=== PATIENT | female | born 2005 | race Two or more races ===

== ENCOUNTER 2023-11-05 13:56 | Outpatient (OUT) | payer OTHER, SELFPAY ==
--- NOTE | 2023-11-05 14:00 | US_ITS ---
[address] [address] Patient Name: ISIAH MARIE MRN: [id number] date: 2005 Sex: F Assigned Patient Location: [facility] Current Patient Location: [facility] Accession/Order Number: [id number] Exam Date: 11/05/2023 14:00 Report Date: 11/05/2023 15:42 At the request of: BRAYDON GOODEN Procedure: US OB transvaginal EXAMINATION: US OB transvaginal HISTORY: MISSED MENSES COMPARISON: No relevant comparison available. FINDINGS: GESTATIONAL SAC: Present and normal appearing. YOLK SAC: Present and normal appearing. POLE: Present and normal appearing. CARDIAC: Present. UTERUS: Normal size and appearance. OVARIES: Right: Normal. Left: Normal. CERVIX: 3.9 cm in length and closed. CUL-DE-SAC: Normal. OTHER: None. AGE BY LMP: 9 weeks 6 days LOUIE BY LMP: 06/03/2024 AGE BY US CRL: 10 weeks 1 day LOUIE BY US CRL: 06/01/2024 US/US OB transvaginal IMPRESSION: 1. Single live intrauterine . Electronically authenticated by: LUPILLO CARDONA Date: 11/05/2023 15:42
== END 2023-11-05 13:57 | disposition home or self-care (01) ==
LOC: NOMS 13:56
PROVIDERS: Family Provider Family Medicine; PCP Family Medicine; Visit Provider Obstetrics & Gynecology
DX: Z34.91 Encounter for supervision of normal pregnancy, unspecified, first trimester (principal); Z3A.10 10 weeks gestation of pregnancy; N92.6 Irregular menstruation, unspecified
CPT/HCPCS: 76817

== ENCOUNTER 2023-11-30 13:22 | Outpatient (OUT) | payer OTHER, SELFPAY ==
[2023-11-30 14:02] LABS: Basophils Percent Auto 0.3 % (0.2-2.0); Eosinophils Absolute Auto 0.1 10^3/uL (0.0-0.7); Eosinophils Percent Auto 0.7 % (0.9-7.0); Hematocrit 36.4 % (36.0-48.0); Hemoglobin 12.4 g/dL (12.0-16.0); Immature Granulocytes Abs Auto 0.06 10^3/uL (0.00-0.03); Immature Granulocytes Pct Auto 0.5 % (0.0-0.5); Lymphocytes Absolute Auto 1.5 10^3/uL (1.2-3.8); Lymphocytes Percent Auto 13.1 % (20.5-60.0); Mean Corpuscular HGB Conc 34.1 g/dL (29.9-35.2); Mean Corpuscular Hemoglobin 28.1 pg (26.7-34.0); Mean Corpuscular Volume 82.4 fL (81.0-99.0); Mean Platelet Volume 9.7 fL (9.5-13.5); Monocytes Absolute Auto 0.6 10^3/uL (0.3-0.8); Monocytes Percent Auto 4.8 % (1.7-12.0); Neutrophils Absolute Auto 9.3 10^3/uL (1.4-6.5); Neutrophils Percent Auto 80.6 % (43.0-75.0); Platelet Count 244 10^3/uL (150-450); Red Blood Count 4.42 10^6/uL (4.20-5.40); Red Cell Distribution Width 13.1 % (11.0-15.0); White Blood Count 11.6 10^3/uL (4.0-11.0)
[2023-11-30 14:12] LABS: Estimated Average Glucose 82 mg/dL; Glycohemoglobin A1C 4.5 % (4.5-6.2)
[2023-12-01 06:09] LABS: HBsAg Screen Negative (Negative); HCV Ab Non Reactive (Non Reactive); HIV Ab/p24 Ag Screen Non Reactive (Non Reactive)
[2023-12-01 12:09] LABS: Rubella Antibodies, IgG <0.90 index (Immune >0.99)
[2023-12-01 13:09] LABS: Rapid Plasma Reagin, Quant Non Reactive titer (NonRea<1:1)
== END 2023-11-30 13:23 | disposition home or self-care (01) ==
LOC: LAB 13:25
PROVIDERS: Family Provider Family Medicine; PCP Family Medicine; Visit Provider Obstetrics & Gynecology
DX: N92.6 Irregular menstruation, unspecified (principal)
CPT/HCPCS: 36415; 83036; 85025; 86592; 86762; 86803; 86850; 86900; 86901; 87086; 87340; 87389

== ENCOUNTER 2024-01-15 11:00 | Outpatient (OUT) | payer OTHER, SELFPAY ==
[2024-01-17 01:07] LABS: AFP Value 74.7 ng/mL (.); Insulin Dep Diabetes No (.); OSBR Risk 1 IN 3810 (.); Results Report (.)
== END 2024-01-15 11:01 | disposition home or self-care (01) ==
LOC: LAB 11:04
PROVIDERS: Family Provider Family Medicine; PCP Family Medicine; Visit Provider Obstetrics & Gynecology
DX: Z34.92 Encounter for supervision of normal pregnancy, unspecified, second trimester (principal); Z3A.17 17 weeks gestation of pregnancy
CPT/HCPCS: 36415; 82105

== ENCOUNTER 2024-01-18 18:52 | Outpatient (OUT) | payer OTHER, SELFPAY ==
--- NOTE | 2024-01-18 18:55 | US_ITS ---
[address] [address] Patient Name: ISIAH MARIE MRN: [id number] date: 2005 Sex: F Assigned Patient Location: US Current Patient Location: Accession/Order Number: [id number] Exam Date: 01/18/2024 19:06 Report Date: 01/19/2024 06:44 At the request of: BRAYDON GOODEN Procedure: US OB cervical length EXAMINATION: US OB anatomy, US OB cervical length HISTORY: SCREENING, , FOR ANATOMIC SURVEY Z36.89 COMPARISON: No relevant comparison available. TECHNIQUE: Transabdominal sonographic examination was performed for obstetrical and evaluation. FINDINGS: Number: 1 Heart Rate: 145.2 bpm H.B. /min Amniotic Fluid Volume: Subjectively normal Placental Location: Anterior with lower margin 4.8 cm from os. Cervix Length: 5.5 cm, closed. ANATOMY: Normal Structures -cerebellum, choroid plexus, cisterna magna, lateral cerebral ventricles, orbits, midline falx, hard palate, four-chamber heart, stomach, kidneys, bladder, umbilical cord insertion into abdomen, three-vessel cord, right upper extremity, left upper extremity, right lower extremity, left lower extremity. SUBOPTIMALLY SEEN: Cardiac outflow tracts and spine due to position. ABNORMALITIES: None BIOMETRY: BPD: 4.6 cm 20 weeks 0 days HC: 18.1 cm 20 weeks 4 days AC: 16.0 cm 21 weeks 1 days FL: 3.4 cm 20 weeks 4 days EFW:378.3 grams; 67% FL/AC: 21.0 FL/BPD: 72.9 HC/AC: 1.1 GESTATIONAL AGE: Age by EDC: 20 weeks 3 days LOUIE by EDC: 06/03/2023 Age by current US: 20 weeks 4 days LOUIE by current US: 06/02/2024 US/US OB cervical length IMPRESSION: 1. Single live intrauterine with growth detailed above. 2. Suboptimal visualization of the cardiac outflow tracts and the spine due to position. Electronically authenticated by: LUPILLO CARDONA Date: 01/19/2024 06:44
--- NOTE | 2024-01-18 18:55 | US_ITS ---
[address] [address] Patient Name: ISIAH MARIE MRN: [id number] date: 2005 Sex: F Assigned Patient Location: US Current Patient Location: Accession/Order Number: [id number] Exam Date: 01/18/2024 19:06 Report Date: 01/19/2024 06:44 At the request of: BRAYDON GOODEN Procedure: US OB anatomy EXAMINATION: US OB anatomy, US OB cervical length HISTORY: SCREENING, , FOR ANATOMIC SURVEY Z36.89 COMPARISON: No relevant comparison available. TECHNIQUE: Transabdominal sonographic examination was performed for obstetrical and evaluation. FINDINGS: Number: 1 Heart Rate: 145.2 bpm H.B. /min Amniotic Fluid Volume: Subjectively normal Placental Location: Anterior with lower margin 4.8 cm from os. Cervix Length: 5.5 cm, closed. ANATOMY: Normal Structures -cerebellum, choroid plexus, cisterna magna, lateral cerebral ventricles, orbits, midline falx, hard palate, four-chamber heart, stomach, kidneys, bladder, umbilical cord insertion into abdomen, three-vessel cord, right upper extremity, left upper extremity, right lower extremity, left lower extremity. SUBOPTIMALLY SEEN: Cardiac outflow tracts and spine due to position. ABNORMALITIES: None BIOMETRY: BPD: 4.6 cm 20 weeks 0 days HC: 18.1 cm 20 weeks 4 days AC: 16.0 cm 21 weeks 1 days FL: 3.4 cm 20 weeks 4 days EFW:378.3 grams; 67% FL/AC: 21.0 FL/BPD: 72.9 HC/AC: 1.1 GESTATIONAL AGE: Age by EDC: 20 weeks 3 days LOUIE by EDC: 06/03/2023 Age by current US: 20 weeks 4 days LOUIE by current US: 06/02/2024 US/US OB anatomy IMPRESSION: 1. Single live intrauterine with growth detailed above. 2. Suboptimal visualization of the cardiac outflow tracts and the spine due to position. Electronically authenticated by: LUPILLO CARDONA Date: 01/19/2024 06:44
--- OUTSIDE RECORDS SUMMARY | 2024-01-18 19:14 | XMS_ITS | CCD ---
Author Organization [facility] Care Team Providers Care Respiratory Manager Name Role Phone Danitza Cook MD Primary Care Provider 1( [phone] ALEJANDRA LAST Attending Unavailable DANITZA COOK Primary Care Unavailable AUSTIN Enamorado Attending Provider Ella Enamorado Attending Unavailable Ella Enamorado Admitting Unavailable NO FAMILY, PHYSICIAN Primary Care Unavailable Ella Enamorado Unavailable Danitza COOK Primary Care Physician Danitza COOK Attending Unavailable BRAYDON GOODEN Attending Unavailable Medications Current Medications Medication Drug Class(es) Dates Sig (Normalized) Sig (Original) acetaminophen 325 mg oral tablet (1 source) take 2 tablets by mouth every six hours as needed for pain acetaminophen (TYLENOL) 325 MG tablet Take 650 mg by mouth every 6 hours as needed for Pain 0 Active ethinyl estradiol 0.02 mg / ferrous fumarate 75 mg / norethindrone 1 mg oral tablet (1 source) Estrogen Start: 09-03-2023 take 1 tablet by mouth once daily Blisovi 24 FE oral tablet 1 tab(s), Oral, Daily, Refill(s) 0 Start Date: 09/03/23 Status: Ordered ibuprofen 400 mg oral tablet (1 source) Nonsteroidal Anti-inflammatory Drug Start: 03-03-2021 take 1 tablet by mouth every six hours as needed for pain ibuprofen (ADVIL;MOTRIN) 400 MG tablet Take 1 tablet by mouth every 6 hours as needed for Pain or Fever 30 tablet 1 03/03/2021 Active Post-OP Shoe/Soft Top Women - (1 source) Start: 08-01-2023 Post-OP Shoe/Soft Top Women - as directed Jul, Active Problems Problem Classification Problem Date Documented Da te Episodic/Chronic Asthma (1 source) Reactive airway disease 03-04-2021 Chronic Malaise and fatigue (2 sources) Fatigue; Translations: [Other fatigue] Onset: 09-03-2023 Episodic Other injuries and conditions due to external causes (1 source) Unspecified injury of left foot, initial encounter Episodic Other nutritional; endocrine; and metabolic disorders (2 sources) Overweight; Translations: [Overweight] Onset: 09-03-2023 Episodic Other nutritional; endocrine; and metabolic disorders (2 sources) Overweight in adulthood with body mass index of 25 or more but less than 30; Translations: [Body mass index (BMI) 26.0-26.9, adult] Onset: 09-03-2023 Episodic Other upper respiratory infections (1 source) Acute pharyngitis; Translations: [Acute pharyngitis, unspecified] Episodic Spondylosis; intervertebral disc disorders; other back problems (1 source) Acute thoracic back pain 02-22-2020 Episodic Superficial injury; contusion (1 source) Contusion of left foot, initial encounter Episodic Syncope (2 sources) Syncope and collapse; Translations: [Syncope and collapse] Onset: 09-03-2023 Episodic Unclassified (1 source) Unspecified injury of left foot, initial encounter; Translations: [Unspecified injury of left foot, initial encounter] Onset: 08-01-2023 Unclassified (1 source) Patient encounter status 09-02-2023 Viral infection (1 source) Acute viral disease; Translations: [Viral infection, unspecified] Episodic Results Test Name Value Interpretation Reference Range Facil ity Ambulatory Visit Summaryon 0 09-03-2023 Ambulatory Visit Summary MARIECARMEN BHATTI Mendoza :2005 Visit Date:09/03/2023 Ambulatory Visit Instructions Your Diagnosis Encounter for well adult exam with abnormal findings Fatigue Vasovagal episode Overweight BMI 26.0-26.9,adult Your Care Team Attending Physician - Danitza COOK MD Primary Care Physician - Danitza COOK MD This Is Your Medications List Contact prescribing physician if questions or concerns ethinyl estradiol-norethindr one (Blisovi 24 FE oral tablet) Procedures Performed Tonsillectomy and adenoidectomy. Discharge Vitals Heart Rate (Peripheral) 67 Respiratory Rate 16 Blood Pressure 100/70 Height 163.5 cm Height 64 in Weight 71.4 kg Weight 157.08 lb BMI 26.71 What to do next You Need to Schedule the Following Appointments Follow Up with Danitza COOK MD, FAM When: In 1 year Where: Medications What How Much When Instructions Unchanged ethinyl estradiol-norethindr one (Blisovi 24 FE oral tablet) 1 Tablets By Mouth Every day Contact prescribing physician if questions or concerns Medications and Immunizations Administered Not Given influenza virus vaccine, inactivated, Postpone due to refusal Allergies No Known Allergies Problems Ongoing - Any problem that you are currently receiving treatment for. BMI 26.0-26.9,adult Encounter for well adult exam with abnormal findings Fatigue Overweight Reactive airway disease Vasovagal episode Historical - Any problem that you are no longer receiving treatment for. Acute midline thoracic back pain Patient Survey You may receive a survey via text or e-mail asking about your office visit. Please share your experience with us by completing your survey. We appreciate your feedback and thank you for choosing us for your care. Education Materials Health Maintenance, Female Adopting a healthy lifestyle and getting preventive care are important in promoting health and wellness. Ask your health care provider about: ? The right schedule for you to have regular tests and exams. ? Things you can do on your own to prevent diseases and keep yourself healthy. What should I know about diet, weight, and exercise? Eat a healthy diet ? Eat a diet that includes plenty of vegetables, fruits, low-fat dairy products, and lean protein. ? Do not eat a lot of foods that are high in solid fats, added sugars, or sodium. Maintain a healthy weight Body mass index (BMI) is used to identify weight problems. It estimates body fat based on height and weight. Your health care provider can help determine your BMI and help you achieve or maintain a healthy weight. Get regular exercise Get regular exercise. This is one of the most important things you can do for your health. Most adults should: ? Exercise for at least 150 minutes each week. The exercise should increase your heart rate and make you sweat (moderate-intensity exercise). ? Do strengthening exercises at least twice a week. This is in addition to the moderate-intensity exercise. ? Spend less time sitting. Even light physical activity can be beneficial. Watch cholesterol and blood lipids Have your blood tested for lipids and cholesterol at 20 years of age, then have this test every 5 years. Have your cholesterol levels checked more often if: ? Your lipid or cholesterol levels are high. ? You are older than 40 years of age. ? You are at high risk for heart disease. What should I know about cancer screening? Depending on your health history and family history, you may need to have cancer screening at various ages. This may include screening for: ? Breast cancer. ? Cervical cancer. ? Colorectal cancer. ? Skin cancer. ? Lung cancer. What should I know about heart disease, diabetes, and high blood pressure? Blood pressure and heart disease ? High blood pressure causes heart disease and increases the risk of stroke. This is more likely to develop in people who have high blood pressure readings or are overweight. ? Have your blood pressure checked: ? Every 3?5 years if you are 18?39 years of age. ? Every year if you are 40 years old or older. Diabetes Have regular diabetes screenings. This checks your fasting blood sugar level. Have the screening done: ? Once every three years after age 40 if you are at a normal weight and have a low risk for diabetes. ? More often and at a younger age if you are overweight or have a high risk for diabetes. What should I know about preventing infection? Hepatitis B If you have a higher risk for hepatitis B, you should be screened for this virus. Talk with your health care provider to find out if you are at risk for hepatitis B infection. Hepatitis C Testing is recommended for: ? Everyone born from 1945 through 1965. ? Anyone with known risk factors for hepatitis C. Sexually transmitted infections (more content not included)... Normal [facility] Family Medicine Office/Clini c Noteon 09-03-2023 Family Medicine Office/Clinic Note Chief Complaint annual chk up, not fasting, no rfs History of Present Illness This is a 18-year-old female here for annual checkup. She is on oral contraceptive prescribed by Bee Watson [employer] She is up-to-date with her exams. Her menstrual cycles are regular. She denies any breakthrough bleeding or spotting. She does use barrier contraception. She used to bruise easily in high school, which was painful. She still bruises occasionally. Her glasses and dental care are up-to-date. She has been feeling tired, nauseous, and worn out. She can feel herself getting faint. She spoke to her mother about it, who told her that she may have low blood sugar. She goes to class on Thursday, Thursday, and Thursday. She wakes up at 5:00 a.m. and goes to class at 8:30 a.m. She does not eat breakfast . . She has a late lunch at [employer]. Usually something caffeinated as well as a sweet. She cooks meat, potatoes, for dinner meals. She stays well hydrated reasonably well. She drinks Arnold Kim type combination tea and lemonade. She denies any chest pain. Occasionally she feels shaky and jittery when she is anxious. Supplemental Information She has a contusion on her foot. She was trying to lift up one of the TVs over the holidays and dropped it on . She had x-rays, which showed no fracture. She denies any problems with bowel or bladder. She denies any rashes, lumps, bumps, or spots. She denies any joint pains. Review of Systems PHQ Score Initial Depression Screen Score: 0 SCORE See HPI otherwise negative Physical Exam Vitals & Measurements HR: 67(Peripheral) RR: 16 BP: 100/70 SpO2: 100% HT: 64 in HT: 163.5 cm WT: 71.4 kg WT: 157.08 lb BMI: 26.71 The patient is adequately groomed, reasonably hydrated. Normocephalic, atraumatic. Conjunctiva clear, wearing lenses. No scleral icterus. TMs are clear. Oropharynx pink and moist. Excellent havasupai dentition. Without thyromegaly. Clear bilaterally. Regular rate and rhythm. No murmur, gallop, or rub. There is a mild sinus arrhythmia with inspiration. Abdomen: Overweight, nontender, hyperactive bowel sounds. No organomegaly. Well-developed. Dark skin tones. No rash, no bruising. Cooperative, insight full, talkative. Assessment/Plan 1. Encounter for well adult exam with abnormal findings (Z00.01: Encounter for general adult medical examination with abnormal findings) Discussed with patient recommendation to continue with optometry and dental care. Vaccines appear to be relatively up to date. Continue with gynecologic follow-up. 2. Fatigue (R53.83: Other fatigue) Multifactorial. Strongly suggestive of vasovagal type episodes probably related to poor hydration and poor calorie intake. She is going without calories 16 to 18 hours/day and then uses something caffeinated and sweet. We did discuss at length more propria at food choices with protein and complex carbohydrates. She is agreeable to checking laboratories to rule out thyroid disorder, anemia renal dysfunction. After these are back we will contact and determine if any further management needs to be assessed. Ordered: Basic Metabolic Panel CBC w/ Auto Diff TSH With T4fr Reflex 3. Vasovagal episode (R55: Syncope and collapse) We did discuss maintaining better fluid hydration caution with changing positions, maintaining some level of cardiovascular exercise and notify me if this becomes more persistent and would need to give consideration to Holter monitor EKG. Ordered: Basic Metabolic Panel CBC w/ Auto Diff TSH With T4fr Reflex 4. Overweight (E66.3: Overweight) The standard range for ages 18 and older is >=18.5 and < 25 kg/m2. Your BMI today was above this range, this falls in the overweight to obese category and there are medical benefits to weight loss. We can offer counselling, referral, and/or medical support in addressing this problem. Your BMI and weight management will be followed at subsequent visits. 5. BMI 26.0-26.9,adult (Z68.26: Body mass index [BMI] 26.0-26.9, adult) See #4 Orders: albuterol, 2 puff(s), Inhalation, q6hr for wheezing, 1 EA, Refill(s) 0, [facility]/pharmacy #[id number], 163, cm, 10/18/21 8:35:00 EDT, Height/Length Dosing, 73, kg, 10/18/21 8:35:00 EDT, Weight Dosing fluconazole, 150 mg = 1 tab(s), Oral, Once, # 1 tab(s), Refills(s) 0, Pharmacy: [facility], 163, cm, 10/18/21 8:35:00 EDT, Height/Length Dosing, 73, kg, 10/18/21 8:35:00 EDT, Weight Dosing Portions of this record may have been created with voice recognition artificial intelligence software, specifically [employer], [employer] and or [employer]. Substitutions may have occurred due to the inherent limitations of voice recognition and artificial intelligence software. Follow-up With When Contact Information CHRISTIAN LAGUNA, SHWETHA Mabry In 1 year Additional Instructions: Patient Education Health Maintenance, Female Problem List/Past Medical History Ongoing BMI 26.0-26.9,adult Encounter for well (more content not included)... Normal [facility] Comment on above: Result Comment: Meeta ariana Signed By: Danitza COOK MD\.thuy\Date and Time Signed: 09/03/23 19:27 EST Patient Educationon 09-02-19 24 Patient Education Obstetrics and Gynecology Health Maintenance, Female Adopting a healthy lifestyle and getting preventive care are important in promoting health and wellness. Ask your health care provider about: ? The right schedule for you to have regular tests and exams. ? Things you can do on your own to prevent diseases and keep yourself healthy. What should I know about diet, weight, and exercise? Eat a healthy diet ? Eat a diet that includes plenty of vegetables, fruits, low-fat dairy products, and lean protein. ? Do not eat a lot of foods that are high in solid fats, added sugars, or sodium. Maintain a healthy weight Body mass index (BMI) is used to identify weight problems. It estimates body fat based on height and weight. Your health care provider can help determine your BMI and help you achieve or maintain a healthy weight. Get regular exercise Get regular exercise. This is one of the most important things you can do for your health. Most adults should: ? Exercise for at least 150 minutes each week. The exercise should increase your heart rate and make you sweat (moderate-intensity exercise). ? Do strengthening exercises at least twice a week. This is in addition to the moderate-intensity exercise. ? Spend less time sitting. Even light physical activity can be beneficial. Watch cholesterol and blood lipids Have your blood tested for lipids and cholesterol at 20 years of age, then have this test every 5 years. Have your cholesterol levels checked more often if: ? Your lipid or cholesterol levels are high. ? You are older than 40 years of age. ? You are at high risk for heart disease. What should I know about cancer screening? Depending on your health history and family history, you may need to have cancer screening at various ages. This may include screening for: ? Breast cancer. ? Cervical cancer. ? Colorectal cancer. ? Skin cancer. ? Lung cancer. What should I know about heart disease, diabetes, and high blood pressure? Blood pressure and heart disease ? High blood pressure causes heart disease and increases the risk of stroke. This is more likely to develop in people who have high blood pressure readings or are overweight. ? Have your blood pressure checked: ? Every 3?5 years if you are 18?39 years of age. ? Every year if you are 40 years old or older. Diabetes Have regular diabetes screenings. This checks your fasting blood sugar level. Have the screening done: ? Once every three years after age 40 if you are at a normal weight and have a low risk for diabetes. ? More often and at a younger age if you are overweight or have a high risk for diabetes. What should I know about preventing infection? Hepatitis B If you have a higher risk for hepatitis B, you should be screened for this virus. Talk with your health care provider to find out if you are at risk for hepatitis B infection. Hepatitis C Testing is recommended for: ? Everyone born from 1945 through 1965. ? Anyone with known risk factors for hepatitis C. Sexually transmitted infections (STIs) ? Get screened for STIs, including gonorrhea and chlamydia, if: ? You are sexually active and are younger than 24 years of age. ? You are older than 24 years of age and your health care provider tells you that you are at risk for this type of infection. ? Your sexual activity has changed since you were last screened, and you are at increased risk for chlamydia or gonorrhea. Ask your health care provider if you are at risk. ? Ask your health care provider about whether you are at high risk for HIV. Your health care provider may recommend a prescription medicine to help prevent HIV infection. If you choose to take medicine to prevent HIV, you should first get tested for HIV. You should then be tested every 3 months for as long as you are taking the medicine. ? If you are about to stop having your period (premenopausal) and you may become , seek counseling before you get . ? Take 400 to 800 micrograms (mcg) of folic acid every day if you become . ? Ask for control (contraception) if you want to prevent . Osteoporosis and menopause Osteoporosis is a disease in which the bones lose minerals and strength with aging. This can result in bone fractures. If you are 65 years old or older, or if you are at risk for osteoporosis and fractures, ask your health care provider if you should: ? Be screened for bone loss. ? Take a calcium or vitamin D supplement to lower your risk of fractures. ? Be given hormone replacement therapy (HRT) to treat symptoms of menopause. Follow these instructions at home: Alcohol use ? Do not drink alcohol if: ? Your health care provider tells you not to drink. ? You are , may be , or are planning to become . ? If you drink alcohol: ? Limit how much you have to: ? 0?1 drink a day. ? Know how much alcohol is in y (more content not included)... Normal [facility] XR foot LT min 3V*on 023 XR foot LT min 3V* [facility] Main [place] [address] [place] [id number] XRay Report Signed Patient: Carmen Marie MR#: [id number] 2 : 2005 Acct:[id number] Age/Sex: 18 / F ADM Date: 08/01/23 Loc: [facility] Room: Type: [facility] Attending Dr: Ella Enamorado DIETITIAN Copies to: Ella Enamorado APRN Ordering Provider: Ella Enamorado APRN Date of Service: 08/01/23 XR/XR foot LT min 3V*: Injury of left foot, initial encounter 3 views left foot plain film COMPARISON:None HISTORY: Left foot injury ACUTE FINDINGS: None DEGENERATIVE CHANGE: Unremarkable SOFT TISSUE FINDINGS: Unremarkable JOINT EFFUSION: None POSTOP CHANGES: None BONE MINERALIZATION: Adequate XR/XR foot LT min 3V* IMPRESSION: No acute findings. Impression dictated by: Marek Plascencia M.D.08/01/2023 1:00 PM Dictation Location: [place] [address] Transcribed By: [facility] 08/01/23 1300 Dictated By: Marek Plascencia DO 08/01/23 1259 Signed By: 08/01/23 1300 [facility] Group A Strep DNAon 03-05-20 21 Group A Strep DNA Specimen Description .THROAT SWAB Special Requests NOT REPORTED Direct Exam Negative: Specimen negative for Streptococcus pyogenes by DNA amplification. Report Status FINAL 03/05/2021 [facility] Comment on above: Performed By: #### G ASDNA #### [place] [id number] Roller Coaster Designer: Lonny Aquino MD [facility] [address] [place] [address] Roller Coaster Designer: Can Lala MD [id number] 03-04-2021 SARS-CoV-2 (COVID-19) RNA SKINNY+probe Ql (Unsp spec) Not detected Normal NOTDET [facility] Comment on above: Result Comment: Rapid NAAT: The specimen is NEGATIVE for SARS-CoV-2, the novel coronavirus associated with COVID-19. The ID NOW COVID-19 assay is designed to detect the virus that causes COVID-19 in patients with signs and symptoms of infection who are suspected of COVID-19. An individual without symptoms of COVID-19 and who is not shedding SARS-CoV-2 virus would expect to have a negative (not detected) result in this assay. Negative results should be treated as presumptive and, if inconsistent with clinical signs and symptoms or necessary for patient management, should be tested with an alternative molecular assay. Negative results do not preclude SARS-CoV-2 infection and should not be used as the sole basis for patient management decisions. Fact sheet for Healthcare Providers: https://www.fda.gov/media/210947/download Fact sheet for Patients: https://www.fda.gov/media/195065/download Methodology: Isothermal Nucleic Acid Amplification Performed By: #### C OVRB #### [facility] [address] [place] [address] Roller Coaster Designer: Can Lala MD COVID-19, RapidOrdered By: Georges Last on 03-03-2021 SARS-CoV-2 (COVID-19) RNA SKINNY+probe Ql (Unsp spec) Not detected Not Detected [facility] Confer Phone: Comment on above: Rapid NAAT: The specimen is NEGATIVE for SARS-CoV-2, the novel coronavirus associated with COVID-19. The ID NOW COVID-19 assay is designed to detect the virus that causes COVID-19 in patients with signs and symptoms of infection who are suspected of COVID-19. An individual without symptoms of COVID-19 and who is not shedding SARS-CoV-2 virus would expect to have a negative (not detected) result in this assay. Negative results should be treated as presumptive and, if inconsistent with clinical signs and symptoms or necessary for patient management, should be tested with an alternative molecular assay. Negative results do not preclude SARS-CoV-2 infection and should not be used as the sole basis for patient management decisions. Fact sheet for Healthcare Providers: https://www.fda.gov/media/480802/download Fact sheet for Patients: https://www.fda.gov/media/679287/download Methodology: Isothermal Nucleic Acid Amplification Specimen Description .NASOPHARYNGEAL SWAB [facility]: [facility] Phone: Strep Gr A Direct Agon 03-03 Strep Gr A Direct Ag Specimen Descriptio n .THROAT Special Requests NOT REPORTED Direct Exam Rapid Strep A negative. A negative Rapid Group A Strep Screen result does not rule out the possibility of Group A Streptococci in the specimen. The [employer] recommends confirmation testing. Therefore, a Group A Strep DNA test will be performed. Report Status FINAL 03/03/2021 Normal [facility] Comment on above: Performed By: #### S GPA #### [facility] [address] [place], [place] [id number] Roller Coaster Designer: Can Lala MD Strep Screen Group A ThroatO rdered By: Alejandra Last on 03-03-2021 S. pyogenes Ag IA Ql (Unsp spec) Rapid Strep A negative. A negative Rapid Group A Strep Screen result does not rule out the possibility of Group A Streptococci in the specimen. The [employer] recommends confirmation testing. Therefore, a Group A Strep DNA test will be performed. Meet You Phone: Special Requests NOT REPORTED [facility]: Specimen Description .THROAT [facility] Ahaali Phone: [facility] [employer] Phone: Vital Signs Date Time Vital Sign Value Performing Clinician Facility 09-03-2023 13:19-0500 [facility] 13:19-0500 Diastolic blood pressure 70 mm[Hg] Danitza COOK [facility] 09-03-2023 13:19-0500 Heart rate 67 /min Danitza COOK [facility] 09-03-2023 13:19-0500 Respiratory rate 16 /min Danitza COOK [facility] 09-03-2023 13:19-0500 SaO2% (BldA) [Mass fraction] 100 % Danitza COOK [facility] 09-03-2023 13:19-0500 Systolic blood pressure 100 mm[Hg] Danitza COOK [facility] 08-01-2023 14:00-0500 Body height 165.1 cm Ella Enamorado Other [employer] [employer] Other 08-01-2023 14:00-0500 Body mass index (BMI) [Ratio] 25.79 kg/m2 Ella Enamorado Other [employer] Other 08-01-2023 14:00-0500 Body temperature 99.5 [degF] Ella Enamorado Other [employer] Other 08-01-2023 14:00-0500 Body weight 70.31 kg Ella Enamorado Other [facility] Other 08-01-2023 14:00-0500 Respiratory rate 18 /min Ella Enamorado Other [employer] Other 08-01-2023 14:00-0500 SaO2% (BldA) [Mass fraction] 98 % Ella Fei Other [employer] Other 03-03-2021 21:26-0400 Body height 165.1 cm Alejandra Last MD Work Phone: [employer] Work Phone: 03-03-2021 21:26-0400 Body mass index (BMI) [Ratio] 27.12 kg/m2 Alejandra Last MD Work Phone: [employer] Work Phone: 03-03-2021 21:26-0400 Body temperature 100.71 [degF] Alejandra Last MD Work Phone: [employer] Work Phone: 03-03-2021 21:26-0400 Body weight 73.94 kg Alejandra Last MD Work Phone: [employer] Work Phone: 03-03-2021 21:26-0400 Diastolic blood pressure 62 mm[Hg] Alejandra Last MD Work Phone: [employer] Work Phone: 03-03-2021 21:26-0400 Heart rate 96 /min Alejandra Last MD Work Phone: [employer] Work Phone: 03-03-2021 21:26-0400 Respiratory rate 16 /min Alejandra Last MD Work Phone: [employer] Work Phone: 03-03-2021 21:26-0400 SaO2% (BldA) [Mass fraction] 98 % Alejandra Last MD Work Phone: [employer] Work Phone: 03-03-2021 21:26-0400 Systolic blood pressure 128 mm[Hg] Alejandra Last MD Work Phone: [employer] Work Phone: Encounters Encounter Date Encounter Type Care Provider Facility Start: 12-03-2023 End: 12-03-2023 ambulatory BRAYDON GIACOMO Not Available Start: 11-05-2023 End: 11-05-2023 ambulatory BRAYDON GIACOMO Not Available Start: 09-03-2023 End: 09-04-2023 ambulatory Kennike COOK Facility:[facility] Start: 09-03-2023 End: 09-03-2023 Encounter for general adult medical examination with abnormal findings Kennike COOK [facility] Start: 09-03-2023 End: 09-03-2023 Patient encounter procedure Kennike COOK [facility] Start: 08-01-2023 End: 08-01-2023 ambulatory Ella Enamorado Facility:[facility] Start: 08-01-2023 Office outpatient ne w 20 minutes Ella Enamorado [facility] Start: 08-01-2023 End: 08-01-2023 ambulatory AUSTIN Enamorado Work Phone: [facility] Work Phone: Start: 08-01-2023 End: 08-01-2023 Patient encounter procedure AUSTIN Enamorado Work Phone: [facility] Work Phone: Start: 03-03-2021 End: 03-04-2021 Emergency department patient visit ALEJANDRA LAST [facility] Start: 03-03-2021 End: 03-03-2021 Emergency department patient visit Alejandra Last MD Work Phone: [facility] ED Comment on above: Acute pharyngitis, u nspecified etiology (Primary Dx); Acute viral syndrome Procedures Date Procedure Procedure Detail Performing Clinician Start: 08-01-2023 X-ray of left foot AUSTIN Enamorado Work Phone: Start: 03-03-2021 COVID-19, RAPID Alejandra Last MD Work Phone: Start: 03-03-2021 Iaadiadoo streptococ cus group a Alejandra Last MD Work Phone: Tonsillectomy and adenoidectomy Danitza COOK Plan of Treatment Date Care Activity Detail Author Start: 04-03-2021 Influenza vaccination Flu vaccine (# 1) [facility] Phone: Start: 2019 Meningococcal (ACWY) vaccine (1 - 2-dose series) Meningococcal (ACWY) vaccine (1 - 2-dose series) [facility] Phone: Start: 2019 Screening for Chlamy rika trachomatis Chlamydia screen [facility] Phone: Start: 2018 HIV screening HIV screen [facility] Work Phone: Start: 2015 COVID-19 Vaccine (1) COVID-19 Vaccin e (1) [facility] Phone: Start: 2014 HPV vaccine (1 - 2-d ose series) HPV vaccine (1 - 2-dose series) [facility] Phone: Start: 2010 DTaP/Tdap/Td vaccine (1 - Tdap) DTaP/Tdap/Td vaccine (1 - Tdap) [facility] Phone: Start: 2004 Hepatitis A vaccine (1 of 2 - 2-dose series) Hepatitis A vaccine (1 of 2 - 2-dose series) [facility] Phone: Start: 2004 Measles,Mumps,Rubell a (MMR) vaccine (1 of 2 - Standard series) Measles,Mumps,Rubella (MMR) vaccine (1 of 2 - Standard series) [facility]: 2004 Varicella vaccine (1 of 2 - 2-dose childhood series) Varicella vaccine (1 of 2 - 2-dose childhood series) [employer] Phone: Start: 2003 Polio vaccine (1 of 3 - 4-dose series) Polio vaccine (1 of 3 - 4-dose series) [employer] Phone: Start: 2003 Hepatitis B vaccine (1 of 3 - 3-dose primary series) Hepatitis B vaccine (1 of 3 - 3-dose primary series) [employer] Phone: End: 03-03-2021 Strep A DNA probe, amplification Strep A DNA probe, amplification Lab Routine Once for 1 Occurrences starting 03/03/2021 until 03/03/2021 [employer] Phone: Comment on above: Once for 1 Occurrenc es starting 03/03/2021 until 03/03/2021 Strep A DNA probe, amplification Strep A DNA probe, amplification Lab Routine 03/03/2021 9:46 PM EDT [employer] [facility] Phone: Immunizations Immunization Date Immunization Notes Care Provider Fa cility 08-07-2021 SARS-CoV-2 (COVID-19 ) Ad26 vaccine, recombinant Danitza COOK [facility] 01-08-2021 SARS-CoV-2 (COVID-19 ) mRNA BNT-162b2 [facility] Comment on above: Result Comment: alysa @ ra/w 12-18-2020 SARS-CoV-2 (COVID-19 ) mRNA BNT-162b2 [facility] Comment on above: Result Comment: alysa @ ra/w 02-24-2020 meningococcal polysaccharide (groups A, C, Y and W-135) diphtheria toxoid conjugate vaccine (MCV4P) Danitza COOK [facility] 09-11-2016 HPV, unspecified formulation Danitza [email or web address] [facility] 05-12-2016 HPV, unspecified formulation Danitza [email or web address] [facility] 03-11-2016 diphtheria, tetanus toxoids and acellular pertussis vaccine Danitza [email or web address] [facility] 03-11-2016 HPV, unspecified formulation Danitza [email or web address] [facility] 03-11-2016 meningococcal ACWY vaccine, unspecified formulation Danitza [email or web address] [facility] 01-02-2009 Diphtheria, tetanus toxoids and acellular pertussis vaccine, and poliovirus vaccine, inactivated [facility] [email or web address] [facility] 01-02-2009 varicella virus vaccine [email or web address] [email or web address] [facility] 10-31-2005 measles, mumps and rubella virus vaccine Danitza [email or web address] [facility] 08-12-2004 diphtheria, tetanus toxoids and acellular pertussis vaccine [facility] [email or web address] [facility] 08-12-2004 varicella virus vaccine [email or web address] [facility] 05-14-2004 haemophilus influenz ae type b vaccine, PRP-T conjugate Christike [email or web address] [facility] 05-10-2004 measles, mumps and rubella virus vaccine Star [email or web address] [facility] 2003 DTaP-hepatitis B and poliovirus vaccine [facility] 2003 haemophilus influenz ae type b vaccine, PRP-T conjugate [employer] [facility] 2003 diphtheria, tetanus toxoids and acellular pertussis vaccine Danitza [email or web address] [facility] 2003 haemophilus influenz ae type b vaccine, PRP-T conjugate [employer] [facility] 2003 poliovirus vaccine, unspecified formulation [facility] 2003 DTaP-hepatitis B and poliovirus vaccine [facility] [email or web address] [facility] 2003 haemophilus influenz ae type b vaccine, PRP-T conjugate [employer] [facility] 2003 hepatitis B vaccine, pediatric or pediatric/adolescent dosage [email or web address] [facility] [place] NEGATED: Highlighted row has not occurred!09-03-2023 influenza virus vaccine, unspecified formulation [employer]ellitixjason [email or web address] [facility] NEGATED: Highlighted row has not occurred!10-18-2021 influenza virus vaccine, unspecified formulation [email or web address] [facility] NEGATED: Highlighted row has not occurred!02-24-2020 influenza virus vaccine, unspecified formulation [employer] [facility] Payers Date Payer Category Payer Self-pay 2023 Unknown [id number] 2019 Unknown [id number] 2018 Unknown [id number] 2003 Unknown [id number] 2003 Unknown [id number] 2003 Unknown [id number] 1982 Unknown [id number] Unknown [id number] [id number] Social History Date Type Detail Facility Start: 03-03-2021 End: 09-03-2023 Tobacco smoking status NHIS Never smoker [facility] Start: 03-03-2021 Tobacco use and exposure Never used [employer] Start: 03-03-2021 Alcohol intake Lifetime non-d matti (finding) [employer] Work Phone: Start: 03-03-2021 History SDOH Alcohol Frequency 1 [employer] Work Phone: Start: 2005 Sex Assigned At Not on file M [facility]ada Work Phone: Exposure to SARS-CoV -2 (event) Not sure [employer] Start: 2005 Sex Assigned At Female F [facility] Sex Assigned At [facility] Tobacco smoking status Never [facility] Functional Status Date Assessment Result Facility 09-03-2023 Functional Status N/A [facility] Evaluation + Plan note 09-03-2023 Note Date & Type Note Facility 09-03-2023 Evaluation + Plan note Diagnostic Tests PendingCBC w/ Auto Diff 09/03/23Basic Metabolic Panel 09/03/23TSH With T4fr Reflex 09/03/23 [facility] Hospital Discharge instructions 09-02-2023 Note Date & Type Note Facility 09-02-2023 Hospital Discharg e instructions Patient Education 09/02/2023 11:41:06 Health Maintenance, Female Health Maintenance, Female Adopting a healthy lifestyle and getting preventive care are important in promoting health and wellness. Ask your health care provider about: The right schedule for you to have regular tests and exams. Things you can do on your own to prevent diseases and keep yourself healthy. What should I know about diet, weight, and exercise? Eat a healthy diet Eat a diet that includes plenty of vegetables, fruits, low-fat dairy products, and lean protein. Do not eat a lot of foods that are high in solid fats, added sugars, or sodium. Maintain a healthy weight Body mass index (BMI) is used to identify weight problems. It estimates body fat based on height and weight. Your health care provider can help determine your BMI and help you achieve or maintain a healthy weight. Get regular exercise Get regular exercise. This is one of the most important things you can do for your health. Most adults should: Exercise for at least 150 minutes each week. The exercise should increase your heart rate and make you sweat (moderate-intensity exercise). Do strengthening exercises at least twice a week. This is in addition to the moderate-intensity exercise. Spend less time sitting. Even light physical activity can be beneficial. Watch cholesterol and blood lipids Have your blood tested for lipids and cholesterol at 20 years of age, then have this test every 5 years. Have your cholesterol levels checked more often if: Your lipid or cholesterol levels are high. You are older than 40 years of age. You are at high risk for heart disease. What should I know about cancer screening? Depending on your health history and family history, you may need to have cancer screening at various ages. This may include screening for: Breast cancer. Cervical cancer. Colorectal cancer. Skin cancer. Lung cancer. What should I know about heart disease, diabetes, and high blood pressure? Blood pressure and heart disease High blood pressure causes heart disease and increases the risk of stroke. This is more likely to develop in people who have high blood pressure readings or are overweight. Have your blood pressure checked: ?Every 3 5 years if you are 18 39 years of age. ?Every year if you are 40 years old or older. Diabetes Have regular diabetes screenings. This checks your fasting blood sugar level. Have the screening done: Once every three years after age 40 if you are at a normal weight and have a low risk for diabetes. More often and at a younger age if you are overweight or have a high risk for diabetes. What should I know about preventing infection? Hepatitis B If you have a higher risk for hepatitis B, you should be screened for this virus. Talk with your health care provider to find out if you are at risk for hepatitis B infection. Hepatitis C Testing is recommended for: Everyone born from 1945 through 1965. Anyone with known risk factors for hepatitis C. Sexually transmitted infections (STIs) Get screened for STIs, including gonorrhea and chlamydia, if: ?You are sexually active and are younger than 24 years of age. ?You are older than 24 years of age and your health care provider tells you that you are at risk for this type of infection. ?Your sexual activity has changed since you were last screened, and you are at increased risk for chlamydia or gonorrhea. Ask your health care provider if you are at risk. Ask your health care provider about whether you are at high risk for HIV. Your health care provider may recommend a prescription medicine to help prevent HIV infection. If you choose to take medicine to prevent HIV, you should first get tested for HIV. You should then be tested every 3 months for as long as you are taking the medicine. If you are about to stop having your period (premenopausal) and you may become , seek counseling before you get . Take 400 to 800 micrograms (mcg) of folic acid every day if you become . Ask for control (contraception) if you want to prevent . Osteoporosis and menopause Osteoporosis is a disease in which the bones lose minerals and strength with aging. This can result in bone fractures. If you are 65 years old or older, or if you are at risk for osteoporosis and fractures, ask your health care provider if you should: Be screened for bone loss. Take a calcium or vitamin D supplement to lower your risk of fractures. Be given hormone replacement therapy (HRT) to treat symptoms of menopause. Follow these instructions at home: Alcohol use Do not drink alcohol if: ?Your health care provider tells you not to drink. ?You are , may be , or are planning to become . If you drink alcohol: ?Limit how much you have to: ?0 1 drink a day. ?Know how much alcohol is in your drink. In the .[place] one drink equals one 12 oz bottle of beer (355 mL), one 5 oz glass of wine (148 mL), or one 1 oz glass of hard liquor (44 mL). Lifestyle Do not use any products that contain nicotine or tobacco. These products include cigarettes, chewing tobacco, and vaping devices, such as e-cigarettes. If you need help quitting, ask your health care provider. Do not use street drugs. Do not share needles. Ask your health care provider for help if you need support or information about quitting drugs. General instructions Schedule regular health, dental, and eye exams. Stay current with your vaccines. Tell your health care provider if: ?You often feel depressed. ?You have ever been abused or do not feel safe at home. Summary Adopting a healthy lifestyle and getting preventive care are important in promoting health and wellness. Follow your health care provider's instructions about healthy diet, exercising, and getting tested or screened for diseases. Follow your health care provider's instructions on monitoring your cholesterol and blood pressure. This information is not intended to replace advice given to you by your health care provider. Make sure you discuss any questions you have with your health care provider. Document Revised: 12/09/2021 Document Reviewed: 12/09/2021 [employer] Patient Education 2022 [employer]. Follow Up Care 07/23/2023 13:12:42 With:Danitza COOK MD, FAM Address: When:Within 1 Year(s) [facility] [place] Evaluation note 08-01-2023 Note Date & Type Note Facility 08-01-2023 Evaluation note Encounter Date Diagnosis Assessment Notes Jul, Injury of left foot, initial encounter (ICD-10 - S99.922A) Jul, Contusion of left foot, initial encounter (ICD-10 - S90.32XA) RICE (rest, ice, compress, elevate) material was printed Images and report reviewed. No acute bony injury. Discussed findings with melanie. Soft top shoe provided to patient to wear for comfort while healing. RICE. Tylenol/Motrin. Follow up with PCP or podiatry in 1 week if no improvement, sooner if sx change or worsen. Patient verbalizes understanding and is agreeable to treatment plan. [facility] Other Evaluation note Note Date & Type Note Facility Evaluation note Diagnosis Acute pharyngitis, unspecified etiology- Primary Acute viral syndrome documented in this encounter [employer] Work Phone: Evaluation note Note Date & Type Note Facility Evaluation note No assessment information availa [facility] Work Phone: Hospital course Narrative Note Date & Type Note Facility Hospital course Narrative No data available for this section [facility] [place] [facility] Discharge instructions Attachments Note Date & Type Note Facility Hospital Discharge instructions The following attachments cannot be sent through Care Everywhere.Viral Infections: Teen (Danish)Sore Throat: Teen (Danish)documented in this encounter [employer] Work Phone: Progress note Note Date & Type Note Facility Progress note No data available for this section [facility] [employer] Advance Directives No Advanced Directives Records FoundDocuments on File Type Date Recorded Patient Edi Coordinator Expl anation ACP-Advance Directive 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 Patients mother also reports fevers at home of 101.3. Ordered Prescriptions (unrec ognized section and content) Prescription Sig Dispensed Refills Start Date End Da te ibuprofen (ADVIL;MOTRIN) 400 MG tablet Take 1 tablet by mouth every 6 hours as needed for Pain or Fever 30 tablet 1 03/03/2021 INFORMATION SOURCE (unrecogn ized section and content) DATE CREATED AUTHOR 03/06/2021 [employer] [employer] DATE CREATED AUTHOR AUTHOR'S ORGANIZ ATION 08/06/2023 [facility] DATE CREATED AUTHOR AUTHOR'S ORGANIZ ATION 10/09/2023 [facility] DATE CREATED AUTHOR AUTHOR'S ORGANIZ ATION 12/04/2023 [facility] [employer] Care Teams (unrecognized sec tion and content) Team Status: Inactive Member Role Status Dates Ella Enamorado APRN Attending Provider Active Goals (unrecognized section and content) Goals may be documented in a n alternate sectionNo Information No data available for this section FOR RECORDS PERTAINING TO PATIENTS WHO ARE OR HAVE BEEN ENROLLED IN A CHEMICAL DEPENDENCY/SUBSTANCEABUSE PROGRAM, SOME INFORMATION MAY BE OMITTED. This clinical summary was aggregated from multiple sources. Caution should be exercised in using it in the provision of clinical care. This summary normalizes information from multiple sources, and as a consequence, information in this document may materially change the coding, format and clinical context of patient data. In addition, data may be omitted in some cases. CLINICAL DECISIONS SHOULD BE BASED ON THE PRIMARY CLINICAL RECORDS. [employer] provides no warranty or guarantee of the accuracy or completeness of information in this document.
== END 2024-01-18 18:53 | disposition home or self-care (01) ==
LOC: US 18:52
PROVIDERS: Family Provider Family Medicine; PCP Family Medicine; Visit Provider Obstetrics & Gynecology
DX: Z36.89 Encounter for other specified antenatal screening (principal); O09.213 Supervision of pregnancy with history of pre-term labor, third trimester; Z3A.20 20 weeks gestation of pregnancy
CPT/HCPCS: 76805; 76817

== ENCOUNTER 2024-02-18 09:11 | Outpatient (OUT) | payer OTHER, SELFPAY ==
--- NOTE | 2024-02-18 09:14 | US_ITS ---
[address] [address] Patient Name: ISIAH MARIE MRN: [facility]:[id number] date: 2005 Sex: F Assigned Patient Location: [facility] Current Patient Location: [facility] Accession/Order Number: [id number] Exam Date: 02/18/2024 09:14 Report Date: 02/18/2024 10:15 At the request of: BRAYDON GOODEN Procedure: US OB incomplete anatomy EXAM: US OB incomplete anatomy HISTORY: INCOMPLETE ANATOMY COMPARISON: Ultrasound OB anatomy 01/18/2024 TECHNIQUE: Transabdominal ultrasound. FINDINGS: Heart rate: 1 41 bpm Presentation: Cephalic Anatomy: Spine and cardiac outflow tracts. GA: 24 weeks 6 days LOUIE: 06/03/2024 US/US OB incomplete anatomy IMPRESSION: 1. Single live intrauterine . 2. Adequate visualization of the spine and cardiac outflow tracts; no appreciable abnormality. Electronically authenticated by: LUPILLO CARDONA Date: 02/18/2024 10:15
--- OUTSIDE RECORDS SUMMARY | 2024-02-18 09:31 | XMS_ITS | CCD ---
Author Organization [facility] Care Team Providers Care Home Care Attendant Name Role Phone Danitza Cook MD Primary Care Provider ALEJANDRA LAST Attending Unavailable DANITZA COOK Primary Care Unavailable AUSTIN Enamorado Attending Provider Ella Enamorado Attending Unavailable Ella Enamorado Admitting Unavailable NO FAMILY, PHYSICIAN Primary Care Unavailable Ella Enamorado Unavailable Danitza COOK Primary Care Physician Danitza COOK Attending Unavailable BRAYDON GOODEN Attending Unavailable BRAYDON GOODEN Attending Unavailable BRAYDON GOODEN Attending Unavailable Medications [...] Visit Summaryon 0 09-03-2023 Ambulatory Visit Summary CARMEN MARIE :2005 Visit Date:09/03/2023 Ambulatory Visit Instructions Your [...] Schedule the Following Appointments Follow Up with CHRISTIAN LAGUNA, SHWETHA Mabry When: In 1 year Where: Medications What [...] transmitted infections (more content not included)... Normal [facility] Family Medicine Office/Clini c Noteon 09-03-2023 Family Medicine Office/Clinic Note Chief Complaint annual chk up, not fasting, no rfs History of Present Illness This is a 18-year-old female here for annual checkup. 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 Her [...] . She has a late lunch at [employer]. Usually something caffeinated as well as a sweet. She cooks meat, potatoes, for dinner meals. She stays well hydrated reasonably well. She drinks ArnOutbox type combination tea and lemonade. She denies [...] are clear. Oropharynx pink and moist. Excellent tatitlek dentition. Without thyromegaly. Clear bilaterally. Regular rate [...] q6hr for wheezing, 1 EA, Refill(s) 0, [id number], 163, cm, 10/18/21 8:35:00 EDT, Height/Length Dosing, 73, kg, 10/18/21 8:35:00 EDT, Weight Dosing fluconazole, 150 mg = 1 tab(s), Oral, Once, # 1 tab(s), Refills(s) 0, Pharmacy: [facility], 163, cm, 10/18/21 8:35:00 EDT, Height/Length Dosing, 73, kg, 10/18/21 8:35:00 EDT, Weight Dosing Portions of this record may have been created with voice recognition artificial intelligence software, specifically [employer], [employer] and or [employer]. Substitutions may have occurred due to the inherent limitations of voice recognition and artificial intelligence software. Follow-up With When Contact Information Danitza COOK MD, FAM In 1 year Additional Instructions: Patient Education Health Maintenance, Female Problem List/Past Medical History Ongoing BMI 26.0-26.9,adult Encounter for well (more content not included)... Normal [facility] Comment on above: Result Comment: Meeta dayally Signed By: Danitza COOK MD\.br\Date and Time Signed: 09/03/23 19:27 EST Patient [...] in y (more content not included)... Normal [facility] XR foot LT min 3V*on 023 XR foot LT min 3V* [facility] [place] [address] [place] [address] XRay Report Signed Patient: Carmen Marie MR#: [id number] 2 : 2005 Acct:[id number] Age/Sex: 18 / F ADM Date: 08/01/23 Loc: XDUC Room: Type: [facility] Attending Dr: Ella Enamorado FACULTY DEAN Copies to: Ella Enamorado APRN Ordering Provider: [...] Marek Plascencia M.D.08/01/2023 1:00 PM Dictation Location: [place] [address] Transcribed By: [facility] 08/01/23 1300 Dictated By: Marek Plascencia DO 08/01/23 1259 Signed By: 08/01/23 1300 [facility] Group A Strep DNAon 03-05-20 21 Group A Strep DNA Specimen Description .THROAT SWAB Special Requests NOT REPORTED Direct Exam Negative: Specimen negative for Streptococcus pyogenes by DNA amplification. Report Status FINAL 03/05/2021 [facility] Comment on above: Performed By: #### G ASDNA #### [facility] [address] [place] [address] Head Refrigerating Engineer: Lonny Aquino MD [facility] [address] [place] [address] Head Refrigerating Engineer: Can Lala MD [id number] 03-04-2021 SARS-CoV-2 (COVID-19) RNA SKINNY+probe Ql (Unsp spec) Not detected Normal NOTDET [facility] Comment on above: Result Comment: Rapid [...] management decisions. Fact sheet for Healthcare Providers: https://www.fda.gov/media/145792/download Fact sheet for Patients: https://www.fda.gov/media/499880/download Methodology: Isothermal Nucleic Acid Amplification Performed By: #### C OVRB #### [facility] [address] [place] [address] Head Refrigerating Engineer: Can Lala MD COVID-19, RapidOrdered By: Georges Last on 03-03-2021 SARS-CoV-2 (COVID-19) RNA SKINNY+probe Ql (Unsp spec) Not detected Not Detected [employer] [facility] [employer] Phone: Comment on above: Rapid NAAT: The [...] management decisions. Fact sheet for Healthcare Providers: https://www.fda.gov/media/285052/download Fact sheet for Patients: https://www.fda.gov/media/050665/download Methodology: Isothermal Nucleic Acid Amplification Specimen Description .NASOPHARYNGEAL SWAB [facility] Phone: [employer] Phone: Strep Gr A Direct Agon 03-03 Strep Gr A Direct Ag Specimen Descriptio n .THROAT Special Requests NOT REPORTED Direct Exam Rapid Strep A negative. A negative Rapid Group A Strep Screen result does not rule out the possibility of Group A Streptococci in the specimen. The [employer] recommends confirmation testing. Therefore, a Group A Strep DNA test will be performed. Report Status FINAL 03/03/2021 Normal [facility] Comment on above: Performed By: #### S GPA #### [facility] [address] [place] [address] Head Refrigerating Engineer: Can Lala MD Strep Screen Group A ThroatO rdered By: Alejandra Last on 03-03-2021 S. pyogenes Ag IA Ql (Unsp spec) Rapid Strep A negative. A negative Rapid Group A Strep Screen result does not rule out the possibility of Group A Streptococci in the specimen. The [employer] recommends confirmation testing. Therefore, a Group A Strep DNA test will be performed. [employer] Phone: Special Requests NOT REPORTED [employer] Phone: Specimen Description .THROAT [employer] Phone: [facility] Phone: Vital Signs Date Time Vital Sign Value Performing Clinician Facility 09-03-2023 13:19-0500 Blood Pressure Location Danitza COOK [facility] 09-03-2023 13:19-0500 Diastolic blood pressure 70 mm[Hg] Danitza COOK [facility] 09-03-2023 13:19-0500 Heart rate 67 /min Danitza COOK [facility] 09-03-2023 13:19-0500 Respiratory rate 16 /min Danitza COOK [facility] 09-03-2023 13:19-0500 SaO2% (BldA) [Mass fraction] 100 % Danitza COOK [facility] 09-03-2023 13:19-0500 Systolic blood pressure 100 mm[Hg] Danitza COOK [facility] 08-01-2023 14:00-0500 Body height 165.1 cm Ella Enamorado Other [employer] [facility] [employer] Other 08-01-2023 14:00-0500 Body mass index (BMI) [Ratio] 25.79 kg/m2 Ella Enamorado Other [employer] Other 08-01-2023 14:00-0500 Body temperature 99.5 [degF] Ella Enamorado Other [employer] [facility] [employer] Other 08-01-2023 14:00-0500 Body weight 70.31 kg Ella Enamorado Other [employer] Other 08-01-2023 14:00-0500 Respiratory rate 18 /min Ella Enamorado Other [employer] Other 08-01-2023 14:00-0500 SaO2% (BldA) [Mass fraction] 98 % Ella Enamorado Other [employer] Other 03-03-2021 21:26-0400 Body height 165.1 cm Alejandra Last MD Work Phone: [employer] Work Phone: 03-03-2021 21:26-0400 Body mass index (BMI) [Ratio] 27.12 kg/m2 Alejandra Last MD Work Phone: [employer] Work Phone: 03-03-2021 21:26-0400 Body temperature 100.71 [degF] Alejandra Last MD Work Phone: [employer] Work Phone: 03-03-2021 21:26-0400 Body weight 73.94 kg Alejandra Last MD Work Phone: [employer] Work Phone: 03-03-2021 21:26-0400 Diastolic blood pressure 62 mm[Hg] Alejandra Last MD Work Phone: [employer] Work Phone: 03-03-2021 21:26-0400 Heart rate 96 /min Alejandra Last MD Work Phone: [employer] Work Phone: 03-03-2021 21:26-0400 Respiratory rate 16 /min Alejandra Last MD Work Phone: [employer] Work Phone: 03-03-2021 21:26-0400 SaO2% (BldA) [Mass fraction] 98 % Alejandra Last MD Work Phone: [employer] Work Phone: 03-03-2021 21:26-0400 Systolic blood pressure 128 mm[Hg] Alejandra Last MD Work Phone: [facility] Work Phone: Encounters Encounter Date Encounter Type Care Provider Facility Start: 02-01-2024 End: 02-01-2024 ambulatory BRAYDON GIACOMO Not Available Start: 12-31-2023 End: 12-31-2023 ambulatory BRAYDON GIACOMO Not Available Start: 12-03-2023 End: 12-03-2023 ambulatory BRAYDON GIACOMO Not Available Start: 11-05-2023 End: 11-05-2023 ambulatory BRAYDON GIACOMO Not Available Start: 09-03-2023 End: 09-04-2023 ambulatory Danitza COOK Facility:[facility] Start: 09-03-2023 End: 09-03-2023 Encounter for general adult medical examination with abnormal findings [facility] Start: 09-03-2023 End: 09-03-2023 Patient encounter [facility] Start: 08-01-2023 End: 08-01-2023 ambulatory Ella Enamorado Facility:[facility] Start: 08-01-2023 Office outpatient ne w 20 minutes Ella Enamorado [facility] Start: 08-01-2023 End: 08-01-2023 ambulatory FACULTY DEANAngel Enamorado Work Phone: [facility] Work Phone: Start: 08-01-2023 End: 08-01-2023 Patient encounter procedure AUSTIN Enamorado Work Phone: [facility] Work Phone: Start: 03-03-2021 End: 03-04-2021 Emergency department patient visit ALEJANDRA LAST [facility] Start: 03-03-2021 End: 03-03-2021 Emergency department patient visit Alejandra Last MD Work Phone: [facility] Comment on above: Acute pharyngitis, u nspecified etiology (Primary Dx); Acute viral syndrome Procedures Date Procedure Procedure Detail Performing Clinician Start: 08-01-2023 X-ray of left foot FACULTY DEAN Ella Enamorado Work Phone: Start: 03-03-2021 COVID-19, RAPID Alejandra Last MD Work Phone: Start: 03-03-2021 Iaadiadoo streptococ cus group a Alejandra Last MD Work Phone: Tonsillectomy and adenoidectomy Danitza COOK Plan of Treatment Date Care Activity Detail Author Start: 04-03-2021 Influenza vaccination Flu vaccine (# 1) [facility] Phone: Start: 2019 Meningococcal (ACWY) vaccine (1 - 2-dose series) Meningococcal (ACWY) vaccine (1 - 2-dose series) [facility] Phone: Start: 2019 Screening for Chlamy rika trachomatis Chlamydia screen [facility] Phone: Start: 2018 HIV screening HIV screen [facility] Work Phone: Start: 2015 COVID-19 Vaccine (1) COVID-19 Vaccin e (1) [facility] [employer] Phone: Start: 2014 HPV vaccine (1 - 2-d ose series) HPV vaccine (1 - 2-dose series) [facility] Phone: Start: 2010 DTaP/Tdap/Td vaccine (1 - Tdap) DTaP/Tdap/Td vaccine (1 - Tdap) [employer] Phone: Start: 2004 Hepatitis A vaccine (1 of 2 - 2-dose series) Hepatitis A vaccine (1 of 2 - 2-dose series) [employer] Phone: Start: 2004 Measles,Mumps,Rubell a (MMR) vaccine (1 of 2 - Standard series) Measles,Mumps,Rubella (MMR) vaccine (1 of 2 - Standard series) [employer] Phone: Start: 2004 Varicella vaccine (1 of 2 - 2-dose childhood series) Varicella vaccine (1 of 2 - 2-dose childhood series) [employer] Phone: Start: 2003 Polio vaccine (1 of 3 - 4-dose series) Polio vaccine (1 of 3 - 4-dose series) [employer] Phone: Start: 2003 Hepatitis B vaccine (1 of 3 - 3-dose primary series) Hepatitis B vaccine (1 of 3 - 3-dose primary series) [employer] Phone: End: 03-03-2021 Strep A DNA probe, amplification Strep A DNA probe, amplification Lab Routine Once for 1 Occurrences starting 03/03/2021 until 03/03/2021 [employer] Phone: Comment on above: Once for 1 Occurrenc es starting 03/03/2021 until 03/03/2021 Strep A DNA probe, amplification Strep A DNA probe, amplification Lab Routine 03/03/2021 9:46 PM EDT [employer] Phone: Immunizations Immunization Date Immunization Notes Care Provider Pierre tsang 08-07-2021 SARS-CoV-2 (COVID-19 ) Ad26 vaccine, recombinant Danitza COOK [facility] 01-08-2021 SARS-CoV-2 (COVID-19 ) mRNA BNT-162b2 [employer] [facility] Comment on above: Result Comment: alysa @ /w 12-18-2020 SARS-CoV-2 (COVID-19 ) mRNA BNT-162b2 vax [employer] [facility] Comment on above: Result Comment: alysa @ ra/w 02-24-2020 meningococcal polysaccharide (groups A, C, Y and W-135) diphtheria toxoid conjugate vaccine (MCV4P) [employer] [facility] 09-11-2016 HPV, unspecified formulation [employer] [facility] 05-12-2016 HPV, unspecified formulation [employer] [facility] 03-11-2016 diphtheria, tetanus toxoids and acellular pertussis vaccine [employer] [facility] 03-11-2016 HPV, unspecified formulation [employer] [facility] 03-11-2016 meningococcal ACWY vaccine, unspecified formulation [employer] [facility] 01-02-2009 Diphtheria, tetanus toxoids and acellular pertussis vaccine, and poliovirus vaccine, inactivated [employer] [facility] 01-02-2009 varicella virus vaccine [employer] [facility] 10-31-2005 measles, mumps and rubella virus vaccine [employer] [facility] 08-12-2004 diphtheria, tetanus toxoids and acellular pertussis vaccine [facility] [facility]-12[facility]2004 varicella virus vaccine Y[employer]i [employer] [facility]-14-2004 haemophilus influenz ae type b vaccine, PRP-T conjugate [employer] [facility]-10-2004 measles, mumps and rubella virus vaccine Danitza COOK [facility] 2003 DTaP-hepatitis B and poliovirus vaccine Danitza COOK [facility] 2003 haemophilus influenz ae type b vaccine, PRP-T conjugate Danitza [employer] [facility] 2003 diphtheria, tetanus toxoids and acellular pertussis vaccine Danitza COOK [facility] 2003 haemophilus influenz ae type b vaccine, PRP-T conjugate Danitza [employer] [facility] 2003 poliovirus vaccine, unspecified formulation Danitza [employer] [facility] 2003 DTaP-hepatitis B and poliovirus vaccine Danitza COOK [facility] 2003 haemophilus influenz ae type b vaccine, PRP-T conjugate [employer] [facility] 2003 hepatitis B vaccine, pediatric or pediatric/adolescent dosage [facility]za [facility]OOK [facility] NEGATED: Highlighted row has not occurred!09-03-2023 influenza virus vaccine, unspecified formulation Danitza COOK [facility] NEGATED: Highlighted row has not occurred!10-18-2021 influenza virus vaccine, unspecified formulation [employer] [facility] NEGATED: Highlighted row has not occurred!02-24-2020 influenza virus vaccine, unspecified formulation Danitza [employer] [facility] Payers Date Payer Category Payer Self-pay 2023 Unknown [id number] 2019 Unknown [id number] 2018 Unknown [id number] 2003 Unknown [id number] [id number] 2003 Unknown [id number] 2.16.84 [id number] 2003 Unknown [id number] 2.16.84 [id number] 2003 Unknown [id number] 2.16.84 [id number] 2003 Unknown [id number] 2.16.84 [id number] 1982 Unknown [id number] 2.16.84 [id number] Unknown [id number] 2.16.8 [id number] Social History Date Type Detail Facility Start: 03-03-2021 End: 09-03-2023 Tobacco smoking status [facility] Never smoker [facility] Start: 03-03-2021 Tobacco use and exposure Never used [employer] Start: 03-03-2021 Alcohol intake Lifetime non-d matti (finding) [employer] Work Phone: Start: 03-03-2021 History SDOH Alcohol Frequency 1 [employer] Work Phone: Start: 2005 Sex Assigned At Not on file M [employer] Work Phone: Exposure to SARS-CoV -2 (event) Not sure [employer] Start: 2005 Sex Assigned At Female F [facility] Sex Assigned At [facility] Tobacco smoking status Never [facility] [place] Functional Status Date Assessment Result Facility 09-03-2023 Functional Status N/A [facility] Evaluation + Plan note 09-03-2023 Note Date & Type Note Facility 09-03-2023 Evaluation + Plan note Diagnostic Tests PendingCBC w/ Auto Diff 09/03/23Basic Metabolic Panel 09/03/23TSH With T4fr Reflex 09/03/23 [facility] Hospital Discharge instructions 09-02-2023 Note [...] alcohol is in your drink. In the [place] one drink equals one 12 oz bottle [...] provider. Document Revised: 12/09/2021 Document Reviewed: 12/09/2021 [employer] Patient Education 2022 [employer]. Follow Up Care 07/23/2023 13:12:42 With:Danitza COOK MD, FAM Address: When:Within 1 Year(s) [facility] [place] Evaluation note 08-01-2023 Note Date & Type [...] understanding and is agreeable to treatment plan. [employer] Other Evaluation note Note Date & Type Note Facility Evaluation note Diagnosis Acute pharyngitis, unspecified etiology- Primary Acute viral syndrome documented in this encounter [employer] Phone: Evaluation note Note Date & Type Note Facility Evaluation note No assessment information availa [facility] Work Phone: Hospital course Narrative Note Date & Type Note Facility Hospital course Narrative No data available for this section [facility] [employer] Hospital Discharge instructions Attachments Note Date & Type Note Facility Hospital Discharge instructions The following attachments cannot be sent through Care Everywhere.Viral Infections: Teen (Chadian)Sore Throat: Teen ([place])documented in this encounter [employer] Phone: Progress note Note Date & Type Note Facility Progress note No data available for this section [facility] [employer] Advance Directives No Advanced Directives Records FoundDocuments on File Type Date Recorded 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 Summary Purpose Family History No Family History Records FoundNo Family History Records Found No data available for this section No Family History Records FoundNo Family History Records Found Additional Source Comments Reason for Visit (unrecogniz ed section and content) Reason Comments URI Patient arrives to E [facility] today with complaints of headaches, sore throat, [...] DATE CREATED AUTHOR AUTHOR'S ORGANIZ ATION 08/06/2023 [facility] DATE CREATED AUTHOR AUTHOR'S ORGANIZ ATION 10/09/2023 [facility] DATE CREATED AUTHOR AUTHOR'S ORGANIZ ATION 02/02/2024 [facility] EPIC Care Teams (unrecognized [...] BE BASED ON THE PRIMARY CLINICAL RECORDS. [employer] provides no warranty or guarantee of the accuracy or completeness of information in this document.
== END 2024-02-18 09:12 | disposition home or self-care (01) ==
LOC: NOMS 09:11
PROVIDERS: Family Provider Family Medicine; PCP Family Medicine; Visit Provider Obstetrics & Gynecology
DX: Z36.2 Encounter for other antenatal screening follow-up (principal); Z3A.24 24 weeks gestation of pregnancy
CPT/HCPCS: 76815

== ENCOUNTER 2024-02-19 13:39 | Outpatient (OUT) | payer BC, OTHER, SELFPAY ==
[2024-02-19 15:15] LABS: Basophils Percent Auto 0.4 % (0.2-2.0); Eosinophils Absolute Auto 0.1 10^3/uL (0.0-0.7); Eosinophils Percent Auto 1.4 % (0.9-7.0); Hematocrit 32.6 % (36.0-48.0); Hemoglobin 10.1 g/dL (12.0-16.0); Immature Granulocytes Abs Auto 0.24 10^3/uL (0.00-0.03); Immature Granulocytes Pct Auto 2.6 % (0.0-0.5); Lymphocytes Absolute Auto 1.9 10^3/uL (1.2-3.8); Mean Corpuscular Hemoglobin 25.9 pg (26.7-34.0); Mean Corpuscular Volume 83.6 fL (81.0-99.0); Mean Platelet Volume 9.9 fL (9.5-13.5); Neutrophils Absolute Auto 6.1 10^3/uL (1.4-6.5); Neutrophils Percent Auto 64.6 % (43.0-75.0); Platelet Count 282 10^3/uL (150-450); Red Cell Distribution Width 12.6 % (11.0-15.0); White Blood Count 9.4 10^3/uL (4.0-11.0)
[2024-02-19 15:25] LABS: Glucose 1 Hour 76 mg/dL (<130)
== END 2024-02-19 13:40 | disposition home or self-care (01) ==
LOC: LAB 13:46
PROVIDERS: Family Provider Family Medicine; PCP Family Medicine; Visit Provider Obstetrics & Gynecology
DX: Z13.1 Encounter for screening for diabetes mellitus (principal)
CPT/HCPCS: 36415; 82950; 85025

== ENCOUNTER 2024-04-07 14:36 | Outpatient (OUT) | payer OTHER, MEDICAID, SELFPAY ==
--- NOTE | 2024-04-07 | US_ITS ---
[address] [address] Patient Name: ISIAH MARIE MRN: [id number] date: 2005 Sex: F Assigned Patient Location: [facility] Current Patient Location: Accession/Order Number: [id number] Exam Date: 04/07/2024 14:38 Report Date: 04/08/2024 04:19 At the request of: BRAYDON GOODEN Procedure: US OB growth EXAMINATION: US OB growth HISTORY: ANEMIA IN COMPARISON: Ultrasound OB anatomy 01/18/2024 FINDINGS: Heart Rate: 141 bpm Amniotic Fluid Volume: 16.8 cm; normal range Number: 1 Position: CEPHALIC BIOMETRY: BPD: 8.05 cm; 32 weeks 2 days; 55.40 % HC: 31.64 cm; 35 weeks 4 days; 95.20 % AC: 28.57 cm; 32 weeks 4 days; 70.20 % FL: 6.17 cm; 32 weeks 0 days; 40.50 % EFW: 1962.32 g; 66.50 % FL/AC: 21.60 FL/BPD: 76.65 HC/AC: 1.11 GESTATIONAL AGE: Age by EDC: 31 weeks 6 days LOUIE by EDC: 2024-06-03 Age by US: 33 weeks 1 day LOUIE by US: 2024-05-25 US/US OB growth IMPRESSION: 1. Single live intrauterine with growth detailed above. Electronically authenticated by: LUPILLO CARDONA Date: 04/08/2024 04:19
--- OUTSIDE RECORDS SUMMARY | 2024-04-07 14:47 | XMS_ITS | CCD ---
Author Organization [facility] Care Team Providers Care Newborn Photographer Name Role Phone Danitza Cook MD Primary Care Provider ALEJANDRA CONTRERAS Attending Unavailable DANITZA COOK Primary Care Unavailable AUSTIN Enamorado Attending Provider [phone] Ella Enamorado Attending Unavailable Ella Enamorado Admitting Unavailable NO FAMILY, PHYSICIAN Primary Care Unavailable Ella Enamorado Unavailable Danitza COOK Primary Care Physician Danitza COOK Attending Unavailable BRAYDON GOODEN Attending Unavailable BRAYDON GOODEN Attending Unavailable BRAYDON GOODEN Attending Unavailable GENEVIEVE AWAN Attending Unavailable BRAYDON GOODEN Attending Unavailable Medications [...] Summaryon 0 09-03-2023 Ambulatory Visit Summary CARMEN PRICE Mendoza :2005 Visit Date:09/03/2023 Ambulatory Visit Instructions [...] transmitted infections (more content not included)... Normal [facility] Medicine Office/Clini c Noteon 09-03-2023 Family Medicine Office/Clinic Note Chief Complaint annual chk up, not fasting, no rfs History of Present Illness This is a 18-year-old female here for annual checkup. She is on oral contraceptive prescribed by Bee Watson BEHAVIORAL HEALTH ASSISTANT She is up-to-date with her exams. Her [...] . She has a late lunch at [employer]. Usually something caffeinated as well as a [...] are clear. Oropharynx pink and moist. Excellent quinault dentition. Without thyromegaly. Clear bilaterally. Regular rate [...] Once, # 1 tab(s), Refills(s) 0, Pharmacy: [facility]4 [facility], 163, cm, 10/18/21 8:35:00 EDT, Height/Length Dosing, 73, kg, 10/18/21 8:35:00 EDT, Weight Dosing Portions of this record may have been created with voice recognition artificial intelligence software, specifically [employer], [employer] and or [employer]. Substitutions may have occurred due to the inherent limitations of voice recognition and artificial intelligence software. Follow-up With When Contact Information Danitza COOK MD, FAM In 1 year Additional Instructions: Patient Education Health Maintenance, Female Problem List/Past Medical History Ongoing BMI 26.0-26.9,adult Encounter for well (more content not included)... Normal [facility] Comment on above: Result Comment: Elec tronically Signed By: Danitza COOK MD\.br\Date and Time Signed: 09/03/23 19:27 EST Patient Educationon 09-02-19 Patient Education Obstetrics and Gynecology Health Maintenance, [...] in y (more content not included)... Normal [facility] XR foot LT min 3V*on 023 XR foot LT min 3V* [facility] [place] [address] [place] [address] XRay Report Signed Patient: Carmen Price MR#: [id number] 2 : 2005 Acct:[id number] Age/Sex: 18 / F ADM Date: 08/01/23 Loc: [facility] Room: Type: [facility] Attending Dr: Ella Enamorado BRIDGE MAINTAINER Copies to: Ella Enamorado APRN Ordering Provider: [...] Marek Plascencia M.D.08/01/2023 1:00 PM Dictation Location: [place] [address] Transcribed By: [facility] 08/01/23 1300 Dictated By: Marek Plascencia DO 08/01/23 1259 Signed By: 08/01/[address] [facility] Group A Strep DNAon 03-05-20 21 Group A Strep DNA Specimen Description .THROAT SWAB Special Requests NOT REPORTED Direct Exam Negative: Specimen negative for Streptococcus pyogenes by DNA amplification. Report Status FINAL 03/05/2021 [facility] Comment on above: Performed By: #### G ASDNA #### [facility] [address] [place] [address] Manager Acute: Lonny Aquino MD [facility] [address] [place] [address] Manager Acute: Can Lala MD [id number] 03-04-2021 SARS-CoV-2 (COVID-19) RNA SKINNY+probe Ql (Unsp spec) Not detected Normal NOTDET [facility] Comment on above: Result Comment: Rapid NAAT: [...] management decisions. Fact sheet for Healthcare Providers: https://www.fda.gov/media/190631/download Fact sheet for Patients: https://www.fda.gov/media/732327/download Methodology: Isothermal Nucleic Acid Amplification Performed By: #### C OVRB #### [facility] [address] [place] [address] Manager Acute: Can Lala MD COVID-19, RapidOrdered By: Georges Contreras on 03-03-2021 SARS-CoV-2 (COVID-19) RNA SKINNY+probe Ql (Unsp spec) Not detected Not Detected [facility] Work Phone: Comment on above: Rapid NAAT: The [...] management decisions. Fact sheet for Healthcare Providers: https://www.fda.gov/media/603538/download Fact sheet for Patients: https://www.fda.gov/media/334118/download Methodology: Isothermal Nucleic Acid Amplification Specimen Description .NASOPHARYNGEAL SWAB [facility] Phone: [facility] Phone: Strep Gr A Direct Agon 03-03 Strep Gr A Direct Ag Specimen Descriptio n .THROAT Special Requests NOT REPORTED Direct Exam Rapid Strep A negative. A negative Rapid Group A Strep Screen result does not rule out the possibility of Group A Streptococci in the specimen. The [place] [employer] recommends confirmation testing. Therefore, a Group A Strep DNA test will be performed. Report Status FINAL 03/03/2021 Normal [facility] Comment on above: Performed By: #### S GPA #### [facility] [address] [place] [address] Manager Acute: Can Lala MD Strep Screen Group A ThroatO rdered By: Alejandra Contreras on 03-03-2021 S. pyogenes Ag IA Ql (Unsp spec) Rapid Strep A negative. A negative Rapid Group A Strep Screen result does not rule out the possibility of Group A Streptococci in the specimen. The [place] [employer] recommends confirmation testing. Therefore, a Group A Strep DNA test will be performed. [facility] Phone: Special Requests NOT REPORTED [facility] Phone: Specimen Description .THROAT [facility] Phone: [facility] Phone: Vital Signs Date Time Vital Sign Value Performing Clinician Facility 09-03-2023 13:19-0500 Blood Pressure Location Danitza COOK [facility] 09-03-2023 13:19-0500 Diastolic blood pressure 70 mm[Hg] Danitza COOK [facility] 09-03-2023 13:19-0500 Heart rate 67 /min Danitza COOK [facility] 09-03-2023 13:19-0500 Respiratory rate 16 /min Danitza COOK [facility] 09-03-2023 13:19-0500 SaO2% (BldA) [Mass fraction] 100 % Danitza COOK [facility] 09-03-2023 13:19-0500 Systolic blood pressure 100 mm[Hg] Danitza COOK [facility] 08-01-2023 14:00-0500 Body height 165.1 cm Ella Enamorado Other [facility] Other 08-01-2023 14:00-0500 Body mass index (BMI) [Ratio] 25.79 kg/m2 Ella Enamorado Other [facility] Other 08-01-2023 14:00-0500 Body temperature 99.5 [degF] Ella Enamorado Other [facility] Other 08-01-2023 14:00-0500 Body weight 70.31 kg Ella Enamorado Other [facility] Other 08-01-2023 14:00-0500 Respiratory rate 18 /min Ella Enamorado Other [facility] Other 08-01-2023 14:00-0500 SaO2% (BldA) [Mass fraction] 98 % Ella Enamorado Other [facility] [employer] Other 03-03-2021 21:26-0400 Body height 165.1 cm Alejandra Contreras MD Work Phone: [facility] Work Phone: 03-03-2021 21:26-0400 Body mass index (BMI) [Ratio] 27.12 kg/m2 Alejandra Contreras MD Work Phone: [facility] Work Phone: 03-03-2021 21:26-0400 Body temperature 100.71 [degF] Alejandra Contreras MD Work Phone: [facility] Work Phone: 03-03-2021 21:26-0400 Body weight 73.94 kg Alejandra Contreras MD Work Phone: [facility] Work Phone: 03-03-2021 21:26-0400 Diastolic blood pressure 62 mm[Hg] Alejandra Contreras MD Work Phone: [facility] Work Phone: 03-03-2021 21:26-0400 Heart rate 96 /min Alejandra Contreras MD Work Phone: [facility] Work Phone: 03-03-2021 21:26-0400 Respiratory rate 16 /min Alejandra Contreras MD Work Phone: [facility] Work Phone: 03-03-2021 21:26-0400 SaO2% (BldA) [Mass fraction] 98 % Alejandra Contreras MD Work Phone: [facility] Work Phone: 03-03-2021 21:26-0400 Systolic blood pressure 128 mm[Hg] Alejandra Contreras MD Work Phone: [facility] Work Phone: Encounters Encounter Date Encounter Type Care Provider Facility Start: 03-21-2024 End: 03-21-2024 ambulatory BRAYDON GIACOMO Not Available Start: 03-03-2024 End: 03-03-2024 ambulatory GENEVIEVE AWAN Not Available Start: 02-01-2024 End: 02-01-2024 ambulatory BRAYDON GIACOMO Not Available Start: 12-31-2023 End: 12-31-2023 ambulatory BRAYDON GIACOMO Not Available Start: 12-03-2023 End: 12-03-2023 ambulatory BRAYDON GIACOMO Not Available Start: 11-05-2023 End: 11-05-2023 ambulatory BRAYDON GIACOMO Not Available Start: 09-03-2023 End: 09-04-2023 ambulatory Danitza COOK Facility:[facility] Start: 09-03-2023 End: 09-03-2023 Encounter for general adult medical examination with [facility] Start: 09-03-2023 End: 09-03-2023 [facility] Start: 08-01-2023 End: 08-01-2023 ambulatory Ella Enamorado Facility:[facility] Start: 08-01-2023 Office outpatient ne w 20 minutes Ella Enamorado [facility] Start: 08-01-2023 End: 08-01-2023 ambulatory BRIDGE MAINTAINER Ella Enamorado Work Phone: [facility] Work Phone: Start: 08-01-2023 End: 08-01-2023 Patient encounter procedure AUSTIN Enamorado Work Phone: [facility] Work Phone: Start: 03-03-2021 End: 03-04-2021 Emergency department patient visit ALEJANDRA CONTRERAS [facility] Start: 03-03-2021 End: 03-03-2021 Emergency department patient visit Alejandra Contreras MD Work Phone: [facility] ED Comment on above: Acute pharyngitis, u nspecified etiology (Primary Dx); Acute viral syndrome Procedures Date Procedure Procedure Detail Performing Clinician Start: 08-01-2023 X-ray of left foot BRIDGE MAINTAINER Ella Munozhn Work Phone: Start: 03-03-2021 COVID-19, RAPID Alejandra Contreras MD Work Phone: Start: 03-03-2021 Iaadiadoo streptococ cus group a Alejandra Contreras MD Work Phone: Tonsillectomy and adenoidectomy Danitza COOK Plan of Treatment Date Care Activity Detail Author Start: 04-03-2021 Influenza vaccination Flu vaccine (# 1) [facility] Phone: Start: 2019 Meningococcal (ACWY) vaccine (1 - 2-dose series) Meningococcal (ACWY) vaccine (1 - 2-dose series) [facility] Phone: Start: 2019 Screening for Chlamy rika trachomatis Chlamydia screen [facility] Phone: Start: 2018 HIV screening HIV screen [facility] Work Phone: Start: 2015 COVID-19 Vaccine (1) COVID-19 Vaccin e (1) [facility] Phone: Start: 2014 HPV vaccine (1 - 2-d ose series) HPV vaccine (1 - 2-dose series) [facility] Phone: Start: 2010 DTaP/Tdap/Td vaccine (1 - Tdap) DTaP/Tdap/Td vaccine (1 - Tdap) [facility] Phone: Start: 2004 Hepatitis A vaccine (1 of 2 - 2-dose series) Hepatitis A vaccine (1 of 2 - 2-dose series) [facility] Phone: Start: 2004 Measles,Mumps,Rubell a (MMR) vaccine (1 of 2 - Standard series) Measles,Mumps,Rubella (MMR) vaccine (1 of 2 - Standard series) [facility] Phone: Start: 2004 Varicella vaccine (1 of 2 - 2-dose childhood series) Varicella vaccine (1 of 2 - 2-dose childhood series) [facility] Phone: Start: 2003 Polio vaccine (1 of 3 - 4-dose series) Polio vaccine (1 of 3 - 4-dose series) [facility] Phone: Start: 2003 Hepatitis B vaccine (1 of 3 - 3-dose primary series) Hepatitis B vaccine (1 of 3 - 3-dose primary series) [facility] Phone: End: 03-03-2021 Strep A DNA probe, amplification Strep A DNA probe, amplification Lab Routine Once for 1 Occurrences starting 03/03/2021 until 03/03/2021 [facility] Phone: Comment on above: Once for 1 Occurrenc es starting 03/03/2021 until 03/03/2021 Strep A DNA probe, amplification Strep A DNA probe, amplification Lab Routine 03/03/2021 9:46 PM EDT [facility] Phone: Immunizations Immunization Date Immunization Notes Care Provider Fa cility 08-07-2021 SARS-CoV-2 (COVID-19 ) Ad26 vaccine, recombinant Danitza COOK [facility] [place] 01-08-2021 SARS-CoV-2 (COVID-19 ) mRNA BNT-162b2 vax Danitza COOK [facility] [place] Comment on above: Result Comment: alysa @ /w 12-18-2020 SARS-CoV-2 (COVID-19 ) mRNA BNT-162b2 vax [employer] [facility] Comment on above: Result Comment: sharidalia @ / 02-24-2020 meningococcal polysaccharide (groups A, C, Y and W-135) diphtheria toxoid conjugate vaccine (MCV4P) [employer] [facility] 09-11-2016 HPV, unspecified formulation [employer] [facility] 05-12-2016 HPV, unspecified formulation [facility] [employer] [facility] 03-11-2016 diphtheria, tetanus toxoids and acellular pertussis vaccine [employer] [facility] 03-11-2016 HPV, unspecified formulation [facility] [employer] [facility] 03-11-2016 meningococcal ACWY vaccine, unspecified formulation [employer] [facility] 01-02-2009 Diphtheria, tetanus toxoids and acellular pertussis vaccine, and poliovirus vaccine, inactivated [employer] [facility] 01-02-2009 varicella virus vaccine [employer] [facility] 10-31-2005 measles, mumps and rubella virus vaccine [employer] [facility] 08-12-2004 diphtheria, tetanus toxoids and acellular pertussis vaccine [employer] [facility] 08-12-2004 varicella virus vaccine [employer] [facility] 05-14-2004 haemophilus influenz ae type b vaccine, PRP-T conjugate [employer] [facility] 05-10-2004 measles, mumps and rubella virus vaccine [employer] [facility] 2003 DTaP-hepatitis B and poliovirus vaccine [employer] [facility] 2003 haemophilus influenz ae type b vaccine, PRP-T conjugate [employer] [facility] 2003 diphtheria, tetanus toxoids and acellular pertussis vaccine [employer] [facility] 2003 haemophilus influenz ae type b vaccine, PRP-T conjugate [employer] [facility] 2003 poliovirus vaccine, unspecified formulation [employer] [facility] 2003 DTaP-hepatitis B and poliovirus vaccine [employer] [facility] 2003 haemophilus influenz ae type b vaccine, PRP-T conjugate [employer] [facility] 2003 hepatitis B vaccine, pediatric or pediatric/adolescent dosage [employer] [facility] NEGATED: Highlighted row has not occurred!09-03-2023 influenza virus vaccine, unspecified formulation [facility] [employer] [facility] NEGATED: Highlighted row has not occurred!10-18-2021 influenza virus vaccine, unspecified formulation [employer] [facility] [place] NEGATED: Highlighted row has not occurred!02-24-2020 influenza virus vaccine, unspecified formulation Danitza COOK [facility] [place] Payers Date Payer Category Payer Medicaid [id number] 2023 Unknown [id number] 2023 Self-pay 2023 Unknown [id number] 2019 Unknown [id number] 2018 Unknown [id number]. [id number] 2003 Unknown [id number] 2.16.8 [id number] 2003 Unknown [id number] 2.16.84 [id number] 2003 Unknown [id number] 2.16.84 [id number] 2003 Unknown [id number] 2.16.84 [id number] 2003 Unknown [id number] 2.16.84 [id number] 2003 Unknown [id number] 2.16.84 [id number] 2003 Unknown [id number] 2.16.84 [id number] 1982 Unknown [id number] 2.16.84 [id number] Unknown [id number] 2.16.8 [id number] Social History Date Type Detail Facility Start: 03-03-2021 End: 09-03-2023 Tobacco smoking status NHIS Never smoker [facility] [place] Start: 03-03-2021 Tobacco use and exposure Never used [employer] Start: 03-03-2021 Alcohol intake Lifetime non-d matti (finding) [facility] Phone: Start: 03-03-2021 History SDOH Alcohol Frequency 1 [facility] Phone: Start: 2005 Sex Assigned At Not on file M Make YES! [employer]en Work Phone: Exposure to SARS-CoV -2 (event) Not sure [facility] Start: 2005 Sex Assigned At Female F [facility] Sex Assigned At [facility] Tobacco smoking status Never [facility] Functional Status Date Assessment Result Facility 09-03-2023 Functional Status N/A [facility] [place] Evaluation + Plan note 09-03-2023 Note Date & Type Note Facility 09-03-2023 Evaluation + Plan note Diagnostic Tests PendingCBC w/ Auto Diff 09/03/23Basic Metabolic Panel 09/03/23TSH With T4fr Reflex 09/03/23 [facility] Hospital Discharge instructions 09-02-2023 Note Date & [...] provider. Document Revised: 12/09/2021 Document Reviewed: 12/09/2021 [employer] Patient Education 2022 [employer]. Follow Up Care 07/23/2023 13:12:42 With:Danitza COOK MD, FAM Address: When:Within 1 Year(s) [facility] Evaluation note 08-01-2023 Note Date & Type [...] understanding and is agreeable to treatment plan. [facility] Other Evaluation note Note Date & Type Note Facility Evaluation note Diagnosis Acute pharyngitis, unspecified etiology- Primary Acute viral syndrome documented in this encounter [facility] Phone: Evaluation note Note Date & Type Note Facility Evaluation note No assessment information [facility] Work Phone: Hospital course Narrative Note Date & Type Note Facility Hospital course Narrative No data available for this section [facility] Hospital Discharge instructions Attachments Note Date & Type Note Facility Hospital Discharge instructions The following attachments cannot be sent through Care Everywhere.Viral Infections: Teen (Kyrgyz)Sore Throat: Teen (Kyrgyz)documented in this encounter [facility] Work Phone: Progress note Note Date & Type Note Facility Progress note No data available for this section [facility] [employer] Advance Directives No Advanced Directives Records FoundDocuments on File Type Date Recorded 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 DATE CREATED AUTHOR AUTHOR'S ORGANIZ ATION 10/09/2023 [facility] DATE CREATED AUTHOR AUTHOR'S ORGANIZ ATION 03/21/2024 [facility] EPIC Care Teams (unrecognized sec [...] BE BASED ON THE PRIMARY CLINICAL RECORDS. [employer] provides no warranty or guarantee of the accuracy or completeness of information in this document.
== END 2024-04-07 14:37 | disposition home or self-care (01) ==
LOC: NOMS 14:36
PROVIDERS: Family Provider Family Medicine; PCP Family Medicine; Visit Provider Obstetrics & Gynecology
DX: O99.012 Anemia complicating pregnancy, second trimester (principal); O26.849 Uterine size-date discrepancy, unspecified trimester; Z3A.33 33 weeks gestation of pregnancy
CPT/HCPCS: 76816

== ENCOUNTER 2024-05-05 07:58 | Outpatient (OUT) | payer OTHER, MEDICAID, SELFPAY ==
--- OUTSIDE RECORDS SUMMARY | 2024-05-05 08:01 | XMS_ITS | CCD ---
Author Organization [facility] Care Team Providers Care Body Straightener Name Role Phone Danitza Cook MD Primary Care Provider ALEJANDRA CONTRERAS Attending Unavailable DANITZA COOK Primary Care Unavailable AUSTIN Enamorado Attending Provider [phone] Ella Enamorado Attending Unavailable Ella Enamorado Admitting Unavailable NO FAMILY, PHYSICIAN Primary Care Unavailable Ella Enamorado Unavailable Danitza COOK Primary Care Physician Danitza COOK Attending Unavailable BRAYDON GOODEN Attending Unavailable BRAYDON GOODEN Attending Unavailable BRAYDON GOODEN Attending Unavailable GENEVIEVE AWAN Attending Unavailable BRAYDON GOODEN Attending Unavailable GENEVIEVE [...] transmitted infections (more content not included)... Normal [facility] Family Medicine Office/Clini c Noteon 09-03-2023 Family Medicine Office/Clinic Note Chief Complaint annual chk up, not fasting, no rfs History of Present Illness This is a 18-year-old female here for annual checkup. She is on oral contraceptive prescribed by Bee Watson ROBOTIC TECHNICIAN She is up-to-date with her exams. Her [...] . She has a late lunch at [facility]. Usually something caffeinated as well as a [...] are clear. Oropharynx pink and moist. Excellent big lagoon dentition. Without thyromegaly. Clear bilaterally. Regular rate [...] 1 tab(s), Refills(s) 0, Pharmacy: [facility], 163, cm, 10/18/21 8:35:00 EDT, Height/Length Dosing, 73, kg, 10/18/21 8:35:00 EDT, Weight Dosing Portions of this record may have been created with voice recognition artificial intelligence software, specifically [employer], [employer] and or [employer]. Substitutions may have occurred due to the inherent limitations of voice recognition and artificial intelligence software. Follow-up With When Contact Information Danitza COOK MD, FAM In 1 year Additional Instructions: Patient Education Health Maintenance, Female Problem List/Past Medical History Ongoing BMI 26.0-26.9,adult Encounter for well (more content not included)... Normal [facility] Comment on above: Result Comment: Elec [...] in y (more content not included)... Normal [facility] XR foot LT min 3V*on 023 XR foot LT min 3V* [facility] Main [place] [address] [place] [address] XRay Report Signed Patient: Carmen Price MR#: [id number] 2 : 2005 Acct:[id number] Age/Sex: 18 / F ADM Date: 08/01/23 Loc: [facility] Room: Type: [facility] Attending Dr: Ella Enamorado [employer] Copies to: Ella Enamorado APRN Ordering Provider: [...] Marek Plascencia M.D.08/01/2023 1:00 PM Dictation Location: [place] [address] Transcribed By: [facility] 08/01/23 1300 Dictated By: Marek Plascencia DO 08/01/23 1259 Signed By: 08/01/23 1300 [facility] Group A Strep DNAon 03-05-20 21 Group A Strep DNA Specimen Description .THROAT SWAB Special Requests NOT REPORTED Direct Exam Negative: Specimen negative for Streptococcus pyogenes by DNA amplification. Report Status FINAL 03/05/2021 [facility] Comment on above: Performed By: #### G ASDNA #### [facility] [address], [place] [id number] Manager Car: Lonny Aquino MD [facility] [address] [place] [address] Manager Car: Can Lala MD [id number] 03-04-2021 SARS-CoV-2 (COVID-19) RNA SKINNY+probe Ql (Unsp spec) Not detected Normal NOTDET [facility] Comment on above: Result Comment: Rapid [...] management decisions. Fact sheet for Healthcare Providers: https://www.fda.gov/media/772366/download Fact sheet for Patients: https://www.fda.gov/media/997378/download Methodology: Isothermal Nucleic Acid Amplification Performed By: #### C OVRB #### [facility] [address] [place] [address] Manager Car: Can Lala MD COVID-19, RapidOrdered By: Georges Contreras on 03-03-2021 SARS-CoV-2 (COVID-19) RNA SKINNY+probe Ql (Unsp spec) Not detected Not Detected [facility] [employer] Phone: Comment on above: Rapid NAAT: The [...] management decisions. Fact sheet for Healthcare Providers: https://www.fda.gov/media/791607/download Fact sheet for Patients: https://www.fda.gov/media/104396/download Methodology: Isothermal Nucleic Acid Amplification Specimen Description .NASOPHARYNGEAL SWAB [employer] Phone: [employer] Phone: Strep Gr A Direct Agon 03-03 Strep Gr A Direct Ag Specimen Descriptio n .THROAT Special Requests NOT REPORTED Direct Exam Rapid Strep A negative. A negative Rapid Group A Strep Screen result does not rule out the possibility of Group A Streptococci in the specimen. The [place] [employer] recommends confirmation testing. Therefore, a Group A Strep DNA test will be performed. Report Status FINAL 03/03/2021 Normal [facility] Comment on above: Performed By: #### S GPA #### [facility] [address] [place] [address] Manager Car: Can Lala MD Strep Screen Group A ThroatO rdered By: Alejandra Contreras on 03-03-2021 S. pyogenes Ag IA Ql (Unsp spec) Rapid Strep A negative. A negative Rapid Group A Strep Screen result does not rule out the possibility of Group A Streptococci in the specimen. The [place] [employer] recommends confirmation testing. Therefore, a Group A Strep DNA test will be performed. [employer] Phone: Special Requests NOT REPORTED [employer] Phone: Specimen Description .THROAT [employer] Phone: [employer] Phone: Vital Signs Date Time Vital Sign Value Performing Clinician Facility 09-03-2023 13:19-0500 Blood Pressure Location Danitza COOK [facility] 09-03-2023 13:19-0500 Diastolic blood pressure 70 mm[Hg] Danitza COOK [facility] 09-03-2023 13:19-0500 Heart rate 67 /min Danitza COOK [facility] 09-03-2023 13:19-0500 Respiratory rate 16 /min Danitza COOK [facility] 09-03-2023 13:19-0500 SaO2% (BldA) [Mass fraction] 100 % Danitza COOK [facility] 09-03-2023 13:19-0500 Systolic blood pressure 100 mm[Hg] Danitza COOK [facility] 08-01-2023 14:00-0500 Body height 165.1 cm Ella Enamorado Other [facility] [employer] Other 08-01-2023 14:00-0500 Body mass index (BMI) [Ratio] 25.79 kg/m2 Ella Enamorado Other [employer] Other 08-01-2023 14:00-0500 Body temperature 99.5 [degF] Ella Enamorado Other [employer] Other 08-01-2023 14:00-0500 Body weight 70.31 kg Ella Enamorado Other [employer] Other 08-01-2023 14:00-0500 Respiratory rate 18 /min Ella Enamorado Other [employer] Other 08-01-2023 14:00-0500 SaO2% (BldA) [Mass fraction] 98 % Ella Fei Other [employer] Other 03-03-2021 21:26-0400 Body height 165.1 cm Alejandra Contreras MD Work Phone: [employer] Work Phone: 03-03-2021 21:26-0400 Body mass index (BMI) [Ratio] 27.12 kg/m2 Alejandra Contreras MD Work Phone: [employer] Work Phone: 03-03-2021 21:26-0400 Body temperature 100.71 [degF] Alejandra Contreras MD Work Phone: [employer] Work Phone: 03-03-2021 21:26-0400 Body weight 73.94 kg Alejandra Contreras MD Work Phone: [employer] Work Phone: 03-03-2021 21:26-0400 Diastolic blood pressure 62 mm[Hg] Alejandra Contreras MD Work Phone: [employer] Work Phone: 03-03-2021 21:26-0400 Heart rate 96 /min Alejandra Contreras MD Work Phone: [employer] Work Phone: 03-03-2021 21:26-0400 Respiratory rate 16 /min Alejandra Contreras MD Work Phone: [employer] Work Phone: 03-03-2021 21:26-0400 SaO2% (BldA) [Mass fraction] 98 % Alejandra Contreras MD Work Phone: [employer] Work Phone: 03-03-2021 21:26-0400 Systolic blood pressure 128 mm[Hg] Alejandra Contreras MD Work Phone: [facility] Work Phone: Encounters Encounter Date Encounter Type Care Provider Facility Start: 04-21-2024 End: 04-21-2024 ambulatory BRAYDON GIACOMO Not Available Start: 04-07-2024 End: 04-07-2024 ambulatory GENEVIEVE EMPERATRIZ Not Available Start: 03-21-2024 End: 03-21-2024 ambulatory BRAYDON GIACOMO Not Available Start: 03-03-2024 End: 03-03-2024 ambulatory GENEVIEVE EMPERATRIZ Not Available Start: 02-01-2024 End: 02-01-2024 ambulatory BRAYDON GIACOMO Not Available Start: 12-31-2023 End: 12-31-2023 ambulatory BRAYDON GIACOMO Not Available Start: 12-03-2023 End: 12-03-2023 ambulatory BRAYDON GIACOMO Not Available Start: 11-05-2023 End: 11-05-2023 ambulatory BRAYDON GIACOMO Not Available Start: 09-03-2023 End: 09-04-2023 ambulatory Danitza COOK Facility: [facility] Start: 09-03-2023 End: 09-03-2023 Encounter for general adult medical examination with abnormal findings [facility] Start: 09-03-2023 End: 09-03-2023 Patient encounter procedure [facility] Start: 08-01-2023 End: 08-01-2023 ambulatory Ella Enamorado Facility:[facility] Start: 08-01-2023 Office outpatient ne w 20 minutes Ella Enamorado [facility] Start: 08-01-2023 End: 08-01-2023 ambulatory AUSTIN Enamorado Work Phone: [facility] Work Phone: Start: 08-01-2023 End: 08-01-2023 Patient encounter procedure [employer] Ella Enamorado Work Phone: [facility] Work Phone: Start: 03-03-2021 End: 03-04-2021 Emergency department patient visit ALEJANDRA CONTRERAS [facility] Start: 03-03-2021 End: 03-03-2021 Emergency department patient visit Alejandra Contreras MD Work Phone: [facility] ED Comment on above: Acute pharyngitis, [...] 04-03-2021 Influenza vaccination Flu vaccine (# 1) [facility] [employer] Phone: Start: 2019 Meningococcal (ACWY) vaccine (1 - 2-dose series) Meningococcal (ACWY) vaccine (1 - 2-dose series) [facility] [employer] Phone: Start: 2019 Screening for Chlamy rika trachomatis Chlamydia screen [facility] [employer] Phone: Start: 2018 HIV screening HIV screen [facility] Work Phone: Start: 2015 COVID-19 Vaccine (1) COVID-19 Vaccin e (1) [facility] [employer] Phone: Start: 2014 HPV vaccine (1 - 2-d ose series) HPV vaccine (1 - 2-dose series) [facility] [employer] Phone: Start: 2010 DTaP/Tdap/Td vaccine (1 - Tdap) DTaP/Tdap/Td vaccine (1 - Tdap) [employer] Phone: Start: 2004 Hepatitis A vaccine (1 of 2 - 2-dose series) Hepatitis A vaccine (1 of 2 - 2-dose series) [employer] Phone: Start: 2004 Measles,Mumps,Rubell a (MMR) vaccine (1 of 2 - Standard series) Measles,Mumps,Rubella (MMR) vaccine (1 of 2 - Standard series) [employer] Phone: Start: 2004 Varicella vaccine (1 of 2 - 2-dose childhood series) Varicella vaccine (1 of 2 - 2-dose childhood series) [employer] Phone: Start: 2003 Polio vaccine (1 of 3 - 4-dose series) Polio vaccine (1 of 3 - 4-dose series) [employer] Phone: Start: 2003 Hepatitis B vaccine (1 of 3 - 3-dose primary series) Hepatitis B vaccine (1 of 3 - 3-dose primary series) [employer] Phone: End: 03-03-2021 Strep A DNA probe, amplification Strep A DNA probe, amplification Lab Routine Once for 1 Occurrences starting 03/03/2021 until 03/03/2021 [employer] Phone: Comment on above: Once for 1 Occurrenc es starting 03/03/2021 until 03/03/2021 Strep A DNA probe, amplification Strep A DNA probe, amplification Lab Routine 03/03/2021 9:46 PM EDT [employer] Phone: Immunizations Immunization Date Immunization Notes Care Provider Pierre tsang 08-07-2021 SARS-CoV-2 (COVID-19 ) Ad26 vaccine, recombinant Danitza [employer] [facility] 01-08-2021 SARS-CoV-2 (COVID-19 ) mRNA BNT-162b2 vax Danitza [employer] [facility] Comment on above: Result Comment: gvn @ /w 12-18-2020 SARS-CoV-2 (COVID-19 ) mRNA BNT-162b2 vax Kennpolojason [employer] [facility] Comment on above: Result Comment: gvn @ /w 02-24-2020 meningococcal polysaccharide (groups A, C, Y and W-135) diphtheria toxoid conjugate vaccine (MCV4P) Danitza COOK [facility] 09-11-2016 HPV, unspecified formulation Danitza COOK [facility] 05-12-2016 HPV, unspecified formulation Danitza COKO [facility] 03-11-2016 diphtheria, tetanus toxoids and acellular pertussis vaccine Danitza COOK [facility] 03-11-2016 HPV, unspecified formulation Danitza COOK [facility] 03-11-2016 meningococcal ACWY vaccine, unspecified formulation Danitza COOK [facility] 01-02-2009 Diphtheria, tetanus toxoids and acellular pertussis vaccine, and poliovirus vaccine, inactivated Danitza COOK [facility] 01-02-2009 varicella virus vaccine Rossana COOK [facility] 10-31-2005 measles, mumps and rubella virus vaccine Danitza COOK [facility] 08-12-2004 diphtheria, tetanus toxoids and acellular pertussis vaccine [facility] 08-12-2004 varicella virus vaccine Rossana COOK [facility] 05-14-2004 haemophilus influenz ae type b vaccine, PRP-T conjugate [facility] 05-10-2004 measles, mumps and rubella virus vaccine [facility] 2003 DTaP-hepatitis B and poliovirus vaccine [facility]RISTIAN [facility] 2003 haemophilus influenz ae type b vaccine, PRP-T conjugate [facility] [employer] [facility] 2003 diphtheria, tetanus toxoids and acellular pertussis vaccine [facility] 2003 haemophilus influenz ae type b vaccine, PRP-T conjugate [facility] [employer] [facility] 2003 poliovirus vaccine, unspecified formulation [facility] [employer] [facility] 2003 DTaP-hepatitis B and poliovirus vaccine Erie [facility] 2003 haemophilus influenz ae type b vaccine, PRP-T conjugate [facility] [employer] [facility] 2003 hepatitis B vaccine, pediatric or pediatric/adolescent dosage [facility] [employer] [facility] NEGATED: Highlighted row has not occurred!09-03-2023 influenza virus vaccine, unspecified formulation Erie [employer] [facility] [place] NEGATED: Highlighted row has not occurred!10-18-2021 influenza virus vaccine, unspecified formulation Danitza COOK [facility] [place] NEGATED: Highlighted row has not occurred!02-24-2020 influenza virus vaccine, unspecified formulation Danitza COOK [facility] [place] Payers Date Payer Category Payer Medicaid [id number] 2023 Unknown [id number] 2023 Self-pay 2023 Unknown [id number] 2019 Unknown [id number] 2018 Unknown [id number] 1. [id number] 2003 Unknown [id number] 2.16.8 [id number] 2003 Unknown [id number] 2.16.84 [id number] 2003 Unknown [id number] 2.16.84 [id number] 2003 Unknown [id number] 2.16.84 [id number] 2003 Unknown [id number] 2.16.84 [id number] 2003 Unknown [id number] 2.16.84 [id number] 2003 Unknown [id number] 2.16.84 [id number] 2003 Unknown [id number] 2.16.84 [id number] 2003 Unknown [id number] 2.16.84 [id number] 1982 Unknown [id number] 2.16.84 [id number] Unknown [id number] 2.16.8 [id number] Social History Date Type Detail Facility Start: 03-03-2021 End: 09-03-2023 Tobacco smoking status NHIS Never smoker [facility] Start: 03-03-2021 Tobacco use and exposure Never used [employer] Start: 03-03-2021 Alcohol intake Lifetime non-d matti (finding) [employer] Work Phone: Start: 03-03-2021 History SDOH Alcohol Frequency 1 [employer] Phone: Start: 2005 Sex Assigned At Not on file [email or web address] Work Phone: Exposure to SARS-CoV -2 (event) Not sure [employer] Start: 2003 Sex Assigned At Female F [facility] Sex Assigned At [facility] Tobacco smoking status Never Fishe [facility] [place] Functional Status Date Assessment Result Facility 09-03-2023 Functional Status N/A [facility] [place] Evaluation + Plan note 09-03-2023 Note Date & Type Note Facility 09-03-2023 Evaluation + Plan note Diagnostic Tests PendingCBC w/ Auto Diff 09/03/23Basic Metabolic Panel 09/03/23TSH With T4fr Reflex 09/03/[address] [facility] Discharge instructions 09-02-2023 Note [...] provider. Document Revised: 12/09/2021 Document Reviewed: 12/09/2021 [employer] Patient Education 2022 [employer] Follow Up Care 07/23/2023 13:12:42 With:Danitza COOK MD, FAM Address: When:Within 1 Year(s) [facility] [place] Evaluation note 08-01-2023 Note Date & Type Note Facility 08-01-2023 Evaluation note Encounter Date Diagnosis Assessment Notes Jul, Injury of left foot, initial encounter (ICD-10 - S99.922A) Jul, Contusion of left foot, initial encounter (ICD-10 - S90.32XA) RICE (rest, ice, compress, elevate) material was printed Images and report reviewed. No acute bony injury. Discussed findings with brandynet. Soft top shoe provided to patient to wear for comfort while healing. RICE. Tylenol/Motrin. Follow up with PCP or podiatry in 1 week if no improvement, sooner if sx change or worsen. Patient verbalizes understanding and is agreeable to treatment plan. [employer] Other Evaluation note Note Date & Type Note Facility Evaluation note Diagnosis Acute pharyngitis, unspecified etiology- Primary Acute viral syndrome [facility] Work Phone: Evaluation note Note Date & Type Note Facility Evaluation note No assessment information [facility] Work Phone: Hospital course Narrative Note Date & Type Note Facility Hospital course Narrative No data available for this section [facility] Discharge instructions Attachments Note Date & Type Note Facility Hospital Discharge instructions The following attachments cannot be sent through Care Everywhere.Viral Infections: Teen (Congolese)Sore Throat: Teen (Congolese)documented in this encounter [facility] [employer] Work Phone: Progress note Note Date & Type Note Facility Progress note No data available for this section [facility] Advance Directives No Advanced Directives Records FoundDocuments on File Type Date Recorded 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 [employer] [facility]. provides no warranty or guarantee of the accuracy or completeness of information in this document.
--- NOTE | 2024-05-05 08:02 | US_ITS ---
[address] [address] Patient Name: ISIAH MARIE MRN: [facility]:[id number] date: 2005 Sex: F Assigned Patient Location: [facility] Current Patient Location: [facility] Accession/Order Number: [id number] Exam Date: 05/05/2024 08:02 Report Date: 05/05/2024 09:22 At the request of: BRAYDON GOODEN Procedure: US OB growth EXAMINATION: US OB growth HISTORY: LARGE FOR GESTATIONAL AGE COMPARISON: No relevant comparison available. FINDINGS: Heart Rate: 130 bpm Amniotic Fluid Volume: 11 cm. Largest fluid pocket 4.3 cm Number: 1 Position: Cephalic presentation, longitudinal lie BIOMETRY: BPD: 8.77 cm; 35 weeks 3 days; 44.80 % HC: 33.04 cm; 37 weeks 4 days; 62.90 % AC: 32.78 cm; 36 weeks 5 days; 81.10 % FL: 7.07 cm; 36 weeks 2 days; 55.30 % EFW: 2843.32 g; 69.70 %, 6 lbs. 9 oz. FL/AC: 21.57 FL/BPD: 80.62 HC/AC: 1.01 GESTATIONAL AGE: Age by EDC: 35 weeks 6 days LOUIE by EDC: 2024-06-03 Age by US: 36 weeks 4 days LOUIE by US: 2024-05-29 US/US OB growth IMPRESSION: Normal interval growth Electronically authenticated by: KEISHA LYONS Date: 05/05/2024 09:22
== END 2024-05-05 07:59 | disposition home or self-care (01) ==
LOC: NOMS 07:59
PROVIDERS: Family Provider Family Medicine; PCP Family Medicine; Visit Provider Obstetrics & Gynecology
DX: O36.63X0 Maternal care for excessive fetal growth, third trimester, not applicable or unspecified (principal); Z3A.35 35 weeks gestation of pregnancy
CPT/HCPCS: 76816; 87081; 87150

== ENCOUNTER 2024-05-05 18:42 | Outpatient (REF) | payer OTHER, MEDICAID, SELFPAY ==
--- OUTSIDE RECORDS SUMMARY | 2024-05-05 18:46 | XMS_ITS | CCD ---
Author Organization [facility] Care Team Providers Care Printing Table Worker Name Role Phone Danitza Cook MD Primary Care Provider [phone]( [phone] ALEJANDRA CONTRERAS Attending Unavailable DANITZA COOK Primary Care Unavailable AUSTIN Enamorado Attending Provider [phone] Ella Enamorado Attending Unavailable Ella Enamorado Admitting [...] transmitted infections (more content not included)... [facility] Family Medicine Office/Clini c Noteon 09-03-2023 Family Medicine Office/Clinic Note Chief Complaint annual chk up, not fasting, no rfs History of Present Illness This is a 18-year-old female here for annual checkup. She is on oral contraceptive prescribed by Bee Watson [employer] She is up-to-date with her exams. Her [...] . She has a late lunch at [facility]. Usually something caffeinated as [...] are clear. Oropharynx pink and moist. Excellent white earth dentition. Without thyromegaly. Clear bilaterally. Regular rate [...] tab(s), Refills(s) 0, Pharmacy: [facility], 163, cm, 10/18/21 8:35:00 EDT, Height/Length Dosing, 73, kg, 10/18/21 8:35:00 EDT, Weight Dosing Portions of this record may have been created with voice recognition artificial intelligence software, specifically Nellix, HipLink and or Bloomz. Substitutions may have occurred due to the inherent limitations of voice recognition and artificial intelligence software. Follow-up With When Contact Information Danitza COOK MD, FAM In 1 year Additional Instructions: Patient Education Health Maintenance, Female Problem List/Past Medical History Ongoing BMI 26.0-26.9,adult Encounter for well (more content not included)... [facility] Comment on above: Result Comment: Elec [...] in y (more content not included)... [facility] XR foot LT min 3V*on 023 XR foot LT min 3V* [facility] [place] [address] [place] [address] XRay Report Signed Patient: Carmen Price MR#: [id number] 2 : 2005 Acct:[id number] Age/Sex: 18 / F ADM Date: 08/01/23 Loc: [facility] Room: Type: [facility] Attending Dr: Ella Enamorado [employer] Copies to: Ella Enamorado APRN Ordering Provider: [...] Marek Plascencia M.D.08/01/2023 1:00 PM Dictation Location: [place] [address] Transcribed By: [facility] 08/01/23 1300 Dictated By: Marek Plascencia DO 08/01/23 1259 Signed By: 08/01/23 1300 [facility] Group A Strep DNAon 03-05-20 21 Group A Strep DNA Specimen Description .THROAT SWAB Special Requests NOT REPORTED Direct Exam Negative: Specimen negative for Streptococcus pyogenes by DNA amplification. Report Status FINAL 03/05/2021 [facility] Comment on above: Performed By: #### G ASDNA #### [facility] [address], [place] [id number] Senior Controls Engineer: Lonny Aquino MD [facility] [address] [place] [address] Senior Controls Engineer: Can Lala MD [id number] 03-04-2021 SARS-CoV-2 (COVID-19) RNA SKINNY+probe Ql (Unsp spec) Not detected Normal NOTDET [facility] Comment on above: Result Comment: Rapid NAAT: [...] management decisions. Fact sheet for Healthcare Providers: https://www.fda.gov/media/795668/download Fact sheet for Patients: https://www.fda.gov/media/849379/download Methodology: Isothermal Nucleic Acid Amplification Performed By: #### C OVRB #### [facility] [address] [place] [address] Senior Controls Engineer: Can Lala MD COVID-19, RapidOrdered By: Georges Contreras on 03-03-2021 SARS-CoV-2 (COVID-19) RNA SKINNY+probe Ql (Unsp spec) Not detected Not Detected [facility] Reclog Phone: Comment on above: Rapid NAAT: The [...] management decisions. Fact sheet for Healthcare Providers: https://www.fda.gov/media/103297/download Fact sheet for Patients: https://www.fda.gov/media/517123/download Methodology: Isothermal Nucleic Acid Amplification Specimen Description .NASOPHARYNGEAL SWAB [facility] Phone: [facility] Phone: Strep Gr A Direct Agon 03-03 Strep Gr A Direct Ag Specimen Descriptio n .THROAT Special Requests NOT REPORTED Direct Exam Rapid Strep A negative. A negative Rapid Group A Strep Screen result does not rule out the possibility of Group A Streptococci in the specimen. The [place] [employer] recommends confirmation testing. Therefore, a Group A Strep DNA test will be performed. Report Status FINAL 03/03/2021 Normal [facility] Comment on above: Performed By: #### S GPA #### [facility] [address] [place] [address] Senior Controls Engineer: Can Lala MD Strep Screen Group A ThroatO rdered By: Alejandra Contreras on 03-03-2021 S. pyogenes Ag IA Ql (Unsp spec) Rapid Strep A negative. A negative Rapid Group A Strep Screen result does not rule out the possibility of Group A Streptococci in the specimen. The [place] [employer] recommends confirmation testing. Therefore, a Group A Strep DNA test will be performed. [facility] Phone: Special Requests NOT REPORTED [facility] Phone: Specimen Description .THROAT KIS Group Phone: [facility] Phone: Vital Signs Date Time Vital Sign Value Performing Clinician Facility 09-03-2023 13:19-0500 Blood Pressure Location Danitza COOK [facility] 09-03-2023 13:19-0500 Diastolic blood pressure 70 mm[Hg] Danitza COOK [facility] 09-03-2023 13:19-0500 Heart rate 67 /min Danitza COOK [facility] 09-03-2023 13:19-0500 Respiratory rate 16 /min Danitza COOK [facility] 09-03-2023 13:19-0500 SaO2% (BldA) [Mass fraction] 100 % Danitza COOK [facility] 09-03-2023 13:19-0500 Systolic blood pressure 100 mm[Hg] Danitza COOK [facility] 08-01-2023 14:00-0500 Body height 165.1 cm Ella Enamorado Other [email or web address] [facility] Other 08-01-2023 14:00-0500 Body mass index (BMI) [Ratio] 25.79 kg/m2 Ella Enamorado Other [employer] Other 08-01-2023 14:00-0500 Body temperature 99.5 [degF] Ella Enamorado Other [employer] Other 08-01-2023 14:00-0500 Body weight 70.31 kg Ella Enamorado Other [employer] Other 08-01-2023 14:00-0500 Respiratory rate 18 /min Ella Enamorado Other [employer] Other 08-01-2023 14:00-0500 SaO2% (BldA) [Mass fraction] 98 % Ella Fei Other [employer] Other 03-03-2021 21:26-0400 Body height 165.1 cm Alejandra Contreras MD Work Phone: [employer] Work Phone: 03-03-2021 21:26-0400 Body mass index (BMI) [Ratio] 27.12 kg/m2 Alejandra Contreras MD Work Phone: [employer] Work Phone: 03-03-2021 21:26-0400 Body temperature 100.71 [degF] Alejandra Contreras MD Work Phone: [employer] Work Phone: 03-03-2021 21:26-0400 Body weight 73.94 kg Alejandra Contreras MD Work Phone: [employer] Work Phone: 03-03-2021 21:26-0400 Diastolic blood pressure 62 mm[Hg] Alejandra Contreras MD Work Phone: [employer] Work Phone: 03-03-2021 21:26-0400 Heart rate 96 /min Alejandra Contreras MD Work Phone: [employer] Work Phone: 03-03-2021 21:26-0400 Respiratory rate 16 /min Alejandra Contreras MD Work Phone: [employer] Work Phone: 03-03-2021 21:26-0400 SaO2% (BldA) [Mass fraction] 98 % Alejandra Contreras MD Work Phone: [employer] Work Phone: 03-03-2021 21:26-0400 Systolic blood pressure 128 mm[Hg] Alejandra Contreras MD Work Phone: [facility] Work Phone: Encounters Encounter Date Encounter [...] medical examination with abnormal findings [facility] Start: 09-03-2023 End: 09-03-2023 Patient encounter procedure [facility] Start: 08-01-2023 End: 08-01-2023 ambulatory Ella Enamorado Facility:[facility] Start: 08-01-2023 Office outpatient ne w 20 minutes Ella Enamorado [facility] Start: 08-01-2023 End: 08-01-2023 ambulatory AUSTIN Enamorado Work Phone: [facility] Work Phone: Start: 08-01-2023 End: 08-01-2023 Patient encounter procedure [employer] Ella Enamorado Work Phone: [facility] Work Phone: Start: 03-03-2021 End: 03-04-2021 Emergency department patient visit ALEJANDRA CONTRERAS [facility] Start: 03-03-2021 End: 03-03-2021 Emergency department patient visit Alejandra Contreras MD Work Phone: [facility] ED Comment on above: Acute pharyngitis, u [...] vaccination Flu vaccine (# 1) [facility] Recl[facility] Phone: Start: 2019 Meningococcal (ACWY) vaccine (1 - 2-dose series) Meningococcal (ACWY) vaccine (1 - 2-dose series) [facility] Re[facility] Phone: Start: 2019 Screening for Chlamy rika trachomatis Chlamydia screen [facility] Re[facility] Phone: Start: 2018 HIV screening HIV screen [facility] Work Phone: Start: 2015 COVID-19 Vaccine (1) COVID-19 Vaccin e (1) [facility]cl[facility] Phone: Start: 2014 HPV vaccine (1 - 2-d ose series) HPV vaccine (1 - 2-dose series) [facility] Phone: Start: 2010 DTaP/Tdap/Td vaccine (1 - Tdap) DTaP/Tdap/Td vaccine (1 - Tdap) [facility] Phone: Start: 2004 Hepatitis A vaccine (1 of 2 - 2-dose series) Hepatitis A vaccine (1 of 2 - 2-dose series) [facility] Phone: Start: 2004 Measles,Mumps,Rubell a (MMR) vaccine (1 of 2 - Standard series) Measles,Mumps,Rubella (MMR) vaccine (1 of 2 - Standard series) [facility] Phone: Start: 2004 Varicella vaccine (1 of 2 - 2-dose childhood series) Varicella vaccine (1 of 2 - 2-dose childhood series) [facility] Phone: Start: 2003 Polio vaccine (1 of 3 - 4-dose series) Polio vaccine (1 of 3 - 4-dose series) [facility] Phone: Start: 2003 Hepatitis B vaccine (1 of 3 - 3-dose primary series) Hepatitis B vaccine (1 of 3 - 3-dose primary series) [facility] Phone: End: 03-03-2021 Strep A DNA probe, amplification Strep A DNA probe, amplification Lab Routine Once for 1 Occurrences starting 03/03/2021 until 03/03/2021 [facility] Phone: Comment on above: Once for 1 Occurrenc es starting 03/03/2021 until 03/03/2021 Strep A DNA probe, amplification Strep A DNA probe, amplification Lab Routine 03/03/2021 9:46 PM EDT [facility] Phone: Immunizations Immunization Date Immunization Notes Care Provider Pierre tsang 08-07-2021 SARS-CoV-2 (COVID-19 ) Ad26 vaccine, recombinant Danitza [facility] [employer] [facility] 01-08-2021 SARS-CoV-2 (COVID-19 ) mRNA BNT-162b2 vax Danitza [facility] [employer] [facility] Comment on above: Result Comment: gvn @ /w 12-18-2020 SARS-CoV-2 (COVID-19 ) mRNA BNT-162b2 vax Kennpolojason [facility] [employer] [facility] Comment on above: Result Comment: gvn @ /w 02-24-2020 meningococcal polysaccharide (groups A, C, Y and W-135) diphtheria toxoid conjugate vaccine (MCV4P) Danitza COOK [facility] 09-11-2016 HPV, unspecified formulation Danitza COOK [facility] 05-12-2016 HPV, unspecified formulation Danitza COOK [facility] 03-11-2016 diphtheria, tetanus toxoids and acellular pertussis vaccine Danitza COOK [facility] 03-11-2016 HPV, unspecified formulation Danitza COOK [facility] 03-11-2016 meningococcal ACWY vaccine, unspecified formulation Danitza COOK [facility] 01-02-2009 Diphtheria, tetanus toxoids and acellular pertussis vaccine, and poliovirus vaccine, inactivated Danitza COOK [facility] 01-02-2009 varicella virus vaccine Rossana COOK [facility] 10-31-2005 measles, mumps and rubella virus vaccine Danitza COOK [facility] 08-12-2004 diphtheria, tetanus toxoids and acellular pertussis vaccine [facility] 08-12-2004 varicella virus vaccine Rossana COOK [facility] 05-14-2004 haemophilus influenz ae type b vaccine, PRP-T conjugate [facility] 05-10-2004 measles, mumps and rubella virus vaccine [facility] 2003 DTaP-hepatitis B and poliovirus vaccine [facility] 2003 haemophilus influenz ae type b vaccine, PRP-T conjugate [facility] 2003 diphtheria, tetanus toxoids and acellular pertussis [facility] 2003 haemophilus influenz ae type b vaccine, PRP-T conjugate [facility] 2003 poliovirus vaccine, unspecified formulation [facility] 2003 DTaP-hepatitis B and poliovirus vaccine [place] [facility] 2003 haemophilus influenz ae type b vaccine, PRP-T conjugate [facility] 2003 hepatitis B vaccine, pediatric or pediatric/adolescent dosage [facility] NEGATED: Highlighted row has not occurred!09-03-2023 influenza virus vaccine, unspecified formulation [place] [facility] [employer] [facility] [place] NEGATED: Highlighted row has not occurred!10-18-2021 influenza virus vaccine, unspecified formulation Danitza COOK [facility] [place] NEGATED: Highlighted row has not occurred!02-24-2020 influenza virus vaccine, unspecified formulation Danitza COOK [facility] [place] Payers Date Payer Category Payer Medicaid [id number] 2023 Unknown [id number] 2023 Self-pay 2023 Unknown [id number] 2019 Unknown [id number] 2018 Unknown [id number] 1. [id number] 2003 Unknown [id number] 2.16.8 [id number] 2003 Unknown [id number] 2.16.84 [id number] 2003 Unknown [id number] 2.16.84 [id number] 2003 Unknown [id number] 2.16.84 [id number] 2003 Unknown [id number] 2.16.84 [id number] 2003 Unknown [id number] 2.16.84 [id number] 2003 Unknown [id number] 2.16.84 [id number] 2003 Unknown [id number] 2.16.84 [id number] 2003 Unknown [id number] 2.16.84 [id number] 1982 Unknown [id number] 2.16.84 [id number] Unknown [id number] 2.16.8 [id number] Social History Date Type Detail Facility Start: 03-03-2021 End: 09-03-2023 Tobacco smoking status NHIS Never smoker [facility] Start: 03-03-2021 Tobacco use and exposure Never used [facility] Start: 03-03-2021 Alcohol intake Lifetime non-d matti (finding) [employer] Work Phone: Start: 03-03-2021 History SDOH Alcohol Frequency 1 [facility] Phone: Start: 2003 Sex Assigned At Not on file M [employer] Work Phone: Exposure to SARS-CoV -2 (event) Not sure [facility] Start: 2003 Sex Assigned At Female F [facility] Sex Assigned At [facility] Tobacco smoking status Never [facility] [place] Functional Status Date Assessment Result Facility 09-03-2023 Functional Status N/A [facility] [place] Evaluation + Plan note 09-03-2023 Note Date & Type Note Facility 09-03-2023 Evaluation + Plan note Diagnostic Tests PendingCBC w/ Auto Diff 09/03/23Basic Metabolic Panel 09/03/23TSH With T4fr Reflex 09/03/23 [facility] Discharge instructions 09-02-2023 Note Date [...] provider. Document Revised: 12/09/2021 Document Reviewed: 12/09/2021 [employer] Patient Education 2022 [employer]. Follow Up Care 07/23/2023 13:12:42 With:Danitza COOK MD, FAM Address: When:Within 1 Year(s) [facility] [place] Evaluation note 08-01-2023 Note [...] understanding and is agreeable to treatment plan. [employer] Other Evaluation note Note Date & Type Note Facility Evaluation note Diagnosis Acute pharyngitis, unspecified etiology- Primary Acute viral syndrome documented in this encounter [facility] Work Phone: Evaluation note Note Date & Type Note Facility Evaluation note No assessment information [facility] Work Phone: Hospital course Narrative Note Date & Type Note Facility Hospital course Narrative No data available for this section [facility] Discharge instructions Attachments Note Date & Type Note Facility Hospital Discharge instructions The following attachments cannot be sent through Care Everywhere.Viral Infections: Teen (Gibraltarian)Sore Throat: Teen (Gibraltarian)documented in this encounter [facility] [employer] Work Phone: Progress note Note Date & Type Note Facility Progress note No data available for this section [facility] Advance Directives No Advanced Directives Records FoundDocuments on File Type Date Recorded Patient Spring Former Expl anation ACP-Advance Directive ACP-Power of Student Specialist Summary Purpose Family History No Family History [...] section and content) DATE CREATED AUTHOR 03/06/2021 [employer] DATE CREATED AUTHOR AUTHOR'S ORGANIZ ATION 08/06/2023 [facility] DATE CREATED AUTHOR AUTHOR'S ORGANIZ ATION 10/09/2023 [facility] DATE CREATED AUTHOR AUTHOR'S ORGANIZ ATION 04/23/2024 [facility] dical Specialists EPIC Care Teams (unrecognized [...] BE BASED ON THE PRIMARY CLINICAL RECORDS. [facility]. provides no warranty or guarantee of the accuracy or completeness of information in this document.
== END 2024-05-05 18:43 | disposition home or self-care (01) ==
LOC: LAB 18:42
PROVIDERS: Family Provider Family Medicine; PCP Family Medicine; Visit Provider Physician Assistant
DX: Z34.93 Encounter for supervision of normal pregnancy, unspecified, third trimester (principal); Z3A.35 35 weeks gestation of pregnancy
CPT/HCPCS: 87081; 87150

== ENCOUNTER 2024-05-24 19:59 | Observation (INO) | payer OTHER, MEDICAID, SELFPAY ==
--- OUTSIDE RECORDS SUMMARY | 2024-05-24 20:06 | XMS_ITS | CCD ---
Author Organization [facility] Care Team Providers Care Rn On Site Name Role Phone Danitza Cook MD Primary Care Provider ALEJANDRA LAST Attending Unavailable DANITZA COOK Primary Care Unavailable AUSTIN Enamorado Attending Provider [phone] Ella Enamorado Attending Unavailable Ella Enamorado Admitting Unavailable NO FAMILY, PHYSICIAN Primary Care Unavailable Ella Enamorado Unavailable Danitza COOK Primary Care Physician [phone] Danitza COOK Attending Unavailable Danitza Cook MD Primary Care Provider BRAYDON LEE Attending Unavailable JESUS, BRAYDON Attending Unavailable JESUS, BRAYDON Attending Unavailable EMPERATRIZ, DENISE Attending Unavailable JESUS, BRAYDON Attending Unavailable EMPERATRIZ, DENISE Attending Unavailable JESUS, BRAYDON Attending Unavailable EMPERATRIZ, DENISE Attending Unavailable EMPERATRIZ, DENISE Attending Unavailable JESUSBRAYDON HAN Attending Unavailable Medications Current Medications Medication Drug [...] or Fever 30 tablet 1 03/03/2021 Active polysaccharide iron complex 391 mg oral capsule (9 sources) Start: 02-22-2024 End: 02-21-2025 take 1 capsule by mouth once daily iron polysaccharides (ProFe) 391.3 (180 Fe) MG capsule Indications: Anemia during in second trimester Take 1 capsule (391.3 mg) by mouth Daily 30 capsule 11 02/22/2024 02/21/2025 Active Post-OP Shoe/Soft Top Women - (1 source) Start: 08-01-2023 Post-OP Shoe/Soft Top Women - as directed Jul, Active Problems Active Problems Problem Classification Problem Date Documented [...] (BMI) 26.0-26.9, adult] Onset: 09-03-2023 Episodic Other and delivery including normal (6 sources) Third trimester ; Translations: [Encounter for supervision of normal , unspecified, third trimester] 05-05-2024 Episodic Other upper respiratory infections (1 source) Acute pharyngitis; Translations: [Acute pharyngitis, unspecified] Episodic Residual codes; unclassified (2 sources) Gestation period, 36 weeks; Translations: [36 weeks gestation of ] 05-12-2024 Episodic Residual codes; unclassified (2 sources) Gestation period, 37 weeks; Translations: [37 weeks gestation of ] 05-19-2024 Episodic Spondylosis; intervertebral disc disorders; other back [...] viral disease; Translations: [Viral infection, unspecified] Episodic Past or Other Problems Problem Classification Problem Date Documented Da te Episodic/Chronic Nausea and vomiting (9 sources) Nausea and vomiting; Translations: [Nausea with vomiting, unspecified] Onset: 12-31-2023 12-31-2023 Episodic Other screening for suspected conditions (not mental disorders or infectious disease) (9 sources) Patient encounter status; Translations: [Encounter for other specified screening] Onset: 12-31-2023 12-31-2023 Episodic Residual codes; unclassified (9 sources) Gestation period, 17 weeks; Translations: [17 weeks gestation of ] Onset: 12-31-2023 12-31-2023 Episodic Results Test Name Value Interpretation Reference Range Facil ity Urinalysis macro (dipstick) panel (U)on 05-19-2024 Bilirubin, UA Negative Negative - 4(70) +++ mg/dL [facility] Blood, UA Negative Negative - 50 Rodolfo/mcL [facility] Clarity, UA Clear [facility] re Color, UA Yellow [facility] Glucose, UA Negative Negative - 1999(110) ++++ mg/dL [facility] Interpretation and review of laboratory results Abnormal [facility] Ketones, UA Negative Negative - 160(16) ++++ mg/dL [facility] Leukocytes, UA Trace Negative - 500+++ Julian/mcL [facility] Nitrite, UA Negative Negative - Positive [facility] pH, UA 6.5 5 - 9 [facility] Protein, UA Negative Negative - 1999(20) ++++ mg/dL [facility] Spec Grav, UA 1.025 1 - 1.03 [facility] Urobilinogen, UA 0.2 0.2 - 12 mg/dL [facility] macro (dipstick) panel (U)on 05-12-2024 Bilirubin, UA Negative Negative - 4(70) +++ mg/dL [facility] Blood, UA Negative Negative - 50 Rodolfo/mcL [facility] Clarity, UA Clear [facility] re Color, UA Yudi [facility] Glucose, UA Negative Negative - 1999(110) ++++ mg/dL [facility] Interpretation and review of laboratory results Normal [facility] Ketones, UA Negative Negative - 160(16) ++++ mg/dL [facility] Leukocytes, UA Negative Negative - 500+++ Julian/mcL [facility] Nitrite, UA Negative Negative - Positive [facility] pH, UA 7.0 5 - 9 [facility] Protein, UA Negative Negative - 1999(20) ++++ mg/dL [facility] Spec Grav, UA 1.030 1 - 1.03 [facility] Urobilinogen, UA 1.0 0.2 - 12 mg/dL [facility] Urinalysis macro (dipstick) panel (U)on 05-05-2024 Bilirubin, UA Negative Negative - 4(70) +++ mg/dL [facility] Blood, UA Negative Negative - 50 Rodolfo/mcL [facility] Clarity, UA Clear [facility] re Color, UA Yellow [facility] Glucose, UA Negative Negative - 1999(110) ++++ mg/dL [facility] Healthcare Interpretation and review of laboratory results Normal [facility] Healthcare Ketones, UA Negative Negative - 160(16) ++++ mg/dL [facility] Healthcare Leukocytes, UA Negative Negative - 500+++ Julian/mcL [facility] Healthcare Nitrite, UA Negative Negative - Positive [facility] Healthcare pH, UA 5.5 5 - 9 [facility] Protein, UA Negative Negative - 1999(20) ++++ mg/dL [facility] Spec Grav, UA 1.020 1 - 1.03 [facility] Urobilinogen, UA 1.0 0.2 - 12 mg/dL [facility] Amb[facility] Visit Summaryon 0 09-03-2023 Ambulatory Visit Summary CARMEN MARIE DOB:2005 Visit Date:09/03/2023 Ambulatory Visit Instructions Your Diagnosis Encounter for well adult exam with abnormal findings Fatigue Vasovagal episode Overweight BMI 26.0-26.9,adult Your Care Team Attending Physician - CHRISTIAN LAGUNADanitza Primary Care Physician - Danitza COOK MD [...] transmitted infections (more content not included)... Normal [facility] Family Medicine Office/Clini c Noteon 09-03-2023 Family Medicine Office/Clinic Note Chief Complaint annual chk up, not fasting, no rfs History of Present Illness This is a 18-year-old female here for annual checkup. She is on oral contraceptive prescribed by Bee Watson CNP She is up-to-date with her exams. Her [...] . She has a late lunch at [employer]. Usually something caffeinated as well as a [...] are clear. Oropharynx pink and moist. Excellent [place] dentition. Without thyromegaly. Clear bilaterally. Regular rate [...] for wheezing, 1 EA, Refill(s) 0, [id number], 163, cm, 10/18/21 8:35:00 EDT, Height/Length Dosing, 73, kg, 10/18/21 8:35:00 EDT, Weight Dosing fluconazole, 150 mg = 1 tab(s), Oral, Once, # 1 tab(s), Refills(s) 0, Pharmacy: [facility], 163, cm, 10/18/21 8:35:00 EDT, Height/Length Dosing, 73, kg, 10/18/21 8:35:00 EDT, Weight Dosing Portions of this record may have been created with voice recognition artificial intelligence software, specifically [employer] and or [employer]. Substitutions may have occurred due to the inherent limitations of voice recognition and artificial intelligence software. Follow-up With When Contact Information Danitza COOK MD, FAM In 1 year Additional Instructions: Patient Education Health Maintenance, Female Problem List/Past Medical History Ongoing BMI 26.0-26.9,adult Encounter for well (more content not included)... Normal [facility] Comment on above: Result Comment: Elec [...] in y (more content not included)... Normal [facility] XR foot LT min 3V*on 023 XR foot LT min 3V* [facility] Main [place] [address] [place] [address] XRay Report Signed Patient: Carmen Marie MR#: [id number] 2 : 2005 Acct:[id number] Age/Sex: 18 / F ADM Date: 08/01/23 Loc: XDUCLY Room: Type: [facility] Attending Dr: Ella Enamorado SWEAT BOX ATTENDANT Copies to: Ella Enamorado APRN Ordering Provider: [...] Marek Plascencia M.D.08/01/2023 1:00 PM Dictation Location: [place] [address] Transcribed By: [facility] 08/01/23 1300 Dictated By: Marek Plascencia DO 08/01/23 1259 Signed By: 08/01/23 1300 [facility] Group A Strep DNAon 08-03-20 21 Group A Strep DNA Specimen Description .THROAT SWAB Special Requests NOT REPORTED Direct Exam Negative: Specimen negative for Streptococcus pyogenes by DNA amplification. Report Status FINAL 03/05/2021 Normal [facility] Comment on above: Performed By: #### G ASDNA #### [facility] [employer] [address] [place] [address] [employer] [place] Department Supervisor: Lonny Aquino MD [facility] [address] [place] [address] [employer] [place] Department Supervisor: Can Lala MD [id number] 03-04-2021 SARS-CoV-2 (COVID-19) RNA SKINNY+probe Ql (Unsp spec) Not detected Normal NOTDET [facility] Comment on above: Result Comment: [...] management decisions. Fact sheet for Healthcare Providers: https://www.fda.gov/media/167205/download Fact sheet for Patients: https://www.fda.gov/media/648932/download Methodology: Isothermal Nucleic Acid Amplification Performed By: #### C OVRB #### [facility] [address] [place] [address] [employer] [place] Department Supervisor: Can Lala MD COVID-19, RapidOrdered By: Georges Last on 03-03-2021 SARS-CoV-2 (COVID-19) RNA SKINNY+probe Ql (Unsp spec) Not detected Not Detected [facility] Phone: Comment on above: Rapid NAAT: The [...] management decisions. Fact sheet for Healthcare Providers: https://www.fda.gov/media/900877/download Fact sheet for Patients: https://www.fda.gov/media/712279/download Methodology: Isothermal Nucleic Acid Amplification Specimen Description .NASOPHARYNGEAL SWAB [employer] Phone: [facility] Phone: Strep Gr A Direct Agon 03-03 Strep Gr A Direct Ag Specimen Descriptio n .THROAT Special Requests NOT REPORTED Direct Exam Rapid Strep A negative. A negative Rapid Group A Strep Screen result does not rule out the possibility of Group A Streptococci in the specimen. The [place] [employer] recommends confirmation testing. Therefore, a Group A Strep DNA test will be performed. Report Status FINAL 03/03/2021 Normal [facility] Comment on above: Performed By: #### S GPA #### [facility] [address] [place] [address] [employer] [place] Department Supervisor: Can Lala MD Strep Screen Group A ThroatO rdered By: Alejandra Last on 03-03-2021 S. pyogenes Ag IA Ql (Unsp spec) Rapid Strep A negative. A negative Rapid Group A Strep Screen result does not rule out the possibility of Group A Streptococci in the specimen. The [place] [employer] recommends confirmation testing. Therefore, a Group A Strep DNA test will be performed. [facility] Phone: Special Requests NOT REPORTED [facility] Phone: Specimen Description .THROAT [facility] Cylande Work Phone: [facility] [employer] Work Phone: Vital Signs Date Time Vital Sign Value Performing Clinician Facility 05-19-2024 10:02-0400 Body weight 90.27 kg Braydon Jesus DO Work Phone: [facility] 05-19-2024 10:02-0400 Diastolic blood pressure 70 mm[Hg] Braydon Jesus DO Work Phone: [facility] 05-19-2024 10:02-0400 Systolic blood pressure 120 mm[Hg] Braydon Jesus DO Work Phone: [facility] 05-12-2024 15:46-0400 Body weight 89.81 kg Denise Frazier PA Work Phone: [facility] 05-12-2024 15:46-0400 Diastolic blood pressure 70 mm[Hg] Denise Frazier PA Work Phone: [facility] 05-12-2024 15:46-0400 Systolic blood pressure 120 mm[Hg] Denise Tridell PA Work Phone: [facility] 05-05-2024 09:11-0400 Body weight 88 kg Denise Emperatriz PA Work Phone: [facility] 05-05-2024 09:11-0400 Diastolic blood pressure 74 mm[Hg] Denise Tridell PA Work Phone: [facility] 05-05-2024 09:11-0400 Systolic blood pressure 114 mm[Hg] Denise Emperatriz PA Work Phone: [facility] 09-03-2023 13:19-0500 Blood Pressure Location Danitza COOK [facility] 09-03-2023 13:19-0500 Diastolic blood pressure 70 mm[Hg] Danitza COOK [facility] 09-03-2023 13:19-0500 Heart rate 67 /min Danitza COOK [facility] 09-03-2023 13:19-0500 Respiratory rate 16 /min Danitza COOK [facility] 09-03-2023 13:19-0500 SaO2% (BldA) [Mass fraction] 100 % Danitza COOK [facility] 09-03-2023 13:19-0500 Systolic blood pressure 100 mm[Hg] Danitza COOK [facility] 08-01-2023 14:00-0500 Body height 165.1 cm Ella Enamorado Other [employer] [facility] [employer] Other 08-01-2023 14:00-0500 Body mass index (BMI) [Ratio] 25.79 kg/m2 Ella Enamorado Other [employer] Other 08-01-2023 14:00-0500 Body temperature 99.5 [degF] Ella Enamorado Other [employer] Other 08-01-2023 14:00-0500 Body weight 70.31 kg Ella Enamorado Other [employer] Other 08-01-2023 14:00-0500 Respiratory rate 18 /min Ella Enamorado Other [employer] Other 08-01-2023 14:00-0500 SaO2% (BldA) [Mass fraction] 98 % Ella Enamorado Other [employer] Other 03-03-2021 21:26-0400 Body height 165.1 cm Alejandra Last MD Work Phone: [employer] [facility] Work Phone: 03-03-2021 21:26-0400 Body mass index (BMI) [Ratio] 27.12 kg/m2 Alejandra Last MD Work Phone: [employer] Work Phone: 03-03-2021 21:26-0400 Body temperature 100.71 [degF] Alejandra Last MD Work Phone: [employer] Work Phone: 03-03-2021 21:26-0400 Body weight 73.94 kg Alejandra Last MD Work Phone: [employer] Work Phone: 03-03-2021 21:26-0400 Diastolic blood pressure 62 mm[Hg] Alejandra Last MD Work Phone: [employer] Work Phone: 03-03-2021 21:26-0400 Heart rate 96 /min Alejandra Last MD Work Phone: [employer] Work Phone: 03-03-2021 21:26-0400 Respiratory rate 16 /min Alejandra Last MD Work Phone: [employer] Work Phone: 03-03-2021 21:26-0400 SaO2% (BldA) [Mass fraction] 98 % Alejandra Last MD Work Phone: [employer] Work Phone: 03-03-2021 21:26-0400 Systolic blood pressure 128 mm[Hg] Alejandra Last MD Work Phone: [employer] Work Phone: Encounters Encounter Date Encounter Type Care Provider Facility Start: 05-19-2024 End: 05-19-2024 [employer] Braydon Jesus [employer] Work Phone: [facility] Start: 05-19-2024 End: 05-19-2024 Bamboo flowsheet Braydon Jesus [employer] Work Phone: [facility] Start: 05-19-2024 End: 05-19-2024 flow sheet Braydon Jesus DO Work Phone: [facility] Comment on above: 37 weeks gestation o f ; Third trimester Start: 05-19-2024 End: 05-19-2024 ambulatory BRAYDON JESUS Not Available Start: 05-12-2024 End: 05-12-2024 ambulatory DENISE EMPERATRIZ Not Available Start: 05-12-2024 End: 05-12-2024 flow sheet Denise Frazier PA Work Phone: [facility] Comment on above: 36 weeks gestation o f ; Third trimester Start: 05-12-2024 End: 05-12-2024 Bamboo flowsheet Denise Frazier PA Work Phone: [facility] Start: 05-12-2024 End: 05-12-2024 Bamboo flowsheet Denise Frazier PA Work Phone: [facility] Start: 05-05-2024 End: 05-05-2024 Bamboo flowsheet Denise Frazier PA Work Phone: [facility] Start: 05-05-2024 End: 05-05-2024 Bamboo flowsheet Denise Frazier PA Work Phone: [facility] Start: 05-05-2024 End: 05-05-2024 ambulatory DENISE EMPERATRIZ Not Available Start: 05-05-2024 End: 05-05-2024 flow sheet Denise Frazier PA Work Phone: [facility] Comment on above: Third trimester preg jessica Start: 04-21-2024 End: 04-21-2024 ambulatory BRAYDON JESUS Not Available Start: 04-07-2024 End: 04-07-2024 ambulatory DENISE EMPERATRIZ Not Available Start: 03-21-2024 End: 03-21-2024 ambulatory BRAYDON JESUS Not Available Start: 03-03-2024 End: 03-03-2024 ambulatory DENISE EMPERATRIZ Not Available Start: 02-01-2024 End: 02-01-2024 ambulatory BRAYDON JESUS Not Available Start: 12-31-2023 End: 12-31-2023 ambulatory BRAYDON JESUS Not Available Start: 12-03-2023 End: 12-03-2023 ambulatory BRAYDON JESUS Not Available Start: 11-05-2023 End: 11-05-2023 ambulatory BRAYDON JESUS Not Available Start: 09-03-2023 End: 09-04-2023 ambulatory Danitza COOK Facility:[facility] Start: 09-03-2023 End: 09-03-2023 Encounter for general adult medical examination with abnormal findings Danitza COOK [facility] Start: 09-03-2023 End: 09-03-2023 Patient encounter procedure Gonzales[facility] Start: 08-01-2023 End: 08-01-2023 ambulatory Ella Enamorado Facility:[facility] Start: 08-01-2023 Office outpatient ne w 20 minutes Ella Enamorado [facility] Start: 08-01-2023 End: 08-01-2023 ambulatory SWEAT BOX ATTENDANTAngel Enamorado Work Phone: [facility] Work Phone: Start: 08-01-2023 End: 08-01-2023 Patient encounter procedure AUSTIN Enamorado Work Phone: [facility] Work Phone: Start: 03-03-2021 End: 03-04-2021 Emergency department patient visit ALEJANDRA LAST [facility] Start: 03-03-2021 End: 03-03-2021 Emergency department patient visit Alejandra Last MD Work Phone: [facility] ED Comment on above: Acute pharyngitis, u nspecified etiology (Primary Dx); Acute viral syndrome Procedures Date Procedure Procedure Detail Performing Clinician Start: 05-19-2024 Urnls dip stick/tabl et rgnt non-auto w/o micrscp Braydon Lee DO Work Phone: Start: 05-12-2024 Urnls dip stick/tabl et rgnt non-auto w/o micrscp Denise BLISS Work Phone: Start: 05-05-2024 Urnls dip stick/tabl et rgnt non-auto w/o micrscp Denise BLISS Work Phone: Start: 08-01-2023 X-ray of left foot SWEAT BOX ATTENDANT Ella Enamorado Work Phone: Start: 03-03-2021 COVID-19, RAPID Alejandra Last MD Work Phone: Start: 03-03-2021 Iaadiadoo streptococ cus group a Alejandra Last MD Work Phone: Tonsillectomy and adenoidectomy Danitza COOK Plan of Treatment Date Care Activity Detail Author Start: 05-26-2024 End: 05-26-2024 Patient encounter procedure 05/26/2024 10:30 AM EDT Routine [facility] [address] [place] [address] Braydon Lee, DO [address] [place] [address] [facility] Start: 05-19-2024 End: 05-19-2024 Patient encounter procedure [facility] Comment on above: Arrived Start: 05-12-2024 End: 05-12-2024 Patient encounter procedure 05/12/2024 3:40 PM EDT Routine [facility] [address] [place] [address] Denise Frazier PA [address] [place] [address] [facility] Start: 05-05-2024 End: 05-05-2025 Strep B DNA probe, amplification Strep B DNA probe, amplification Lab Routine Third trimester Expected: 05/05/2024 (Approximate), Expires: 05/05/2025 [facility] Work Phone: Comment on above: Expected: 05/05/2024 (Approximate), Expires: 05/05/2025 Start: 04-03-2024 Influenza vaccination Influenza Vacc ine (#1) [facility] Start: 04-03-2021 Influenza vaccination Flu vaccine (# 1) [facility] [employer] Phone: Start: 2019 Meningococcal (ACWY) vaccine (1 - 2-dose series) Meningococcal (ACWY) vaccine (1 - 2-dose series) [facility] [employer] Phone: Start: 2019 Screening for Chlamy rika trachomatis Chlamydia screen [facility] [employer] Phone: Start: 2018 HIV screening HIV screen [facility] Work Phone: Start: 2015 COVID-19 Vaccine (1) COVID-19 Vaccin e (1) [facility] [employer] Phone: Start: 2014 HPV vaccine (1 - 2-d ose series) HPV vaccine (1 - 2-dose series) [facility] [employer] Phone: Start: 2010 DTaP/Tdap/Td vaccine (1 - Tdap) DTaP/Tdap/Td vaccine (1 - Tdap) [facility] [employer] Phone: Start: 2004 Hepatitis A vaccine (1 of 2 - 2-dose series) Hepatitis A vaccine (1 of 2 - 2-dose series) [facility] [employer] Phone: Start: 2004 Measles,Mumps,Rubell a (MMR) vaccine (1 of 2 - Standard series) Measles,Mumps,Rubella (MMR) vaccine (1 of 2 - Standard series) [facility] [employer] Phone: Start: 2004 Varicella vaccine (1 of 2 - 2-dose childhood series) Varicella vaccine (1 of 2 - 2-dose childhood series) [employer] Phone: Start: 2003 Polio vaccine (1 of 3 - 4-dose series) Polio vaccine (1 of 3 - 4-dose series) [employer] Phone: Start: 2003 Hepatitis B vaccine (1 of 3 - 3-dose primary series) Hepatitis B vaccine (1 of 3 - 3-dose primary series) [employer] Phone: End: 03-03-2021 Strep A DNA probe, amplification Strep A DNA probe, amplification Lab Routine Once for 1 Occurrences starting 03/03/2021 until 03/03/2021 [employer] Phone: Comment on above: Once for 1 Occurrenc es starting 03/03/2021 until 03/03/2021 Strep A DNA probe, amplification Strep A DNA probe, amplification Lab Routine 03/03/2021 9:46 PM EDT [facility] Phone: Immunizations Immunization Date Immunization Notes Care Provider Pierre tsang 08-07-2021 SARS-CoV-2 (COVID-19 ) Ad26 vaccine, recombinant Danitza COOK [facility] 01-08-2021 SARS-CoV-2 (COVID-19 ) mRNA BNT-162b2 [employer] [facility] Comment on above: Result Comment: alysa @ ra/w 12-18-2020 SARS-CoV-2 (COVID-19 ) mRNA BNT-162b2 [employer] Expert TA [facility] Comment on above: Result Comment: alysa @ ra/w 02-24-2020 meningococcal polysaccharide (groups A, C, Y and W-135) diphtheria toxoid conjugate vaccine (MCV4P) Danitza COOK [facility] 09-11-2016 HPV, unspecified formulation Danitza COOK [facility] 05-12-2016 HPV, unspecified formulation Danitza COOK [facility] 03-11-2016 diphtheria, tetanus toxoids and acellular pertussis vaccine Christ[employer]er Expert TA [facility] 03-11-2016 HPV, unspecified formulation Danitza COOK [facility] 03-11-2016 meningococcal ACWY vaccine, unspecified formulation Danitza Expert TA [facility] 01-02-2009 Diphtheria, tetanus toxoids and acellular pertussis vaccine, and poliovirus vaccine, inactivated Christike COOK [facility] 01-02-2009 varicella virus vaccine Christpoloer Expert TA [facility] 05-29-2006 influenza virus vaccine, unspecified formulation Denise BLISS Work Phone: [facility] 10-31-2005 measles, mumps and rubella virus vaccine [employer]er Expert TA [facility] 08-12-2004 diphtheria, tetanus toxoids and acellular pertussis vaccine Gonzaleser Expert TA [facility] 08-12-2004 varicella virus vaccine Christpoloer Expert TA [facility] 05-14-2004 haemophilus influenz ae type b vaccine, PRP-T conjugate Christpolojason Expert TA [facility] 05-10-2004 measles, mumps and rubella virus vaccine Christpoloer Expert TA [facility] 2003 DTaP-hepatitis B and poliovirus vaccine Danitza COOK [facility] 2003 haemophilus influenz ae type b vaccine, PRP-T conjugate [employer]jason Expert TA [facility] 2003 diphtheria, tetanus toxoids and acellular pertussis vaccine Dantiza COOK [facility] 2003 haemophilus influenz ae type b vaccine, PRP-T conjugate Danitza Expert TA [facility] 2003 poliovirus vaccine, unspecified formulation Danitza Expert TA [facility] 2003 DTaP-hepatitis B and poliovirus vaccine Danitza Expert TA [facility] 2003 haemophilus influenz ae type b vaccine, PRP-T conjugate Danitza Expert TA [facility] 2003 hepatitis B vaccine, pediatric or pediatric/adolescent dosage [facility]za [facility]OOK [facility] NEGATED: Highlighted row has not occurred!09-03-2023 influenza virus vaccine, unspecified formulation [facility]OOK [facility] NEGATED: Highlighted row has not occurred!10-18-2021 influenza virus vaccine, unspecified formulation Danitza Expert TA [facility] NEGATED: Highlighted row has not occurred!02-24-2020 influenza virus vaccine, unspecified formulation Danitza Expert [facility] Payers Date Payer Category Payer Medicaid [id number] 2024 Medicaid [id number] 2023 Private Health Insurance [employer] [id number] 2023 Unknown [employer] [id number] 2023-Present [address] [place] [address] [id number]. [id number] 2023 Unknown [id number] 2023 Self-pay 2023 Unknown [id number] 2019 Unknown [id number] [id number]. [id number] 2018 Unknown [id number] 1.2.840.030618.1.13.239.2. 7.3.801217.315 2003 Unknown [id number] 2.16.840.1.659052.3.579.2. 727 2003 Unknown [id number] 2.16.840.1.116322.3.579.2. 1259 2003 Unknown [id number] 2.16.840.1.643841.3.579.2. 1259 2003 Unknown [id number] 2.16.840.1.008960.3.579.2. 1259 2003 Unknown [id number] 2.16.840.1.249366.3.579.2. 1259 2003 Unknown [id number] 2.16.840.1.797669.3.579.2. 1259 2003 Unknown [id number] 2.16.840.1.356769.3.579.2. 1259 2003 Unknown [id number] 2.16.840.1.525290.3.579.2. 1259 2003 Unknown [id number] 2.16.840.1.377800.3.579.2. 1259 2003 Unknown [id number] 2.16.840.1.474739.3.579.2. 1259 2003 Unknown [id number] 2.16.840.1.095693.3.579.2. 1259 2003 Unknown [id number] 2.16.840.1.163540.3.579.2. 1259 1982 Unknown [id number] 2.16.840.1.055865.3.579.2. 174 Unknown [id number] 2.16.840.1.464197.3.579.2. 531 Social History Date Type Detail Facility Start: 03-03-2021 End: 04-21-2024 Tobacco smoking status [facility] Never smoker [facility] [place] Start: 03-03-2021 End: 04-21-2024 Tobacco use and exposure Never used [employer] Start: 03-03-2021 End: 05-12-2024 Alcohol intake Lifetime non-drinker (finding) [employer] Phone: Start: 03-03-2021 History SDOH Alcohol Frequency 1 [employer] Phone: Start: 2003 Sex Assigned At Not on file M [employer] Phone: Exposure to SARS-CoV -2 (event) Not sure [employer] Start: 2003 Sex Assigned At Female F [facility] Start: 04-21-2024 Sex Assigned At F [facility] Tobacco smoking status Never [facility] [place] Start: 04-21-2024 History of Social function [facility] Start: 09-11-2023 [facility] Functional Status Date Assessment Result Facility 09-03-2023 Functional Status N/A [facility] [place] Clinical Notes 08-01-2023 to 05-19-2024 RUTHY Hernández - 05/19/2024 10:00 AM RUTHY Arellano - 05/12/2024 3:40 PM RUTHY Arellano - 05/05/2024 8:30 AM EDT Note Date & Type Note Facility 05-19-2024 History of Present illness Narrative Reason for Appointment: Patient ID: Carmen Marie is a 19 y.o. female who presents for Routine Visit Patient presents today for Return OB appointment. MEDICATIONS Current Outpatient Medications Medication Instructions iron polysaccharides (PROFE) 391.3 mg, Oral, Daily ALLERGIES No Known Allergies PROBLEMS Active Ambulatory Problems Diagnosis Date Noted 17 weeks gestation of 12/31/2023 Screening, , for anatomic survey 12/31/2023 Nausea and vomiting 12/31/2023 Resolved Ambulatory Problems Diagnosis Date Noted No Resolved Ambulatory Problems Past Medical History: Diagnosis Date Asthma ([facility] 2008 HISTORY PAST MEDICAL HISTORY SOCIAL HISTORY Past Medical History: Diagnosis Date Asthma ([facility]) 2008 Social History Tobacco Use Smoking status: Never Smokeless tobacco: Never Substance Use Topics Alcohol use: Never Drug use: Never FAMILY HISTORY Family History Problem Relation Name Age of Onset No Known Problems Mother Diabetes Father Eric Marie . SURGICAL HISTORY History reviewed. No pertinent surgical history. REVIEW OF SYSTEMS Review of Systems: Review of Systems Constitutional: Negative. HENT: Negative. Eyes: Negative. Respiratory: Negative. Cardiovascular: Negative. Gastrointestinal: Negative. Genitourinary: Negative. Musculoskeletal: Negative. Skin: Negative. Neurological: Negative. All other systems reviewed and are negative. Hematological: Negative. Endocrine: Negative. Allergic/Immunologic: Negative. OBJECTIVE Objective: Physical Exam Constitutional: Appearance: Normal appearance. She is normal weight. HENT: Head: Normocephalic. Cardiovascular: Rate and Rhythm: Normal rate. Pulses: Normal pulses. Pulmonary: Effort: Pulmonary effort is normal. Breath sounds: Normal breath sounds. Abdominal: Palpations: Abdomen is soft. Musculoskeletal: General: Normal range of motion. Neurological: General: No focal deficit present. Mental Status: She is alert and oriented to person, place, and time. Psychiatric: Mood and Affect: Mood normal. Behavior: Behavior normal. Thought Content: Thought content normal. Judgment: Judgment normal. Vitals and nursing note reviewed. Vitals: Estimated body mass index is 27.21 kg/m as calculated from the following: Height as of 12/31/18: 5' 4.5 . Weight as of 12/31/18: 161 lb. BP: 120/70 Patient's last menstrual period was 08/28/2023. ASSESSMENT & PLAN ICD-10-CM 1. 37 weeks gestation of Z3A.37 POCT urinalysis dipstick manually resulted 2. Third trimester Z34.93 POCT urinalysis dipstick manually resulted Return OB: Patient presents today for a routine obstetrics appointment. Patient is currently 37w6d . Patient states she is doing well but has complaints of being tired due to current . Patient has verbalizes frequent movement. labor precautions was discussed/given and patient was instructed to perform kick counts three times a day. Orders Placed This Encounter Procedures POCT urinalysis dipstick manually resulted Follow Up: Patient is to return to office in 1 week for routine OB appointment. Documented by RUTHY eHrnández documented in this encounter [facility] 05-12-2024 History of Present illness Narrative Reason for Appointment: Patient ID: Carmen Marie is a 19 y.o. female who presents for Routine Visit Patient presents today for Return OB appointment. MEDICATIONS Current Outpatient Medications Medication Instructions iron polysaccharides (PROFE) 391.3 mg, Oral, Daily ALLERGIES No Known Allergies PROBLEMS Active Ambulatory Problems Diagnosis Date Noted 17 weeks gestation of 12/31/2023 Screening, , for anatomic survey 12/31/2023 Nausea and vomiting 12/31/2023 Resolved Ambulatory Problems Diagnosis Date Noted No Resolved Ambulatory Problems Past Medical History: Diagnosis Date Asthma ([facility]) 2009 HISTORY PAST MEDICAL HISTORY SOCIAL HISTORY Past Medical History: Diagnosis Date Asthma ([facility]) 2009 Social History Tobacco Use Smoking status: Never Smokeless tobacco: Never Substance Use Topics Alcohol use: Never Drug use: Never FAMILY HISTORY Family History Problem Relation Name Age of Onset No Known Problems Mother Diabetes Father Eric Marie Jr. SURGICAL HISTORY History reviewed. No pertinent surgical history. REVIEW OF SYSTEMS Review of Systems: Review of Systems Constitutional: Negative. HENT: Negative. Eyes: Negative. Respiratory: Negative. Cardiovascular: Negative. Gastrointestinal: Negative. Genitourinary: Negative. Musculoskeletal: Negative. Skin: Negative. Neurological: Negative. All other systems reviewed and are negative. Hematological: Negative. Endocrine: Negative. Allergic/Immunologic: Negative. OBJECTIVE Objective: Physical Exam Constitutional: Appearance: Normal appearance. She is well-developed and normal weight. HENT: Head: Normocephalic. Cardiovascular: Rate and Rhythm: Normal rate and regular rhythm. Pulses: Normal pulses. Pulmonary: Effort: Pulmonary effort is normal. Breath sounds: Normal breath sounds. Abdominal: General: Bowel sounds are normal. There is no distension. Palpations: Abdomen is soft. Tenderness: There is no abdominal tenderness. There is no guarding or rebound. Musculoskeletal: General: No swelling. Normal range of motion. Right lower leg: No edema. Left lower leg: No edema. Neurological: General: No focal deficit present. Mental Status: She is alert and oriented to person, place, and time. Skin: General: Skin is warm and dry. Psychiatric: Mood and Affect: Mood normal. Behavior: Behavior normal. Thought Content: Thought content normal. Judgment: Judgment normal. Vitals and nursing note reviewed. Exam conducted with a natural resources extension educator present. Vitals: Estimated body mass index is 27.21 kg/m as calculated from the following: Height as of 12/31/18: 5' 4.5 . Weight as of 12/31/18: 161 lb. BP: 120/70 Patient's last menstrual period was 08/28/2023. ASSESSMENT & PLAN ICD-10-CM 1. 36 weeks gestation of Z3A.36 POCT urinalysis dipstick manually resulted 2. Third trimester Z34.93 POCT urinalysis dipstick manually resulted Return OB: Patient presents today for a routine obstetrics appointment. Patient is currently 36w6d . Patient states she is doing well but has complaints of being tired due to current . Patient has verbalizes frequent movement. labor precautions was discussed/given and patient was instructed to perform kick counts three times a day. Orders Placed This Encounter Procedures POCT urinalysis dipstick manually resulted Follow Up: Patient is to return to office in 1 week for routine OB appointment. Documented by Deborah Garcia LPN on behalf of: RUTHY Hernández documented in this encounter [facility] 05-05-2024 History of Present illness Narrative Reason for Appointment: Patient ID: Carmen Marie is a 18 y.o. female who presents for Routine Visit Patient presents today for Return OB appointment. MEDICATIONS Current Outpatient Medications Medication Instructions iron polysaccharides (PROFE) 391.3 mg, Oral, Daily ALLERGIES No Known Allergies PROBLEMS Active Ambulatory Problems Diagnosis Date Noted 17 weeks gestation of 12/31/2023 Screening, , for anatomic survey 12/31/2023 Nausea and vomiting 12/31/2023 Resolved Ambulatory Problems Diagnosis Date Noted No Resolved Ambulatory Problems Past Medical History: Diagnosis Date Asthma ([facility]) 2008 HISTORY PAST MEDICAL HISTORY SOCIAL HISTORY Past Medical History: Diagnosis Date Asthma ([facility]) 2008 Social History Tobacco Use Smoking status: Never Smokeless tobacco: Never Substance Use Topics Alcohol use: Never Drug use: Never FAMILY HISTORY Family History Problem Relation Name Age of Onset No Known Problems Mother Diabetes Father Eric Marie Jr. SURGICAL HISTORY History reviewed. No pertinent surgical history. REVIEW OF SYSTEMS Review of Systems: Review of Systems All other systems reviewed and are negative. OBJECTIVE Objective: Physical Exam Constitutional: Appearance: Normal appearance. She is well-developed. Genitourinary: Vulva normal. Cardiovascular: Rate and Rhythm: Normal rate and regular rhythm. Pulmonary: Effort: Pulmonary effort is normal. Breath sounds: Normal breath sounds. Abdominal: General: Bowel sounds are normal. There is no distension. Palpations: Abdomen is soft. Tenderness: There is no abdominal tenderness. There is no guarding or rebound. Musculoskeletal: General: No swelling. Normal range of motion. Right lower leg: No edema. Left lower leg: No edema. Neurological: Mental Status: She is alert and oriented to person, place, and time. Skin: General: Skin is warm and dry. Psychiatric: Mood and Affect: Mood normal. Behavior: Behavior normal. Vitals and nursing note reviewed. Exam conducted with a natural resources extension educator present. Vitals: Estimated body mass index is 27.21 kg/m as calculated from the following: Height as of 12/31/18: 5' 4.5 . Weight as of 12/31/18: 161 lb. BP: 114/74 Patient's last menstrual period was 08/28/2023. ASSESSMENT & PLAN ICD-10-CM 1. Third trimester Z34.93 POCT urinalysis dipstick manually resulted Strep B DNA probe, amplification Patient is doing well but has complaints of being tired and having maternal discomfort due to . Patient verbalized frequent movement and was instructed to perform kick counts three times per day. labor precautions were given, LARC consent was signed/declined, and GBS was obtained. Cervical check was not performed and pt was advised that she would get checked at next appointment. PVU Orders Placed This Encounter Procedures Strep B DNA probe, amplification POCT urinalysis dipstick manually resulted Follow Up: Patient is to return to office in 1 week for routine OB appointment Documented by Cynthia Randolph LPN on behalf of: RUTHY Hernández documented in this encounter [facility] 09-03-2023 Evaluation + Plan note Diagnostic Tests PendingCBC w/ Auto Diff 09/03/23Basic Metabolic Panel 09/03/23TSH With T4fr Reflex 09/03/23 [facility] [place] 09-02-2023 Hospital Discharge instructions Patient Education 09/02/2023 11:41:06 Health Maintenance, [...] provider. Document Revised: 12/09/2021 Document Reviewed: 12/09/2021 [employer] Patient Education 2022 [employer] Follow Up Care 07/23/2023 13:12:42 With:Danitza COOK MD, FAM Address: When:Within 1 Year(s) [facility] [place] 08-01-2023 Evaluation note Encounter Date Diagnosis Assessment [...] understanding and is agreeable to treatment plan. [facility] Other Evaluation note* Diagnosis Acute pharyngitis, unspecified etiology- Primary Acute viral syndrome documented in this encounter [employer] Work Phone: evaluation noteNo assessment information available [facility] Work Phone: Evaluation note* Diagnosis Third trimester state, incidental [facility] Diagnosis 36 weeks gestation of Third trimester state, incidental [facility]* Diagnosis 37 weeks gestation of Third trimester state, incidental [facility] Narrative No data available for this section [facility] [place] [facility] Discharge instructions* Attachments The following attachments cannot be sent through Care Everywhere. 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 Reason Comments Routine Visit Ordered Prescriptions (unrec ognized section and content) Prescription Sig Dispensed Refills Start Date End Da te ibuprofen (ADVIL;MOTRIN) 400 MG tablet Take 1 tablet by mouth every 6 hours as needed for Pain or Fever 30 tablet 1 03/03/2021 INFORMATION SOURCE (unrecogn ized section and content) DATE CREATED AUTHOR 03/06/2021 [employer] DATE CREATED AUTHOR AUTHOR'S ORGANIZ ATION 08/06/[address] [facility] DATE CREATED AUTHOR AUTHOR'S ORGANIZ ATION 10/09/2023 [facility] DATE CREATED AUTHOR AUTHOR'S ORGANIZ ATION 05/21/2024 [facility] [employer] Care Teams (unrecognized sec tion and content) Team Status: Inactive Member Role Status Dates Ella Enamorado APRN Attending Provider Active Rn On Site Relationship Specialty Start Date End Date Danitza Cook MD [address] [place] [id number] PCP - General 10/22/23 Rn On Site Relationship Specialty Start Date End Date Danitza Cook MD [address] [place] [address] PCP - General 10/22/23 Rn On Site Relationship Specialty Start Date End Date Danitza Cook MD [address] [place] [address] PCP - General 10/22/23 Goals (unrecognized section and content) Goals may [...] BE BASED ON THE PRIMARY CLINICAL RECORDS. [facility] [employer] [facility]. provides no warranty or guarantee of the accuracy or completeness of information in this document.
[2024-05-24 20:42] VITALS: BP 109/63; PULSE 96
[2024-05-24 21:04] LABS: Bilirubin Urine NEGATIVE (NEGATIVE); Blood Urine NEGATIVE (NEGATIVE); Clarity Urine CLEAR (CLEAR); Color Urine LT. YELLOW (YELLOW); Glucose Urine UA NEGATIVE (NEGATIVE); Ketones Urine NEGATIVE (NEGATIVE); Leukocyte Esterase Urine TRACE (NEGATIVE); Nitrite Urine NEGATIVE (NEGATIVE); Protein Urine NEGATIVE (NEG/TRACE)
[2024-05-24 21:07] LABS: Urine Microscopic Indicated YES
[2024-05-24 21:10] LABS: Amnisure NEGATIVE (NEGATIVE); Internal Control Within Normal Limits
[2024-05-24 21:43] LABS: Bacteria Urine LARGE #/HPF (NONE SEEN); Mucus Urine NONE SEEN (NONE SEEN); RBC Urine 0-2 #/HPF (0-2); Squamous Epithelial Cell Urine MANY #/LPF (NONE/RARE)
[2024-05-24 21:44] LABS: Cast Seen? NONE SEEN #/LPF (NONE SEEN); Crystals Seen? None Seen #/HPF (None Seen); Urine Culture Indicated YES
== END 2024-05-24 21:30 | disposition home or self-care (01) ==
PROVIDERS: Admitting Provider Obstetrics & Gynecology; Family Provider Family Medicine; PCP Family Medicine; Visit Provider Obstetrics & Gynecology
DX: Z03.71 Encounter for suspected problem with amniotic cavity and membrane ruled out (principal); Z3A.38 38 weeks gestation of pregnancy
CPT/HCPCS: 59025; 81001; 84112; 87086; G0378; G0379

== ENCOUNTER 2024-05-31 18:07 | Observation (INO) | payer OTHER, MEDICAID, SELFPAY ==
--- OUTSIDE RECORDS SUMMARY | 2024-05-31 18:12 | XMS_ITS | CCD ---
Author Organization [facility] Care Team Providers Care Prop And Scenery Maker Name Role Phone Danitza Cook MD Primary Care Provider [phone] ALEJANDRA LAST Attending Unavailable DANITZA COOK Primary Care Unavailable AUSTIN Enamorado Attending Provider [phone] Ella Enamorado Attending Unavailable Ella Enamorado Admitting Unavailable NO FAMILY, PHYSICIAN Primary Care Unavailable Ella Enamorado Unavailable Danitza COOK Primary Care Physician [phone] Danitza COOK Attending Unavailable Danitza Cook MD Primary Care Provider [phone] BRAYDON LEE Attending Unavailable JESUS, BRAYDON Attending Unavailable JESUS, BRAYDON Attending Unavailable EMPERATRIZ, DENISE Attending Unavailable JESUS, BRAYDON Attending Unavailable EMPERATRIZ, DENISE Attending Unavailable JESUS, BRAYDON Attending Unavailable EMPERATRIZ, DENISE Attending Unavailable EMPERATRIZ, DENISE Attending Unavailable JESUS, BRAYDON Attending Unavailable JESUS, BRAYDON Attending Unavailable Medications Current Medications Medication Drug [...] polysaccharide iron complex 391 mg oral capsule (12 sources) Start: 02-22-2024 End: 02-21-2025 take 1 [...] 09-03-2023 Episodic Other and delivery including normal (8 sources) Third trimester ; Translations: [Encounter for supervision of normal , unspecified, third trimester] 05-05-2024 Episodic Other upper respiratory infections (1 source) Acute pharyngitis; Translations: [Acute pharyngitis, unspecified] Episodic Residual codes; unclassified (2 sources) Gestation period, 36 weeks; Translations: [36 weeks gestation of ] 05-12-2024 Episodic Residual codes; unclassified (4 sources) Gestation period, 37 weeks; Translations: [37 [...] Documented Da te Episodic/Chronic Nausea and vomiting (12 sources) Nausea and vomiting; Translations: [Nausea with vomiting, unspecified] Onset: 12-31-2023 12-31-2023 Episodic Other screening for suspected conditions (not mental disorders or infectious disease) (12 sources) Patient encounter status; Translations: [Encounter for other specified screening] Onset: 12-31-2023 12-31-2023 Episodic Residual codes; unclassified (12 sources) Gestation period, 17 weeks; Translations: [17 weeks gestation of ] Onset: 12-31-2023 12-31-2023 Episodic Results Test Name Value Interpretation Reference Range Facil ity Urinalysis macro (dipstick) panel (U)on 05-26-2024 Bilirubin, UA Negative Negative - 4(70) +++ mg/dL [facility] Blood, UA Negative Negative - 50 Rodolfo/mcL [facility] Clarity, UA Clear [facility] re Color, UA Yellow [facility] Glucose, UA Negative Negative - 1999(110) ++++ mg/dL [facility] Interpretation and review of laboratory results Abnormal [facility] Ketones, UA Negative Negative - 160(16) ++++ mg/dL [facility] Leukocytes, UA Trace Negative - 500+++ Julian/mcL [facility] Nitrite, UA Negative Negative - Positive [facility] pH, UA 7.5 5 - 9 [facility] Protein, UA Negative Negative - 1999(20) ++++ mg/dL [facility] Spec Grav, UA 1.02 1 - 1.03 [facility] Urobilinogen, UA 1.0 0.2 - 12 mg/dL [facility] UA (CLEAN/CATCH) 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 YELLOW YELLOW [facility] GLUCOSE URINE UA Negative NEGATIVE mg/dL [facility] Interpretation and review of laboratory results Abnormal [facility] Ketones Ql (U) Negative NEGATIVE mg/dL [facility] Leukocyte esterase Test strip Ql (U) TRACE Abnormal NEGATIVE [facility] NITRITE URINE Negative NEGATIVE [facility] pH (U) 6.0 [pH] 5.0 - 9.0 [facility] PROTEIN URINE Negative NEG/TRACE mg/dL [facility] SPECIFIC GRAVITY URINE 1.020 1.005 - 1.025 [facility] URINE MICROSCOPIC INDICATED YES [facility] UROBILINOGEN URINE 1.0 EU/dL 0.2 - 1.0 EU/dL N [facility] Urinalysis macro (dipstick) panel (U)on 05-19-2024 Bilirubin, UA Negative Negative - 4(70) +++ mg/dL [facility] Blood, UA Negative Negative - 50 Rodolfo/mcL [facility] Clarity, UA Clear [facility] Color, UA Yellow [facility] Glucose, UA Negative Negative - 1999(110) ++++ mg/dL [facility] Interpretation and review of laboratory results Abnormal [facility] Ketones, UA Negative Negative - 160(16) ++++ mg/dL [facility] Leukocytes, UA Trace Negative - 500+++ Julian/mcL [facility] Nitrite, UA Negative Negative - Positive [facility] pH, UA 6.5 5 - 9 [facility] Protein, UA Negative Negative - 1999(20) ++++ mg/dL [facility] Spec Grav, UA 1.025 1 - 1.03 [facility] Urobilinogen, UA 0.2 0.2 - 12 mg/dL [facility] Urinalysis macro (dipstick) panel (U)on 05-12-2024 Bilirubin, UA Negative Negative - 4(70) +++ mg/dL [facility] Blood, UA Negative Negative - 50 Rodolfo/mcL [facility] Clarity, UA Clear [facility] Color, UA Yudi [facility] Glucose, UA Negative Negative - 1999(110) ++++ mg/dL [facility] Interpretation and review of laboratory results Normal [facility] Ketones, UA Negative Negative - 160(16) ++++ mg/dL [facility] Leukocytes, UA Negative Negative - 500+++ Julian/mcL [facility] Nitrite, UA Negative Negative - Positive [facility] pH, UA 7.0 5 - 9 [facility] Protein, UA Negative Negative - 1999(20) ++++ mg/dL [facility] Spec Grav, UA 1.030 1 - 1.03 [facility] Urobilinogen, UA 1.0 0.2 - 12 mg/dL [facility] Urinalysis macro (dipstick) panel (U)on 05-05-2024 Bilirubin, UA Negative Negative - 4(70) +++ mg/dL [facility] Blood, UA Negative Negative - 50 Rodolfo/mcL [facility] Clarity, UA Clear [facility] Color, UA Yellow [facility] Glucose, UA Negative Negative - 1999(110) ++++ mg/dL [facility] Interpretation and review of laboratory results Normal [facility] Ketones, UA Negative Negative - 160(16) ++++ mg/dL [facility] Leukocytes, UA Negative Negative - 500+++ Julian/mcL [facility] Nitrite, UA Negative Negative - Positive [facility] pH, UA 5.5 5 - 9 [facility] Protein, UA Negative Negative - 1999(20) ++++ mg/dL [facility] Spec Grav, UA 1.020 1 - 1.03 [facility] Urobilinogen, UA 1.0 0.2 - 12 mg/dL [facility] Ambulatory Visit Summaryon 0 09-03-2023 Ambulatory Visit Summary CARMEN MARIE Y :2005 Visit Date:09/03/2023 Ambulatory Visit Instructions Your [...] transmitted infections (more content not included)... Normal [facility] Family Medicine Office/Clini c Noteon 09-03-2023 Family [...] . She has a late lunch at [employer]. Usually something caffeinated as well as a sweet. She cooks meat, potatoes, for dinner meals. She stays well hydrated reasonably well. She drinks [employer] type combination tea and lemonade. She denies [...] are clear. Oropharynx pink and moist. Excellent salt river dentition. Without thyromegaly. Clear bilaterally. Regular rate [...] tab(s), Refills(s) 0, Pharmacy: [facility], 163, cm, 10/18/21 8:35:00 EDT, Height/Length Dosing, 73, kg, 10/18/21 8:35:00 EDT, Weight Dosing Portions of this record may have been created with voice recognition artificial intelligence software, specifically Ikaria, Yekra and or [employer]an[employer]. Substitutions may have occurred due to the inherent limitations of voice recognition and artificial intelligence software. Follow-up With When Contact Information Danitza COOK MD, FAM In 1 year Additional Instructions: Patient Education Health Maintenance, Female Problem List/Past Medical History Ongoing BMI 26.0-26.9,adult Encounter for well (more content not included)... Normal [facility] Comment on above: Result Comment: Elec tronically [...] in y (more content not included)... Normal [facility] XR foot LT min 3V*on 023 XR foot LT min 3V* [facility] Main [place] [address] [place] [address] XRay Report Signed Patient: Carmen Marie MR#: [id number] 2 : 2005 Acct:[id number] Age/Sex: 18 / F ADM Date: 08/01/23 [facility]: Type: [facility] Attending Dr: Ella Enamorado SHOP LEAD Copies to: Ella Enamorado APRN Ordering Provider: [...] Marek Plascencia M.D.08/01/2023 1:00 PM Dictation Location: [place] [address] Transcribed By: [facility] 08/01/23 1300 Dictated By: Marek Plascencia DO 08/01/23 1259 Signed By: 08/01/23 1300 [facility] Group A Strep DNAon 03-05-20 21 Group A Strep DNA Specimen Description .THROAT SWAB Special Requests NOT REPORTED Direct Exam Negative: Specimen negative for Streptococcus pyogenes by DNA amplification. Report Status FINAL 03/05/2021 [facility] Comment on above: Performed By: #### G ASDNA #### [facility] [address] [place] [address] Sound Editor: Lonny Aquino MD [facility] [address] [place] [address] Sound Editor: Can Lala MD [id number] 03-04-2021 SARS-CoV-2 (COVID-19) RNA SKINNY+probe Ql (Unsp spec) Not detected Normal NOTDET [facility] Comment on above: Result Comment: Rapid NAAT: [...] management decisions. Fact sheet for Healthcare Providers: https://www.fda.gov/media/988448/download Fact sheet for Patients: https://www.fda.gov/media/310236/download Methodology: Isothermal Nucleic Acid Amplification Performed By: #### C OVRB #### [facility] [address] [place] [address] Sound Editor: Can Lala MD COVID-19, RapidOrdered By: Georges Last on 03-03-2021 SARS-CoV-2 (COVID-19) RNA SKINNY+probe Ql (Unsp spec) Not detected Not Detected [facility] [place]. com. cn Phone: Comment on above: Rapid NAAT: The [...] management decisions. Fact sheet for Healthcare Providers: https://www.fda.gov/media/557642/download Fact sheet for Patients: https://www.fda.gov/media/283282/download Methodology: Isothermal Nucleic Acid Amplification Specimen Description .NASOPHARYNGEAL SWAB [facility] Phone: [employer] Phone: Strep Gr A Direct Agon 03-03 Strep Gr A Direct Ag Specimen Descriptio n .THROAT Special Requests NOT REPORTED Direct Exam Rapid Strep A negative. A negative Rapid Group A Strep Screen result does not rule out the possibility of Group A Streptococci in the specimen. The [employer] recommends confirmation testing. Therefore, a Group A Strep DNA test will be performed. Report Status FINAL 03/03/2021 Normal [facility] Comment on above: Performed By: #### S GPA #### [facility] [address] [place] [address] Sound Editor: Can Lala MD Strep Screen Group A ThroatO rdered By: Alejandra Last on 03-03-2021 S. pyogenes Ag IA Ql (Unsp spec) Rapid Strep A negative. A negative Rapid Group A Strep Screen result does not rule out the possibility of Group A Streptococci in the specimen. The [employer] recommends confirmation testing. Therefore, a Group A Strep DNA test will be performed. [employer] Phone: Special Requests NOT REPORTED [employer] Phone: Specimen Description .THROAT [employer] Phone: [facility] Phone: Vital Signs Date Time Vital Sign Value Performing Clinician Facility 05-26-2024 10:35-0400 Body weight 91.17 kg Braydon Jesus DO Work Phone: [facility] 05-26-2024 10:35-0400 Diastolic blood pressure 74 mm[Hg] Braydon Jesus DO Work Phone: [facility] 05-26-2024 10:35-0400 Systolic blood pressure 122 mm[Hg] Braydon Jesus DO Work Phone: [facility] 05-19-2024 10:02-0400 Body weight 90.27 kg Braydon Jesus DO Work Phone: [facility] 05-19-2024 10:02-0400 Diastolic blood pressure 70 mm[Hg] Braydon Jesus DO Work Phone: [facility] 05-19-2024 10:02-0400 Systolic blood pressure 120 mm[Hg] Braydon Jesus DO Work Phone: [facility] 05-12-2024 15:46-0400 Body weight 89.81 kg Denise BLISS Work Phone: [facility] 05-12-2024 15:46-0400 Diastolic blood pressure 70 mm[Hg] Denise Awan PA Work Phone: [facility] 05-12-2024 15:46-0400 Systolic blood pressure 120 mm[Hg] Denise Awan PA Work Phone: [facility] 05-05-2024 09:11-0400 Body weight 88 kg Denise Awan PA Work Phone: [facility] 05-05-2024 09:11-0400 Diastolic blood pressure 74 mm[Hg] Denise Awan PA Work Phone: [facility] 05-05-2024 09:11-0400 Systolic blood pressure 114 mm[Hg] Denise Awan PA Work Phone: [facility] 09-03-2023 13:19-0500 Blood Pressure Location Danitza COOK [facility] [place] 09-03-2023 13:19-0500 Diastolic blood pressure 70 mm[Hg] Danitza COOK [facility] 09-03-2023 13:19-0500 Heart rate 67 /min Danitza COOK [facility] 09-03-2023 13:19-0500 Respiratory rate 16 /min Danitza COOK [facility] 09-03-2023 13:19-0500 SaO2% (BldA) [Mass fraction] 100 % Danitza COOK [facility] 09-03-2023 13:19-0500 Systolic blood pressure 100 mm[Hg] Danitza COOK [facility] 08-01-2023 14:00-0500 Body height 165.1 cm Ella Enamorado Other [facility] [employer] Other 08-01-2023 14:00-0500 Body mass index (BMI) [Ratio] 25.79 kg/m2 Ella Enamorado Other [facility] [employer] Other 08-01-2023 14:00-0500 Body temperature 99.5 [degF] Ella Enamorado Other [employer] Other 08-01-2023 14:00-0500 Body weight 70.31 kg Ella Enamorado Other [employer] Other 08-01-2023 14:00-0500 Respiratory rate 18 /min Ella Enamorado Other [employer] Other 08-01-2023 14:00-0500 SaO2% (BldA) [Mass fraction] 98 % Ella Enamorado Other [facility] [employer] Other 03-03-2021 21:26-0400 Body height 165.1 cm Alejandra Last MD Work Phone: [employer] Work Phone: 03-03-2021 21:26-0400 Body mass index (BMI) [Ratio] 27.12 kg/m2 Alejandra Last MD Work Phone: [employer] Work Phone: 03-03-2021 21:26-0400 Body temperature 100.71 [degF] Alejandra Last MD Work Phone: [employer] Work Phone: 03-03-2021 21:26-0400 Body weight 73.94 kg Alejandra Last MD Work Phone: [employer] Work Phone: 03-03-2021 21:26-0400 Diastolic blood pressure 62 mm[Hg] Alejandra Last MD Work Phone: [employer] Work Phone: 03-03-2021 21:26-0400 Heart rate 96 /min Alejandra Last MD Work Phone: [employer] Work Phone: 03-03-2021 21:26-0400 Respiratory rate 16 /min Alejandra Last MD Work Phone: [employer] Work Phone: 03-03-2021 21:26-0400 SaO2% (BldA) [Mass fraction] 98 % Alejandra Last MD Work Phone: [employer] Work Phone: 03-03-2021 21:26-0400 Systolic blood pressure 128 mm[Hg] Alejandra Last MD Work Phone: [employer] Work Phone: Encounters Encounter Date Encounter Type Care Provider Facility Start: 05-26-2024 End: 05-26-2024 flow sheet Braydon Jesus DO Work Phone: [facility] Comment on above: Third trimester preg jessica; 37 weeks gestation of Start: 05-26-2024 End: 05-26-2024 ambulatory BRAYDON JESUS Not Available Start: 05-24-2024 End: 05-24-2024 Clinisync Result Encounter Braydon Jesus DO Work Phone: [facility] Unsolicited Start: 05-24-2024 End: 05-24-2024 Clinisync Result Encounter Braydon Jesus DO Work Phone: [facility] Unsolicited Start: 05-19-2024 End: 05-19-2024 Bamboo flowsheet Braydon Jesus DO Work Phone: [facility] Start: 05-19-2024 End: 05-19-2024 Bamboo flowsheet Braydon Jesus DO Work Phone: [facility] Start: 05-19-2024 End: 05-19-2024 flow sheet Braydon Jesus DO Work Phone: [facility] Comment on above: 37 weeks gestation o f ; Third trimester Start: 05-19-2024 End: 05-19-2024 ambulatory BRAYDON JESUS Not Available Start: 05-12-2024 End: 05-12-2024 ambulatory DENISE AWAN Not Available Start: 05-12-2024 End: 05-12-2024 flow sheet Denise BLISS Work Phone: [facility] Comment on above: 36 weeks gestation o f ; Third trimester Start: 05-12-2024 End: 05-12-2024 Bamboo flowsheet Denise BLISS Work Phone: [facility] Start: 05-12-2024 End: 05-12-2024 Bamboo flowsheet Denise BLISS Work Phone: [facility] Start: 05-05-2024 End: 05-05-2024 Bamboo flowsheet Denise BLISS Work Phone: [facility] Start: 05-05-2024 End: 05-05-2024 Bamboo flowsheet Denise BLISS Work Phone: [facility] Start: 05-05-2024 End: 05-05-2024 ambulatory DENISE AWAN Not Available Start: 05-05-2024 End: 05-05-2024 flow sheet Denise BLISS Work Phone: [facility] Comment on above: Third trimester preg jessica Start: 04-21-2024 End: 04-21-2024 ambulatory BRAYDON JESSU Not Available Start: 04-07-2024 End: 04-07-2024 ambulatory [...] medical examination with abnormal findings Danitza COOK [facility] [place] Start: 09-03-2023 End: 09-03-2023 Patient encounter procedure Danitza COOK [facility] [place] Start: 08-01-2023 End: 08-01-2023 ambulatory Ella Enamorado Facility[facility] Start: 08-01-2023 Office outpatient ne w 20 minutes Ella Enamorado [facility] Start: 08-01-2023 End: 08-01-2023 ambulatory SHOP LEAD Ella Munozhn Work Phone: [facility] Work Phone: Start: 08-01-2023 End: 08-01-2023 Patient encounter procedure SHOP LEAD Ella Enamorado Work Phone: [facility] [place] Work Phone: Start: 03-03-2021 End: 03-04-2021 Emergency department patient visit ALEJANDRA LAST [facility] Start: 03-03-2021 End: 03-03-2021 Emergency department patient visit Alejandra Last MD Work Phone: [facility] ED Comment on above: Acute pharyngitis, u nspecified etiology (Primary Dx); Acute viral syndrome Procedures Date Procedure Procedure Detail Performing Clinician Start: 05-26-2024 Urnls dip stick/tabl et rgnt non-auto w/o micrscp Braydon Jesus DO Work Phone: Start: 05-24-2024 [facility] UA (CLEAN/CATCH) 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 Braydon Jesus DO Work Phone: Start: 05-19-2024 Urnls dip stick/tabl et rgnt non-auto w/o micrscp Braydon Jesus DO Work Phone: Start: 05-12-2024 Urnls dip stick/tabl et rgnt non-auto w/o micrscp Denise BLISS Work Phone: Start: 05-05-2024 Urnls dip stick/tabl et rgnt non-auto w/o micrscp Denise BLISS Work Phone: Start: 08-01-2023 X-ray of left foot SHOP LEAD Ella Enamorado Work Phone: Start: 03-03-2021 COVID-19, RAPID Alejandra Last MD Work Phone: Start: 03-03-2021 Iaadiadoo streptococ cus group a Alejandra Last MD Work Phone: Tonsillectomy and adenoidectomy Danitza COOK Plan of Treatment Date Care Activity Detail Author Start: 06-02-2024 End: 06-02-2024 Patient encounter procedure 06/02/2024 1:50 PM EDT Routine [facility] [address] [address] Denise Awan PA [address] [place] [place] [address] [facility] Start: 06-02-2024 End: 06-02-2024 Professional / ancillary services management 06/02/2024 1:00 PM EDT Ancillary Procedure [facility] [address] [place] [address] [facility] Start: 05-26-2024 End: 05-26-2024 Patient encounter procedure 05/26/2024 10:30 AM EDT Routine [facility] [address] [place] [address] Braydon Lee DO [address] [place], [place] [id number] [facility] Start: 05-19-2024 End: 05-19-2024 Patient encounter procedure [facility] Comment on above: Arrived Start: 05-12-2024 End: 05-12-2024 Patient encounter procedure 05/12/2024 3:40 PM EDT Routine [facility] [address] [place] [address] Denise Awan, PA [address] [place], [place] [id number] [facility] Start: 05-05-2024 End: 10-03-2025 Strep B DNA probe, amplification Strep B DNA probe, amplification Lab Routine Third trimester Expected: 05/05/2024 (Approximate), Expires: 05/05/2025 [facility] Work Phone: Comment on above: Expected: 05/05/2024 (Approximate), Expires: 05/05/2025 Start: 04-03-2024 Influenza vaccination Influenza Vacc ine (#1) [facility] Start: 04-03-2021 Influenza vaccination Flu vaccine (# 1) [facility] [employer] Phone: Start: 2019 Meningococcal (ACWY) vaccine (1 - 2-dose series) Meningococcal (ACWY) vaccine (1 - 2-dose series) [facility] [employer] Phone: Start: 2019 Screening for Chlamy rika trachomatis Chlamydia screen [facility] [employer] Phone: Start: 2018 HIV screening HIV screen [facility] Work Phone: Start: 2015 COVID-19 Vaccine (1) COVID-19 Vaccin e (1) [facility] [employer] Phone: Start: 2014 HPV vaccine (1 - 2-d ose series) HPV vaccine (1 - 2-dose series) [facility] [employer] Phone: Start: 2010 DTaP/Tdap/Td vaccine (1 - Tdap) DTaP/Tdap/Td vaccine (1 - Tdap) [facility] [employer] Phone: Start: 2004 Hepatitis A vaccine (1 of 2 - 2-dose series) Hepatitis A vaccine (1 of 2 - 2-dose series) [facility] [employer] Phone: Start: 2004 Measles,Mumps,Rubell a (MMR) vaccine (1 of 2 - Standard series) Measles,Mumps,Rubella (MMR) vaccine (1 of 2 - Standard series) [facility] [employer] Phone: Start: 2004 Varicella vaccine (1 of 2 - 2-dose childhood series) Varicella vaccine (1 of 2 - 2-dose childhood series) [employer] Phone: Start: 2003 Polio vaccine (1 of 3 - 4-dose series) Polio vaccine (1 of 3 - 4-dose series) [employer] Phone: Start: 2003 Hepatitis B vaccine (1 of 3 - 3-dose primary series) Hepatitis B vaccine (1 of 3 - 3-dose primary series) [employer] Phone: End: 03-03-2021 Strep A DNA probe, amplification Strep A DNA probe, amplification Lab Routine Once for 1 Occurrences starting 03/03/2021 until 03/03/2021 [employer] Phone: Comment on above: Once for 1 Occurrenc es starting 03/03/2021 until 03/03/2021 Strep A DNA probe, amplification Strep A DNA probe, amplification Lab Routine 03/03/2021 9:46 PM EDT [employer] Phone: Immunizations Immunization Date Immunization Notes Care Provider Fa cility 08-07-2021 SARS-CoV-2 (COVID-19 ) Ad26 vaccine, recombinant Danitza COOK [facility] [place] 01-08-2021 SARS-CoV-2 (COVID-19 ) mRNA BNT-162b2 Loteda [facility] [place] Comment on above: Result Comment: sharin @ ra/w 12-18-2020 SARS-CoV-2 (COVID-19 ) mRNA BNT-162b2 [employer] [facility] [place] Comment on above: Result Comment: sharin @ ra/w 02-24-2020 meningococcal polysaccharide (groups A, C, Y and W-135) diphtheria toxoid conjugate vaccine (MCV4P) [facility] 09-[facility]-2016 HPV, unspecified formulation [employer] COOK [facility] 05-12-2016 HPV, unspecified formulation Danitza COOK [facility] 03-11-2016 diphtheria, tetanus toxoids and acellular pertussis vaccine Danitza COOK [facility] 03-11-2016 HPV, unspecified formulation [employer] COOK [facility] 03-11-2016 meningococcal ACWY vaccine, unspecified formulation [employer] CHRISTIAN [facility] 01-02-2009 Diphtheria, tetanus toxoids and acellular pertussis vaccine, and poliovirus vaccine, inactivated Christike COOK [facility] 01-02-2009 varicella virus vaccine Danitza COOK [facility] 05-29-2006 influenza virus vaccine, unspecified formulation Denise BLISS Work Phone: [facility] 10-31-2005 measles, mumps and rubella virus vaccine Danitza COOK [facility] 08-12-2004 diphtheria, tetanus toxoids and acellular pertussis vaccine Danitza COOK [facility] 08-12-2004 varicella virus vaccine Danitza COOK [facility] 05-14-2004 haemophilus influenz ae type b vaccine, PRP-T conjugate Danitza COOK [facility] 05-10-2004 measles, mumps and rubella virus vaccine Danitza COOK [facility] 2003 DTaP-hepatitis B and poliovirus vaccine Danitza [employer] [facility] 2003 haemophilus influenz ae type b vaccine, PRP-T conjugate [employer] [facility] 2003 diphtheria, tetanus toxoids and acellular pertussis vaccine [employer] [facility] 2003 haemophilus influenz ae type b vaccine, PRP-T conjugate [employer] [facility] 2003 poliovirus vaccine, unspecified formulation [employer] [facility] 2003 DTaP-hepatitis B and poliovirus vaccine [employer] [facility] 2003 haemophilus influenz ae type b vaccine, PRP-T conjugate [employer] [facility] 2003 hepatitis B vaccine, pediatric or pediatric/adolescent dosage [employer] [facility] [place] NEGATED: Highlighted row has not occurred!09-03-2023 influenza virus vaccine, unspecified formulation [employer] [facility] [place] NEGATED: Highlighted row has not occurred!10-18-2021 influenza virus vaccine, unspecified formulation [employer] [facility] [place] NEGATED: Highlighted row has not occurred!02-24-2020 influenza virus vaccine, unspecified formulation [employer] [facility] [place] Payers Date Payer Category Payer Medicaid [id number] 2024 Medicaid [id number] 2023 Private Health Insurance [employer] [id number] 2023 Unknown [employer] [id number] 2023-Present [address] [place] [address] [id number]. [id number] 2023 Unknown [id number] 2023 Self-pay 2023 Unknown [id number] 2019 Unknown [id number] [id number]. 7.3.434020.315 2018 Unknown [id number] 1.2.840.586161.1.13.239.2. 7.3.867425.315 2003 Unknown [id number] 2.16.840.1.779236.3.579.2. 727 2003 Unknown [id number] 2.16.840.1.018081.3.579.2. 1259 2003 Unknown [id number] 2.16.840.1.655122.3.579.2. 1259 2003 Unknown [id number] 2.16.840.1.987898.3.579.2. 1259 2003 Unknown [id number] 2.16.840.1.801783.3.579.2. 1259 2003 Unknown [id number] 2.16.840.1.751119.3.579.2. 1259 2003 Unknown [id number] 2.16.840.1.057797.3.579.2. 1259 2003 Unknown [id number] 2.16.840.1.746155.3.579.2. 1259 2003 Unknown [id number] 2.16.840.1.464390.3.579.2. 1259 2003 Unknown [id number] 2.16.840.1.507986.3.579.2. 1259 2003 Unknown [id number] 2.16.840.1.845866.3.579.2. 1259 2003 Unknown [id number] 2.16.840.1.821341.3.579.2. 1259 2003 Unknown [id number] 2.16.840.1.057913.3.579.2. 1259 1982 Unknown [id number] 2.16.840.1.462104.3.579.2. 174 Unknown [id number] 2.16.840.1.119176.3.579.2. 531 Social History Date Type Detail Facility Start: 03-03-2021 End: 04-21-2024 Tobacco smoking status [facility] Never smoker [facility] [place] Start: 03-03-2021 End: 04-21-2024 Tobacco use and exposure Never used [employer] Start: 03-03-2021 End: 05-26-2024 Alcohol intake Lifetime non-drinker (finding) [employer] Phone: Start: 03-03-2021 History SDOH Alcohol Frequency 1 [employer] Phone: Start: 2003 Sex Assigned At Not on file M [employer] Phone: Exposure to SARS-CoV -2 (event) [facility] Sex Assigned At Female F [facility] Start: 04-21-2024 Sex Assigned At F [facility] Tobacco [facility] status [facility] [place] Start: 04-21-2024 History of Social function [facility] Start: 09-11-2023 [facility] Functional Status Date Assessment Result [facility]03[facility]23 [facility]-01-2023 to 05-26-2024 Maya Matthews LPN - 05/26/2024 10:30 AM RUTHY Arellano - 05/19/2024 10:00 AM RUTHY Arellano - 05/12/2024 3:40 PM RUTHY Arellano - 05/05/2024 8:30 AM EDT Note Date & Type Note Facility 05-26-2024 History of Present illness Narrative Reason for [...] Problems Past Medical History: Diagnosis Date Asthma ([facility]) 2008 HISTORY PAST MEDICAL HISTORY SOCIAL HISTORY Past Medical History: Diagnosis Date Asthma ([facility]) 2008 Social History Tobacco Use Smoking [...] nursing note reviewed. Exam conducted with a honeycomb decapper present. Vitals: Estimated body mass index is 27.21 kg/m as calculated from the following: Height as of 12/31/18: 5' 4.5 . Weight as of 12/31/18: 161 lb. BP: 122/74 Patient's last menstrual period was 08/28/2023. ASSESSMENT & PLAN ICD-10-CM 1. Third trimester Z34.93 POCT urinalysis dipstick manually resulted 2. 37 weeks gestation of Z3A.37 Patient presents today for a routine obstetrics appointment. Patient is currently 38w6d with a Estimated Date of Delivery: 06/03/24. Patient desires to have IOL on 06/10/24 and will need to obtain NST/BPP--on Thursday06/06/24. Patient to return to clinic in 1 week for routine OB appointment. Documented by Maya Matthews LPN on behalf of: Braydon Lee DO documented in this encounter [facility] 05-19-2024 History of Present illness Narrative Reason [...] Problems Past Medical History: Diagnosis Date Asthma ([facility]) 2009 HISTORY PAST MEDICAL HISTORY SOCIAL HISTORY Past Medical History: Diagnosis Date Asthma ([facility]) 2008 Social History Tobacco Use Smoking [...] for routine OB appointment. Documented by RUTHY Hernández documented in this encounter [facility] 05-12-2024 History of Present illness Narrative Reason [...] Problems Past Medical History: Diagnosis Date Asthma ([facility]) 2008 HISTORY PAST MEDICAL HISTORY SOCIAL HISTORY Past Medical History: Diagnosis Date Asthma ([facility]) 2008 Social History Tobacco Use Smoking [...] nursing note reviewed. Exam conducted with a honeycomb decapper present. Vitals: Estimated body mass index is [...] of: RUTHY Hernández documented in this encounter [facility] 05-05-2024 History of Present illness Narrative Reason [...] Problems Past Medical History: Diagnosis Date Asthma ([facility]) 2008 HISTORY PAST MEDICAL HISTORY SOCIAL HISTORY Past Medical History: Diagnosis Date Asthma ([facility]) 2008 Social History Tobacco Use Smoking [...] nursing note reviewed. Exam conducted with a honeycomb decapper present. Vitals: Estimated body mass index is [...] of: RUTHY Hernández documented in this encounter [facility] 09-03-2023 Evaluation + Plan note Diagnostic Tests PendingCBC w/ Auto Diff 09/03/23Basic Metabolic Panel 09/03/23TSH With T4fr Reflex 09/03/23 [facility] [place] 09-02-2023 Hospital Discharge instructions Patient Education 09/02/2023 [...] provider. Document Revised: 12/09/2021 Document Reviewed: 12/09/2021 [employer] Patient Education 2022 [employer]. Follow Up Care 07/23/2023 13:12:42 With:CHRISTIAN LAGUNA, SHWETHA Mabry Address: When:Within 1 Year(s) [facility] [place] 08-01-2023 Evaluation note Encounter Date Diagnosis Assessment Notes Jul, Injury of left foot, initial encounter (ICD-10 - S99.922A) Jul, Contusion of left foot, initial encounter (ICD-10 - S90.32XA) RICE (rest, ice, compress, elevate) material was printed Images and report reviewed. No acute bony injury. Discussed findings with patinet. Soft top shoe provided to patient to wear for comfort while healing. RICE. Tylenol/Motrin. Follow up with PCP or podiatry in 1 week if no improvement, sooner if sx change or worsen. Patient verbalizes understanding and is agreeable to treatment plan. [employer] Other Evaluation note* Diagnosis Acute pharyngitis, unspecified etiology- Primary Acute viral syndrome [facility] Work Phone: evaluation noteNo assessment information available [facility] Work Phone: Evaluation note* Diagnosis Third trimester state, incidental [facility] Diagnosis 36 weeks gestation of Third trimester state, incidental [facility] Diagnosis 37 weeks gestation of Third trimester state, incidental [facility]* Diagnosis Third trimester state, incidental 37 weeks gestation of documented in this encounter [facility] Narrative No data available for this section [facility] Discharge instructions* Attachments The following attachments cannot be sent through Care Everywhere. 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 Summary Purpose Family History No Family History [...] DATE CREATED AUTHOR AUTHOR'S ORGANIZ ATION 08/06/2023 [facility] DATE CREATED AUTHOR AUTHOR'S ORGANIZ ATION 10/09/2023 Sebastian Chan [facility] DATE CREATED AUTHOR AUTHOR'S ORGANIZ ATION 05/27/2024 [facility] EPIC Care Teams (unrecognized sec tion and content) Team Status: Inactive Member Role Status Dates Ella Enamorado APRN Attending Provider Active 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 Start Date End Date Danitza Cook MD [address] [place] [address] PCP - General 10/22/23 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 Start Date End Date Danitza Cook MD [address] [place] [address] PCP - General 10/22/23 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 [facility] provides no warranty or guarantee of the accuracy or completeness of information in this document.
[2024-05-31 18:17] VITALS: BP 131/73; PULSE 98
== END 2024-05-31 19:39 | disposition home or self-care (01) ==
LOC: FBC 18:08
PROVIDERS: Admitting Provider Obstetrics & Gynecology; Family Provider Family Medicine; PCP Family Medicine; Visit Provider Obstetrics & Gynecology
DX: O36.8130 Decreased fetal movements, third trimester, not applicable or unspecified (principal); Z3A.39 39 weeks gestation of pregnancy
CPT/HCPCS: 59025; G0378; G0379

== ENCOUNTER 2024-06-02 12:58 | Outpatient (OUT) | payer OTHER, MEDICAID, SELFPAY ==
--- NOTE | 2024-06-02 13:00 | US_ITS ---
[address] [address] Patient Name: ISIAH MARIE MRN: [facility]:[id number] date: 2005 Sex: F Assigned Patient Location: [facility] Current Patient Location: [facility] Accession/Order Number: [id number] Exam Date: 06/02/2024 13:01 Report Date: 06/02/2024 13:52 At the request of: BRAYDON GOODEN Procedure: US OB growth EXAMINATION: US OB growth HISTORY: LARGE FOR GESTATIONAL AGE COMPARISON: No relevant comparison available. TECHNIQUE: Transabdominal sonographic examination was performed for obstetrical and evaluation. FINDINGS: Number: 1 Heart Rate: 149 bpm H.B. /min Amniotic Fluid Volume: 13.6 cm. Largest fluid pocket 5.0 cm Placental Location: ANTERIOR BIOMETRY: BPD: 9.52 cm; 38 weeks 6 days; 65.70 % HC: 34.95 cm; 40 weeks 4 days; 65 % AC: 36.43 cm; 40 weeks 2 days; 85.40 % FL: 7.72 cm; 39 weeks 3 days; 51.60 % EFW:3883.57 g; 78.60 %, 8 lbs. 12 oz. FL/AC: 21.19 FL/BPD: 81.09 HC/AC: 0.96 GESTATIONAL AGE: Age by EDC: 39 weeks 6 days LOUIE by EDC: 2024-06-03 Age by current US: 39 weeks 6 days LOUIE by current US: 2024-06-03 US/US OB growth IMPRESSION: Normal interval growth *Reference: [facility] Practice Guideline for the performance of Obstetric Ultrasound Examinations, May 03, 2007. Electronically authenticated by: KEISHA LYONS Date: 06/02/2024 13:52
--- OUTSIDE RECORDS SUMMARY | 2024-06-02 13:19 | XMS_ITS | CCD ---
Author Organization [facility] Care Team Providers Care Shipper And Receiving Name Role Phone Danitza Cook MD Primary Care Provider 1( [phone] ALEJANDRA LAST Attending Unavailable DANITZA COOK Primary Care Unavailable AUSTIN Enamorado Attending Provider Ella Enamorado Attending Unavailable Ella Enamorado Admitting Unavailable NO FAMILY, PHYSICIAN Primary Care Unavailable Ella Enamorado Unavailable Danitza COOK Primary Care Physician [phone] Danitza COOK Attending Unavailable Danitza Cook MD Primary Care Provider JESUSBRAYDON HNA Attending Unavailable JESUS, BRAYDON Attending Unavailable JESUS, [...] UA Negative Negative - 4(70) +++ mg/dL [facility] Blood, UA Negative Negative - 50 Rodolfo/mcL [facility] Clarity, UA Clear [facility] re Color, UA Yellow [facility] Glucose, UA Negative Negative - 1999(110) ++++ mg/dL [facility] Interpretation and review of laboratory results Abnormal [facility] Ketones, UA Negative Negative - 160(16) ++++ mg/dL [facility] Leukocytes, UA Trace Negative - 500+++ Julian/mcL [facility] Nitrite, UA Negative Negative - Positive [facility] pH, UA 7.5 5 - 9 [facility] Protein, UA Negative Negative - 1999(20) ++++ mg/dL [facility] Spec Grav, UA 1.02 1 - 1.03 [facility] care Urobilinogen, UA 1.0 0.2 - 12 mg/dL [facility] UA (CLEAN/CATCH) BILL POSTER INSTALLER/CORTNEY RO IF IND.on 05-24-2024 BILIRUBIN URINE Negative NEGATIVE [facility] BLOOD URINE Negative NEGATIVE [facility] Clarity (U) CLEAR CLEAR [facility] Color (U) LT. YELLOW YELLOW [facility] GLUCOSE URINE UA Negative NEGATIVE mg/dL [facility] Interpretation and review of laboratory results Abnormal [facility] Ketones Ql (U) Negative NEGATIVE mg/dL [facility] Leukocyte esterase Test strip Ql (U) TRACE Abnormal NEGATIVE [facility] NITRITE URINE Negative NEGATIVE [facility] care pH (U) 6.0 [pH] 5.0 - 9.0 [facility] PROTEIN URINE Negative NEG/TRACE mg/dL [facility] SPECIFIC GRAVITY URINE 1.020 1.005 - 1.025 [facility] URINE MICROSCOPIC INDICATED YES [facility] UROBILINOGEN URINE 1.0 EU/dL 0.2 - 1.0 EU/dL N [facility] Urinalysis macro (dipstick) panel (U)on 05-19-2024 Bilirubin, UA Negative Negative - 4(70) +++ mg/dL [facility] Blood, UA Negative Negative - 50 Rodolfo/mcL [facility] Clarity, UA Clear [facility] Color, UA Yellow [facility] Glucose, UA Negative Negative - 1999(110) ++++ mg/dL [facility] Interpretation and review of laboratory results Abnormal [facility] Ketones, UA Negative Negative - 160(16) ++++ mg/dL [facility] Leukocytes, UA Trace Negative - 500+++ Julian/mcL [facility] Nitrite, UA Negative Negative - Positive [facility] pH, UA 6.5 5 - 9 [facility] Protein, UA Negative Negative - 1999(20) ++++ mg/dL [facility] Spec Grav, UA 1.025 1 - 1.03 [facility] Urobilinogen, UA 0.2 0.2 - 12 mg/dL [facility] Urinalysis macro (dipstick) panel (U)on 05-12-2024 Bilirubin, UA Negative Negative - 4(70) +++ mg/dL [facility] Blood, UA Negative Negative - 50 Rodolfo/mcL [facility] Clarity, UA Clear [facility] re Color, UA Yudi [facility] Glucose, UA Negative Negative - 1999(110) ++++ mg/dL [facility] Interpretation and review of laboratory results Normal [facility] Ketones, UA Negative Negative - 160(16) ++++ mg/dL [facility] Leukocytes, UA Negative Negative - 500+++ Julian/mcL [facility] Nitrite, UA Negative Negative - Positive [facility] pH, UA 7.0 5 - 9 [facility] Protein, UA Negative Negative - 1999(20) ++++ mg/dL [facility] Spec Grav, UA 1.030 1 - 1.03 [facility] Urobilinogen, UA 1.0 0.2 - 12 mg/dL [facility] Urinalysis macro (dipstick) panel (U)on 05-05-2024 Bilirubin, UA Negative Negative - 4(70) +++ mg/dL [facility] Blood, UA Negative Negative - 50 Rodolfo/mcL [facility] Clarity, UA Clear [facility] Color, UA Yellow [facility] Glucose, UA Negative Negative - 1999(110) ++++ mg/dL [facility] Interpretation and review of laboratory results Normal [facility] Ketones, UA Negative Negative - 160(16) ++++ mg/dL [facility] Leukocytes, UA Negative Negative - 500+++ Julian/mcL [facility] Nitrite, UA Negative Negative - Positive [facility] pH, UA 5.5 5 - 9 [facility] Protein, UA Negative Negative - 1999(20) ++++ mg/dL [facility] Spec Grav, UA 1.020 1 - 1.03 [facility] Urobilinogen, UA 1.0 0.2 - 12 mg/dL [facility] Ambulatory Visit Summaryon 0 09-03-2023 [...] transmitted infections (more content not included)... Normal [facility] Office/Clini c Noteon 09-03-2023 [...] . She has a late lunch at [employer]. Usually something caffeinated as well as a sweet. She cooks meat, potatoes, for dinner meals. She stays well hydrated reasonably well. She drinks [employer] type combination tea and lemonade. She denies [...] are clear. Oropharynx pink and moist. Excellent mcgrath dentition. Without thyromegaly. Clear bilaterally. Regular rate [...] tab(s), Refills(s) 0, Pharmacy: [facility], 163, cm, 10/18/21 8:35:00 EDT, Height/Length Dosing, 73, kg, 10/18/21 8:35:00 EDT, Weight Dosing Portions of this record may have been created with voice recognition artificial intelligence software, specifically ENDYMION, Private[employer]Me and or Antria. Substitutions may have occurred due to the inherent limitations of voice recognition and artificial intelligence software. Follow-up With When Contact Information Danitza COOK MD, FAM In 1 year Additional Instructions: Patient Education Health Maintenance, Female Problem List/Past Medical History Ongoing BMI 26.0-26.9,adult Encounter for well (more content not included)... Normal [facility] Comment on above: Result Comment: Elec tronically [...] in y (more content not included)... Normal [facility] XR foot LT min 3V*on 023 XR foot LT min 3V* [facility] [employer] [address] [place] [address] XRay Report Signed Patient: Carmen Marie MR#: [id number] 2 : 2005 Acct:[id number] Age/Sex: 18 / F ADM Date: 08/01/23 [facility] Attending Dr: Ella Enamorado WEB MARKETING STRATEGIST Copies to: Ella Enamorado APRN Ordering Provider: [...] Marek Plascencia M.D.08/01/2023 1:00 PM Dictation Location: [place] [address] Transcribed By: [facility] 08/01/23 1300 Dictated By: Marek Plascencia DO 08/01/23 1259 Signed By: 08/01/23 1300 [facility] Group A Strep DNAon 03-05-20 21 Group A Strep DNA Specimen Description .THROAT SWAB Special Requests NOT REPORTED Direct Exam Negative: Specimen negative for Streptococcus pyogenes by DNA amplification. Report Status FINAL 03/05/2021 [facility] Comment on above: Performed By: #### G ASDNA #### [facility] [address] [place] [address] Forensic Psychologist: Lonny Aquino MD [facility] [address] [place] [address] Forensic Psychologist: Can Lala MD [id number] 03-04-2021 SARS-CoV-2 (COVID-19) RNA SKINNY+probe Ql (Unsp spec) Not detected Normal NOTDET [facility] Comment on above: Result Comment: Rapid [...] management decisions. Fact sheet for Healthcare Providers: https://www.fda.gov/media/594619/download Fact sheet for Patients: https://www.fda.gov/media/816815/download Methodology: Isothermal Nucleic Acid Amplification Performed By: #### C OVRB #### [facility] [address] [place] [address] Forensic Psychologist: Can Lala MD COVID-19, RapidOrdered By: Georges Last on 03-03-2021 SARS-CoV-2 (COVID-19) RNA SKINNY+probe Ql (Unsp spec) Not detected Not Detected [facility] [employer] Phone: Comment on above: Rapid NAAT: The [...] management decisions. Fact sheet for Healthcare Providers: https://www.fda.gov/media/946826/download Fact sheet for Patients: https://www.fda.gov/media/951520/download Methodology: Isothermal Nucleic Acid Amplification Specimen Description .NASOPHARYNGEAL SWAB [facility]: [employer] Phone: Strep Gr A Direct Agon 03-03 Strep Gr A Direct Ag Specimen Descriptio n .THROAT Special Requests NOT REPORTED Direct Exam Rapid Strep A negative. A negative Rapid Group A Strep Screen result does not rule out the possibility of Group A Streptococci in the specimen. The [place] [employer] recommends confirmation testing. Therefore, a Group A Strep DNA test will be performed. Report Status FINAL 03/03/2021 Normal [facility] Comment on above: Performed By: #### S GPA #### [facility] [address] [place] [address] Forensic Psychologist: Can Lala MD Strep Screen Group A ThroatO rdered By: Alejandra Last on 03-03-2021 S. pyogenes Ag IA Ql (Unsp spec) Rapid Strep A negative. A negative Rapid Group A Strep Screen result does not rule out the possibility of Group A Streptococci in the specimen. The [place] [employer] recommends confirmation testing. Therefore, a Group A Strep DNA test will be performed. [employer] Phone: Special Requests NOT REPORTED [employer] Phone: Specimen Description .THROAT [facility] Phone: [facility] Phone: Vital Signs Date Time Vital Sign Value Performing Clinician Facility 05-26-2024 10:35-0400 Body weight 91.17 kg Braydon Jesus DO Work Phone: [facility] 05-26-2024 10:35-0400 Diastolic blood pressure 74 mm[Hg] Braydon Jesus DO Work Phone: [facility] 05-26-2024 10:35-0400 Systolic blood pressure 122 mm[Hg] Braydon Jesus DO Work Phone: [facility] 05-19-2024 10:02-0400 Body weight 90.27 kg Braydon Jesus DO Work Phone: [facility] 05-19-2024 10:02-0400 Diastolic blood pressure 70 mm[Hg] Braydon Jesus DO Work Phone: [facility] 05-19-2024 10:02-0400 Systolic blood pressure 120 mm[Hg] Braydon Jesus DO Work Phone: [facility] 05-12-2024 15:46-0400 Body weight 89.81 kg Denise BLISS Work Phone: [facility] 05-12-2024 15:46-0400 Diastolic blood pressure 70 mm[Hg] Denise Awan PA Work Phone: [facility] 05-12-2024 15:46-0400 Systolic blood pressure 120 mm[Hg] Denise Awan PA Work Phone: [facility] 05-05-2024 09:11-0400 Body weight 88 kg Denise Awan PA Work Phone: [facility] 05-05-2024 09:11-0400 Diastolic blood pressure 74 mm[Hg] Denise Awan PA Work Phone: [facility] 05-05-2024 09:11-0400 Systolic blood pressure 114 mm[Hg] Denise Awan PA Work Phone: [facility] 09-03-2023 13:19-0500 Blood Pressure Location Danitza COOK [facility] [place] 09-03-2023 13:19-0500 Diastolic blood pressure 70 mm[Hg] Danitza COOK [facility] 09-03-2023 13:19-0500 Heart rate 67 /min Danitza COOK [facility] 09-03-2023 13:19-0500 Respiratory rate 16 /min Danitza COOK [facility] 09-03-2023 13:19-0500 SaO2% (BldA) [Mass fraction] 100 % Danitza COOK [facility] 09-03-2023 13:19-0500 Systolic blood pressure 100 mm[Hg] Danitza COOK [facility] 08-01-2023 14:00-0500 Body height 165.1 cm Ella Enamorado Other [employer] [facility] [employer] Other 08-01-2023 14:00-0500 Body mass index (BMI) [Ratio] 25.79 kg/m2 Ella Enamorado Other [employer] [facility] [employer] Other 08-01-2023 14:00-0500 Body temperature 99.5 [degF] Ella Enamorado Other [employer] Other 08-01-2023 14:00-0500 Body weight 70.31 kg Ella Enamorado Other [employer] Other 08-01-2023 14:00-0500 Respiratory rate 18 /min Ella Enamorado Other [employer] Other 08-01-2023 14:00-0500 SaO2% (BldA) [Mass fraction] 98 % Ella Enamorado Other [facility] [employer] Other 03-03-2021 21:26-0400 Body height 165.1 cm Alejandra Last MD Work Phone: [employer] Work Phone: 03-03-2021 21:26-0400 Body mass index (BMI) [Ratio] 27.12 kg/m2 Alejandra Last MD Work Phone: [employer] Work Phone: 03-03-2021 21:26-0400 Body temperature 100.71 [degF] Alejandra Last MD Work Phone: [employer] Work Phone: 03-03-2021 21:26-0400 Body weight 73.94 kg Alejandra Last MD Work Phone: [employer] Work Phone: 03-03-2021 21:26-0400 Diastolic blood pressure 62 mm[Hg] Alejandra Last MD Work Phone: [employer] Work Phone: 03-03-2021 21:26-0400 Heart rate 96 /min Alejandra Last MD Work Phone: [employer] Work Phone: 03-03-2021 21:26-0400 Respiratory rate 16 /min Alejandra Last MD Work Phone: [employer] Work Phone: 03-03-2021 21:26-0400 SaO2% (BldA) [Mass fraction] 98 % Alejandra Last MD Work Phone: [employer] Work Phone: 03-03-2021 21:26-0400 Systolic blood pressure 128 mm[Hg] Alejandra Last MD Work Phone: [employer] Work Phone: Encounters Encounter Date Encounter Type [...] medical examination with abnormal findings Danitza COOK [facility] [place] Start: 09-03-2023 End: 09-03-2023 Patient encounter procedure Danitza COOK [facility] [place] Start: 08-01-2023 End: 08-01-2023 ambulatory Ella Enamorado Facility:[facility] Start: 08-01-2023 Office outpatient ne w 20 minutes Ella Enamorado [facility] Start: 08-01-2023 End: 08-01-2023 ambulatory WEB MARKETING STRATEGIST Ella Munozhn Work Phone: [facility] Work Phone: Start: 08-01-2023 End: 08-01-2023 Patient encounter procedure WEB MARKETING STRATEGIST Ella Enamorado Work Phone: [facility] [place] Work Phone: Start: 03-03-2021 End: 03-04-2021 Emergency department patient visit ALEJANDRA LAST [facility] Start: 03-03-2021 End: 03-03-2021 Emergency department patient visit Alejandra Last MD Work Phone: [facility] ED Comment on above: Acute pharyngitis, u nspecified etiology (Primary Dx); Acute viral syndrome Procedures Date Procedure Procedure Detail Performing Clinician Start: 05-26-2024 Urnls dip stick/tabl et rgnt non-auto w/o micrscp Braydon Jesus DO Work Phone: Start: 05-24-2024 [facility] UA (CLEAN/CATCH) BILL POSTER INSTALLER/MICRO IF IND. Braydon Jesus DO Work Phone: Start: 05-19-2024 Urnls dip stick/tabl et rgnt non-auto w/o micrscp Braydon Jesus DO Work Phone: Start: 05-12-2024 Urnls dip stick/tabl et rgnt non-auto w/o micrscp Denise BLISS Work Phone: Start: 05-05-2024 Urnls dip stick/tabl et rgnt non-auto w/o micrscp Denise BLISS Work Phone: Start: 08-01-2023 X-ray of left foot WEB MARKETING STRATEGIST Ella Enamorado Work Phone: Start: 03-03-2021 COVID-19, RAPID Alejandra Last MD Work Phone: Start: 03-03-2021 Iaadiadoo streptococ cus group a Alejandra Last MD Work Phone: Tonsillectomy and adenoidectomy Danitza COOK Plan of Treatment Date Care Activity Detail Author Start: 06-02-2024 End: 06-02-2024 Patient encounter procedure 06/02/2024 1:50 PM EDT Routine [facility] [address] [facility] [place] [address] Denise Awan PA [address] [place] [place] [address] [facility] Start: 06-02-2024 End: 06-02-2024 Professional / ancillary services management 06/02/2024 1:00 PM EDT Ancillary Procedure [facility] [address] [facility] [place] [address] [facility] Start: 05-26-2024 End: 05-26-2024 Patient encounter procedure 05/26/2024 10:30 AM EDT Routine [facility] [address] [facility] [place] [address] Braydon Lee DO [address] [place], [place] [id number] [facility] Start: 05-19-2024 End: 05-19-2024 Patient encounter procedure [facility] Comment on above: Arrived Start: 05-12-2024 End: 05-12-2024 Patient encounter procedure 05/12/2024 3:40 PM EDT Routine [facility] [address] [place] [address] Denise Awan, PA [address] [place], [place] [id number] [facility] Start: 05-05-2024 End: 10-03-2025 Strep B DNA probe, amplification Strep B DNA probe, amplification Lab Routine Third trimester Expected: 05/05/2024 (Approximate), Expires: 05/05/2025 [facility] Work Phone: Comment on above: Expected: 05/05/2024 (Approximate), Expires: 05/05/2025 Start: 04-03-2024 Influenza vaccination Influenza Vacc ine (#1) [facility] Start: 04-03-2021 Influenza vaccination Flu vaccine (# 1) [facility] [employer] Phone: Start: 2019 Meningococcal (ACWY) vaccine (1 - 2-dose series) Meningococcal (ACWY) vaccine (1 - 2-dose series) [facility] [employer] Phone: Start: 2019 Screening for Chlamy rika trachomatis Chlamydia screen [facility] [employer] Phone: Start: 2018 HIV screening HIV screen [facility] Work Phone: Start: 2015 COVID-19 Vaccine (1) COVID-19 Vaccin e (1) [facility] [employer] Phone: Start: 2014 HPV vaccine (1 - 2-d ose series) HPV vaccine (1 - 2-dose series) [facility] [employer] Phone: Start: 2010 DTaP/Tdap/Td vaccine (1 - Tdap) DTaP/Tdap/Td vaccine (1 - Tdap) [facility] [employer] Phone: Start: 2004 Hepatitis A vaccine (1 of 2 - 2-dose series) Hepatitis A vaccine (1 of 2 - 2-dose series) [facility] [employer] Phone: Start: 2004 Measles,Mumps,Rubell a (MMR) vaccine (1 of 2 - Standard series) Measles,Mumps,Rubella (MMR) vaccine (1 of 2 - Standard series) [facility] [employer] Phone: Start: 2004 Varicella vaccine (1 of 2 - 2-dose childhood series) Varicella vaccine (1 of 2 - 2-dose childhood series) [employer] Phone: Start: 2003 Polio vaccine (1 of 3 - 4-dose series) Polio vaccine (1 of 3 - 4-dose series) [employer] Phone: Start: 2003 Hepatitis B vaccine (1 of 3 - 3-dose primary series) Hepatitis B vaccine (1 of 3 - 3-dose primary series) [employer] Phone: End: 03-03-2021 Strep A DNA probe, amplification Strep A DNA probe, amplification Lab Routine Once for 1 Occurrences starting 03/03/2021 until 03/03/2021 [employer] Phone: Comment on above: Once for 1 Occurrenc es starting 03/03/2021 until 03/03/2021 Strep A DNA probe, amplification Strep A DNA probe, amplification Lab Routine 03/03/2021 9:46 PM EDT [employer] Phone: Immunizations Immunization Date Immunization Notes Care Provider Fa cility 08-07-2021 SARS-CoV-2 (COVID-19 ) Ad26 vaccine, recombinant Danitza COOK [facility] [place] 01-08-2021 SARS-CoV-2 (COVID-19 ) mRNA BNT-162b2 [employer] [facility] [place] Comment on above: Result Comment: sharin @ ra/w 12-18-2020 SARS-CoV-2 (COVID-19 ) mRNA BNT-162b2 [employer] [facility] [place] Comment on above: Result Comment: sharin @ ra/w 02-24-2020 meningococcal polysaccharide (groups A, C, Y and W-135) diphtheria toxoid conjugate vaccine (MCV4P) [facility] 09-[facility]-2016 HPV, unspecified formulation Gonzalesjason COOK [facility] 05-12-2016 HPV, unspecified formulation Danitza COOK [facility] 03-11-2016 diphtheria, tetanus toxoids and acellular pertussis vaccine Danitza COOK [facility] 03-11-2016 HPV, unspecified formulation Gonzalesjason COOK [facility] 03-11-2016 meningococcal ACWY vaccine, unspecified formulation [employer]jason CHRISTIAN [facility] 01-02-2009 Diphtheria, tetanus toxoids and acellular pertussis vaccine, and poliovirus vaccine, inactivated Christike COOK [facility] 01-02-2009 varicella virus vaccine Danitza COOK [facility] 05-29-2006 influenza virus vaccine, unspecified formulation Denise BLISS Work Phone: [facility] 10-31-2005 measles, mumps and rubella virus vaccine Danitza COOK [facility] 08-12-2004 diphtheria, tetanus toxoids and acellular pertussis vaccine Danitza COOK [facility] 08-12-2004 varicella virus vaccine Danitza COOK [facility] 05-14-2004 haemophilus influenz ae type b vaccine, PRP-T conjugate Danitza COOK [facility] 05-10-2004 measles, mumps and rubella virus vaccine Danitza COOK [facility] 2003 DTaP-hepatitis B and poliovirus vaccine Danitza [employer] [facility] 2003 haemophilus influenz ae type b vaccine, PRP-T conjugate [employer] [facility] 2003 diphtheria, tetanus toxoids and acellular pertussis vaccine [employer] [facility] 2003 haemophilus influenz ae type b vaccine, PRP-T conjugate [employer] [facility] 2003 poliovirus vaccine, unspecified formulation [employer] [facility] 2003 DTaP-hepatitis B and poliovirus vaccine [employer] [facility] 2003 haemophilus influenz ae type b vaccine, PRP-T conjugate [employer] [facility] 2003 hepatitis B vaccine, pediatric or pediatric/adolescent dosage [employer] [facility] [place] NEGATED: Highlighted row has not occurred!09-03-2023 influenza virus vaccine, unspecified formulation [employer] [facility] [place] NEGATED: Highlighted row has not occurred!10-18-2021 influenza virus vaccine, unspecified formulation [employer] [facility] [place] NEGATED: Highlighted row has not occurred!02-24-2020 influenza virus vaccine, unspecified formulation [employer] [facility] [place] Payers Date Payer Category Payer Medicaid [id number] 2024 Medicaid [id number] 2023 Private Health Insurance [employer] [id number] 2023 Unknown [employer] [id number] 2023-Present [address] [place] [address] [id number] 2023 Unknown [id number] 2023 Self-pay 2023 Unknown [id number] 2019 Unknown [id number]. [id number] 2018 Unknown [id number] [id number]. [id number] 2003 Unknown [id number] 2.16.840.1.659994.3.579.2. 727 2003 Unknown [id number] 2.16.840.1.459805.3.579.2. 1259 2003 Unknown [id number] 2.16.840.1.793312.3.579.2. 1259 2003 Unknown [id number] 2.16.840.1.733552.3.579.2. 1259 2003 Unknown [id number] 2.16.840.1.341965.3.579.2. 1259 2003 Unknown [id number] 2.16.840.1.524274.3.579.2. 1259 2003 Unknown [id number] 2.16.840.1.376457.3.579.2. 1259 2003 Unknown [id number] 2.16.840.1.151177.3.579.2. 1259 2003 Unknown [id number] 2.16.840.1.895427.3.579.2. 1259 2003 Unknown [id number] 2.16.840.1.164265.3.579.2. 1259 2003 Unknown [id number] 2.16.840.1.781897.3.579.2. 1259 2003 Unknown [id number] 2.16.840.1.229828.3.579.2. 1259 2003 Unknown [id number] 2.16.840.1.856384.3.579.2. 1259 1982 Unknown [id number] 2.16.840.1.531277.3.579.2. 174 Unknown [id number] 2.16.840.1.625554.3.579.2. 531 Social History Date Type Detail Facility Start: 03-03-2021 End: 04-21-2024 Tobacco smoking status [facility] Never smoker [facility] [facility] [place] Start: 03-03-2021 End: 04-21-2024 Tobacco use and exposure Never used [employer] Start: 03-03-2021 End: 05-26-2024 Alcohol intake Lifetime non-drinker (finding) [employer] Phone: Start: 03-03-2021 History SDOH Alcohol Frequency 1 [employer] Phone: Start: 2003 Sex Assigned At Not on file M [email or web address] Phone: Exposure to SARS-CoV -2 (event) Not sure [facility] Start: [facility] Sex Assigned At Female F [facility] Start: 04-21-[address] F [facility] Tobacco smoking status [facility] [place] Start: 04-21-2024 History of Social function [facility] Start: 09-11-2023 [facility] Functional Status Date Assessment Result Facility 09[facility]03[facility]23 [facility]-01-[facility]23 to 05-26-2024 Maya Matthews [...] Problems Past Medical History: Diagnosis Date Asthma ([facility]) 2008 HISTORY PAST MEDICAL HISTORY SOCIAL HISTORY Past Medical History: Diagnosis Date Asthma ([facility]) 2008 Social History Tobacco Use Smoking status: [...] nursing note reviewed. Exam conducted with a oil filters inspector present. Vitals: Estimated body mass index is [...] Braydon Lee DO documented in this encounter [facility] 05-19-2024 History of Present illness Narrative Reason [...] Problems Past Medical History: Diagnosis Date Asthma ([facility]) 2009 HISTORY PAST MEDICAL HISTORY SOCIAL HISTORY Past Medical History: Diagnosis Date Asthma ([facility]) 2008 Social History Tobacco Use Smoking status: [...] by RUTHY Hernández documented in this encounter [facility] 05-12-2024 History of Present illness Narrative Reason [...] Problems Past Medical History: Diagnosis Date Asthma ([facility]) 2008 HISTORY PAST MEDICAL HISTORY SOCIAL HISTORY Past Medical History: Diagnosis Date Asthma ([facility]) 2008 Social History Tobacco Use Smoking status: [...] nursing note reviewed. Exam conducted with a oil filters inspector present. Vitals: Estimated body mass index is [...] week for routine OB appointment. Documented by Deobrah Garcia LPN on behalf of: RUTHY Hernández documented in this encounter [facility] 05-05-2024 History of Present illness Narrative Reason [...] Problems Past Medical History: Diagnosis Date Asthma ([facility]) 2008 HISTORY PAST MEDICAL HISTORY SOCIAL HISTORY Past Medical History: Diagnosis Date Asthma ([facility]) 2008 Social History Tobacco Use Smoking status: [...] nursing note reviewed. Exam conducted with a oil filters inspector present. Vitals: Estimated body mass index is [...] of: RUTHY Hernández documented in this encounter [facility] 09-03-2023 Evaluation + Plan note Diagnostic Tests PendingCBC w/ Auto Diff 09/03/23Basic Metabolic Panel 09/03/23TSH With T4fr Reflex 09/03/23 [facility] [place] 09-02-2023 Hospital Discharge instructions Patient Education 09/02/2023 [...] provider. Document Revised: 12/09/2021 Document Reviewed: 12/09/2021 [employer] Patient Education 2022 [employer]. Follow Up Care 07/23/2023 13:12:42 With:CHRISTIAN LAGUNA, SHWETHA Mabry Address: When:Within 1 Year(s) [facility] [place] 08-01-2023 Evaluation note Encounter [...] understanding and is agreeable to treatment plan. [employer] Other Evaluation note* Diagnosis Acute pharyngitis, unspecified etiology- Primary Acute viral syndrome [facility]: evaluation noteNo assessment information available [facility] Work Phone: Evaluation note* Diagnosis Third trimester state, incidental [facility] Diagnosis 36 weeks gestation of Third trimester state, incidental [facility] Diagnosis 37 weeks gestation of Third trimester state, incidental [facility]* Diagnosis Third trimester state, incidental 37 weeks gestation of documented in this encounter [facility] Narrative No data available for this section [facility] [employer] [facility] Discharge instructions* Attachments The following attachments cannot be sent through Care Everywhere. * Viral Infections: Teen (Czech) * Sore Throat: Teen (Czech) [facility] Work Phone: progress note No data available for this section [facility] [employer] Advance Directives Documents on File Type Date Recorded Patient Pain Medicine Physician Expl anation ACP-Advance Directive ACP-Power of [employer] Summary Purpose Family History No Family History [...] DATE CREATED AUTHOR AUTHOR'S ORGANIZ ATION 08/06/2023 [facility] DATE CREATED AUTHOR AUTHOR'S ORGANIZ ATION 10/09/2023 Sebastian Chan [facility] DATE CREATED AUTHOR AUTHOR'S ORGANIZ ATION 05/27/2024 [facility] [employer] Care Teams (unrecognized sec tion and content) Team Status: Inactive Member Role Status Dates Ella Enamorado APRN Attending Provider Active Shipper And Receiving Relationship Specialty Start Date End Date Danitza Cook MD [address] [place] [address] PCP - General 10/22/23 Shipper And Receiving Relationship Specialty Start Date End Date Danitza Cook MD [address] [place] [address] PCP - General 10/22/23 Shipper And Receiving Relationship Specialty Start Date End Date Danitza Cook MD [address] [place] [address] PCP - General 10/22/23 Shipper And Receiving Relationship Specialty Start Date End Date Danitza Cook MD [address] [place] [address] PCP - General 10/22/23 Goals [...] BE BASED ON THE PRIMARY CLINICAL RECORDS. [facility]. provides no warranty or guarantee of the accuracy or completeness of information in this document.
== END 2024-06-02 12:59 | disposition home or self-care (01) ==
LOC: NOMS 12:58
PROVIDERS: Family Provider Family Medicine; PCP Family Medicine; Visit Provider Obstetrics & Gynecology
DX: O36.63X0 Maternal care for excessive fetal growth, third trimester, not applicable or unspecified (principal); Z3A.39 39 weeks gestation of pregnancy
CPT/HCPCS: 76816

== ENCOUNTER 2024-06-08 07:05 | Outpatient (OUT) | payer OTHER, MEDICAID, SELFPAY ==
--- OUTSIDE RECORDS SUMMARY | 2024-06-08 07:09 | XMS_ITS | CCD ---
Author Organization [facility] Care Team Providers Care Product Grader Name Role Phone Danitza Cook MD Primary Care Provider 1( [phone] ALEJANDRA LAST Attending Unavailable DANITZA COOK Primary Care Unavailable AUSTIN Enamorado Attending Provider Ella Enamorado Attending Unavailable Ella Enamorado Admitting Unavailable NO FAMILY, PHYSICIAN Primary Care Unavailable Ella Enamorado Unavailable Danitza COOK Primary Care Physician Danitza COOK Attending Unavailable Danitza Cook MD Primary Care Provider JESUSDONALDO HANY Attending Unavailable JESUS, BRAYDON Attending Unavailable JESUS, BRAYDON Attending Unavailable EMPERATRIZ, DENISE Attending Unavailable JESUS, BRAYDON Attending Unavailable EMPERATRIZ, DENISE Attending Unavailable JESUS, BRAYDON Attending Unavailable EMPERATRIZ, DENISE Attending Unavailable EMPERATRIZ, DENISE Attending Unavailable JESUS, BRAYDON Attending Unavailable JESUS, BRAYDON Attending Unavailable EMPERATRIZ, DENISE Attending Unavailable Medications Current Medications Medication Drug [...] polysaccharide iron complex 391 mg oral capsule (15 sources) Start: 02-22-2024 End: 02-21-2025 take 1 [...] Translations: [Other fatigue] Onset: 09-03-2023 Episodic Other complications of (2 sources) Anemia of ; Translations: [Anemia complicating , third trimester] 06-02-2024 Chronic Other injuries and conditions due to external [...] 09-03-2023 Episodic Other and delivery including normal (10 sources) Third trimester ; Translations: [Encounter for supervision of normal , unspecified, third trimester] 05-05-2024 Episodic Other upper respiratory infections (1 source) Acute pharyngitis; Translations: [Acute pharyngitis, unspecified] Episodic Residual codes; unclassified (2 sources) Gestation period, 36 weeks; Translations: [36 weeks gestation of ] 05-12-2024 Episodic Residual codes; unclassified (4 sources) Gestation period, 37 weeks; Translations: [37 weeks gestation of ] 05-19-2024 Episodic Residual codes; unclassified (2 sources) Gestation period, 39 weeks; Translations: [39 weeks gestation of ] 06-02-2024 Episodic Spondylosis; intervertebral disc disorders; other back [...] Documented Da te Episodic/Chronic Nausea and vomiting (15 sources) Nausea and vomiting; Translations: [Nausea with vomiting, unspecified] Onset: 12-31-2023 12-31-2023 Episodic Other screening for suspected conditions (not mental disorders or infectious disease) (15 sources) Patient encounter status; Translations: [Encounter for other specified screening] Onset: 12-31-2023 12-31-2023 Episodic Residual codes; unclassified (15 sources) Gestation period, 17 weeks; Translations: [17 weeks gestation of ] Onset: 12-31-2023 12-31-2023 Episodic Results Test Name Value Interpretation Reference Range Facil ity Urinalysis macro (dipstick) panel (U)on 06-02-2024 Bilirubin, UA Negative Negative - 4(70) +++ mg/dL [facility] Blood, UA Negative Negative - 50 Rodolfo/mcL [facility] Healthcare Clarity, UA Clear [facility] Color, UA Yellow [facility] Glucose, UA Negative Negative - 1999(110) ++++ mg/dL [facility] Interpretation and review of laboratory results Normal [facility] Ketones, UA Negative Negative - 160(16) ++++ mg/dL [facility] Leukocytes, UA Negative Negative - 500+++ Julian/mcL [facility] Nitrite, UA Negative Negative - Positive [facility] pH, UA 6 5 - 9 [facility] Protein, UA Negative Negative - 1999(20) ++++ mg/dL [facility] Spec Grav, UA 1.01 1 - 1.03 [facility] Urobilinogen, UA 1.0 0.2 - 12 mg/dL [facility] Urinalysis macro (dipstick) panel (U)on 05-26-2024 Bilirubin, UA Negative Negative - 4(70) +++ mg/dL [facility] Blood, UA Negative Negative - 50 Rodolfo/mcL [facility] Clarity, UA Clear [facility] Color, UA Yellow [facility] Glucose, UA Negative Negative - 1999(110) ++++ mg/dL [facility] Interpretation and review of laboratory results Abnormal [facility] Ketones, UA Negative Negative - 160(16) ++++ mg/dL [facility] Leukocytes, UA Trace Negative - 500+++ Julian/mcL [facility] Nitrite, UA Negative Negative - Positive [facility] pH, UA 7.5 5 - 9 [facility] Protein, UA Negative Negative - 1999(20) ++++ mg/dL [facility] Spec Grav, UA 1.02 1 - 1.03 [facility] Urobilinogen, UA 1.0 0.2 - 12 mg/dL [facility] UA (CLEAN/CATCH) BEHAVIOR SUPPORT SPECIALIST/CORTNEY RO IF IND.on 05-24-2024 BILIRUBIN URINE Negative NEGATIVE [facility] BLOOD URINE Negative NEGATIVE [facility] re Clarity (U) CLEAR CLEAR [facility] re Color (U) LT. YELLOW YELLOW [facility] GLUCOSE URINE UA Negative NEGATIVE mg/dL [facility] Interpretation and review of laboratory results Abnormal [facility] Ketones Ql (U) Negative NEGATIVE mg/dL [facility]althcare Leukocyte esterase Test strip Ql (U) TRACE Abnormal NEGATIVE [facility] NITRITE URINE Negative NEGATIVE [facility] care pH (U) 6.0 [pH] 5.0 - 9.0 [facility] PROTEIN URINE Negative NEG/TRACE mg/dL [facility] SPECIFIC GRAVITY URINE 1.020 1.005 - 1.025 [facility] URINE MICROSCOPIC INDICATED YES [facility] UROBILINOGEN URINE 1.0 EU/dL 0.2 - 1.0 EU/dL N [facility] Healthcar e Urinalysis macro (dipstick) panel (U)on 05-19-2024 Bilirubin, UA Negative Negative - 4(70) +++ mg/dL [facility] Blood, UA Negative Negative - 50 Rodolfo/mcL [facility] Healthcare Clarity, UA Clear [facility] Color, UA Yellow [facility] Glucose, UA Negative Negative - 1999(110) ++++ mg/dL [facility] Interpretation and review of laboratory results Abnormal [facility] Ketones, UA Negative Negative - 160(16) ++++ mg/dL [facility] Leukocytes, UA Trace Negative - 500+++ Julian/mcL [facility] Healthcare Nitrite, UA Negative Negative - Positive [facility] pH, UA 6.5 5 - 9 [facility] Protein, UA Negative Negative - 1999(20) ++++ mg/dL [facility] Spec Grav, UA 1.025 1 - 1.03 [facility] Urobilinogen, UA 0.2 0.2 - 12 mg/dL [facility] Urinalysis macro (dipstick) panel (U)on 05-12-2024 Bilirubin, UA Negative Negative - 4(70) +++ mg/dL [facility] Blood, UA Negative Negative - 50 Rodolfo/mcL [facility] Healthcare Clarity, UA Clear [facility] Color, UA Yudi [facility] Glucose, UA Negative Negative - 1999(110) ++++ mg/dL [facility] Interpretation and review of laboratory results Normal [facility] Ketones, UA Negative Negative - 160(16) ++++ mg/dL [facility] Leukocytes, UA Negative Negative - 500+++ Julian/mcL [facility] Nitrite, UA Negative Negative - Positive [facility] pH, UA 7.0 5 - 9 [facility] Protein, UA Negative Negative - 1999(20) ++++ mg/dL [facility] Spec Grav, UA 1.030 1 - 1.03 [facility] Health care Urobilinogen, UA 1.0 0.2 - 12 mg/dL [facility] Healthcare [facility] Health[facility] e Urinalysis macro (dipstick) panel (U)on 05-05-2024 Bilirubin, UA Negative Negative - 4(70) +++ mg/dL [facility] Blood, UA Negative Negative - 50 Rodolfo/mcL [facility] Clarity, UA Clear [facility] Color, UA Yellow [facility] Glucose, UA Negative Negative - 1999(110) ++++ mg/dL [facility] Interpretation and review of laboratory results Normal [facility] Ketones, UA Negative Negative - 160(16) ++++ mg/dL [facility] Leukocytes, UA Negative Negative - 500+++ Julian/mcL [facility] Nitrite, UA Negative Negative - Positive [facility] pH, UA 5.5 5 - 9 [facility] Protein, UA Negative Negative - 1999(20) ++++ mg/dL [facility] Spec Grav, UA 1.020 1 - 1.03 [facility] Urobilinogen, UA 1.0 0.2 - 12 mg/dL [facility] Ambulatory Visit Summaryon 0 09-03-2023 Ambulatory Visit Summary CARMEN MARIE Mendoza :2005 Visit Date:09/03/2023 Ambulatory Visit Instructions [...] Appointments Follow Up with Danitza COOK MD, [facility] When: In 1 year Where: Medications What [...] infections (more content not included)... Normal [facility] Family Medicine Office/Clini c Noteon 09-03-2023 Family Medicine Office/Clinic Note Chief Complaint annual chk up, not fasting, no rfs History of Present Illness This is a 18-year-old female here for annual checkup. She is on oral contraceptive prescribed by Bee Watson [facility] REPORTER She is up-to-date with her exams. Her [...] are clear. Oropharynx pink and moist. Excellent [place] dentition. Without thyromegaly. Clear bilaterally. Regular rate [...] # 1 tab(s), Refills(s) 0, Pharmacy: [facility], 163, cm, 10/18/21 8:35:00 EDT, Height/Length Dosing, 73, kg, 10/18/21 8:35:00 EDT, Weight Dosing Portions of this record may have been created with voice recognition artificial intelligence software, specifically [employer], [employer] and or [employer]. Substitutions may have occurred due to the inherent limitations of voice recognition and artificial intelligence software. Follow-up With When Contact Information CHRISTIAN LAGUNA, Danitza, [facility] In 1 year Additional Instructions: Patient Education Health Maintenance, Female Problem List/Past Medical History Ongoing BMI 26.0-26.9,adult Encounter for well (more content not included)... Normal [facility] Comment on above: Result Comment: Elec [...] y (more content not included)... Normal [facility] XR foot LT min 3V*on 023 XR foot LT min 3V* [facility] Main [place] [address] [place] [id number] XRay Report Signed Patient: Carmen Marie MR#: [id number] 2 : 2005 Acct:[id number] Age/Sex: 18 / F ADM Date: 08/01/23 [facility]: [facility] Attending Dr: Ella Enamorado STITCH CLEANER Copies to: Ella Enamorado APRN Ordering Provider: [...] Marek Plascencia M.D.08/01/2023 1:00 PM Dictation Location: [place] [address] Transcribed By: [facility] 08/01/23 1300 Dictated By: Marek Plascencia DO 08/01/23 1259 Signed By: 08/01/23 1300 [facility] Group A Strep DNAon 03-05-20 21 Group A Strep DNA Specimen Description .THROAT SWAB Special Requests NOT REPORTED Direct Exam Negative: Specimen negative for Streptococcus pyogenes by DNA amplification. Report Status FINAL 03/05/2021 [facility] Comment on above: Performed By: #### G ASDNA #### [facility] [address] [place] [address] Head Coach: Lonny Aquino MD [facility] [address] [place] [address] Head Coach: Can Lala MD [id number] 03-04-2021 SARS-CoV-2 (COVID-19) RNA SKINNY+probe Ql (Unsp spec) Not detected Normal [facility] Comment on above: Result Comment: Rapid [...] management decisions. Fact sheet for Healthcare Providers: https://www.[employer].gov/media/483024/download Fact sheet for Patients: https://www.fda.gov/media/231446/download Methodology: Isothermal Nucleic Acid Amplification Performed By: #### C OVRB #### [facility] [address] [place] [address] Head Coach: Can Lala MD COVID-19, RapidOrdered By: Georges Last on 03-03-2021 SARS-CoV-2 (COVID-19) RNA SKINNY+probe Ql (Unsp spec) Not detected Not Detected [facility]: Comment on above: Rapid NAAT: The [...] management decisions. Fact sheet for Healthcare Providers: https://www.fda.gov/media/902969/download Fact sheet for Patients: https://www.fda.gov/media/945374/download Methodology: Isothermal Nucleic Acid Amplification Specimen Description .NASOPHARYNGEAL SWAB [facility]: [employer] Phone: Strep Gr A Direct Agon 08-01 -2021 Strep Gr A Direct Ag Specimen Descriptio n .THROAT Special Requests NOT REPORTED Direct Exam Rapid Strep A negative. A negative Rapid Group A Strep Screen result does not rule out the possibility of Group A Streptococci in the specimen. The [employer] recommends confirmation testing. Therefore, a Group A Strep DNA test will be performed. Report Status FINAL 03/03/2021 Normal [facility] Comment on above: Performed By: #### S GPA #### [facility] [address] [place] [address] Head Coach: Can Lala MD Strep Screen Group A ThroatO rdered By: Alejandra Last on 03-03-2021 S. pyogenes Ag IA Ql (Unsp spec) Rapid Strep A negative. A negative Rapid Group A Strep Screen result does not rule out the possibility of Group A Streptococci in the specimen. The [employer] recommends confirmation testing. Therefore, a Group A Strep DNA test will be performed. [employer] Phone: Special Requests NOT REPORTED [facility]: Specimen Description .THROAT [facility] [employer] Phone: [facility] [employer] Phone: Vital Signs Date Time Vital Sign Value Performing Clinician Facility 06-02-2024 13:44-0400 Body weight 92.26 kg Denise BLISS Work Phone: [facility] 06-02-2024 13:44-0400 Diastolic blood pressure 76 mm[Hg] Denise BLISS Work Phone: [facility] 06-02-2024 13:44-0400 Systolic blood pressure 124 mm[Hg] Denise BLISS Work Phone: [facility] 05-26-2024 10:35-0400 Body weight 91.17 kg Braydon Jesus DO Work Phone: [facility] 05-26-2024 10:35-0400 Diastolic blood pressure 74 mm[Hg] Braydon Jesus DO Work Phone: [facility] 05-26-2024 10:35-0400 Systolic blood pressure 122 mm[Hg] Braydon Jesus DO Work Phone: [facility] 05-19-2024 10:02-0400 Body weight 90.27 kg Braydon Jesus DO Work Phone: [facility] 05-19-2024 10:02-0400 Diastolic blood pressure 70 mm[Hg] Braydon Jesus DO Work Phone: [facility] 05-19-2024 10:02-0400 Systolic blood pressure 120 mm[Hg] Braydon Jesus DO Work Phone: [facility] 05-12-2024 15:46-0400 Body weight 89.81 kg Denise Vanleer PA Work Phone: [facility] 05-12-2024 15:46-0400 Diastolic blood pressure 70 mm[Hg] Denise Vanleer PA Work Phone: [facility] 05-12-2024 15:46-0400 Systolic blood pressure 120 mm[Hg] Denise Emperatriz PA Work Phone: [facility] 05-05-2024 09:11-0400 Body weight 88 kg Denise Emperatriz PA Work Phone: [facility] 05-05-2024 09:11-0400 Diastolic blood pressure 74 mm[Hg] Denise Emperatriz PA Work Phone: [facility] 05-05-2024 09:11-0400 Systolic blood pressure 114 mm[Hg] Denise Vanleer PA Work Phone: [facility] 09-03-2023 13:19-0500 Blood Pressure Location Danitza COOK [facility] 09-03-2023 13:19-0500 Diastolic blood pressure 70 mm[Hg] Danitza COOK [facility] 09-03-2023 13:19-0500 Heart rate 67 /min Danitza BROWN [facility] 09-03-2023 13:19-0500 Respiratory rate 16 /min Danitza COOK [facility] 09-03-2023 13:19-0500 SaO2% (BldA) [Mass fraction] 100 % Danitza COOK [facility] 09-03-2023 13:19-0500 Systolic blood pressure 100 mm[Hg] Danitza COOK [facility] 08-01-2023 14:00-0500 Body height 165.1 cm Ella Enamorado Other [employer] [facility] [employer] Other 08-01-2023 14:00-0500 Body mass index (BMI) [Ratio] 25.79 kg/m2 Ella Enamorado Other [employer] Other 08-01-2023 14:00-0500 Body temperature 99.5 [degF] Ella Enamorado Other [employer] Other 08-01-2023 14:00-0500 Body weight 70.31 kg Ella Enamorado Other [employer] Other 08-01-2023 14:00-0500 Respiratory rate 18 /min Ella Enamorado Other [employer] Other 08-01-2023 14:00-0500 SaO2% (BldA) [Mass fraction] 98 % Ella Enamorado Other [employer] Other 03-03-2021 21:26-0400 Body height 165.1 cm Alejandra Last MD Work Phone: [employer] Work Phone: 03-03-2021 21:26-0400 Body mass index (BMI) [Ratio] 27.12 kg/m2 Alejandra Last MD Work Phone: [employer] Work Phone: 03-03-2021 21:26-0400 Body temperature 100.71 [degF] Alejandra Last MD Work Phone: [employer] Work Phone: 03-03-2021 21:26-0400 Body weight 73.94 kg Alejandra Last MD Work Phone: [employer] Work Phone: 03-03-2021 21:26-0400 Diastolic blood pressure 62 mm[Hg] Alejandra Last MD Work Phone: [employer] Work Phone: 03-03-2021 21:26-0400 Heart rate 96 /min Alejandra Last MD Work Phone: [employer] Work Phone: 03-03-2021 21:26-0400 Respiratory rate 16 /min Alejandra Last MD Work Phone: [employer] Work Phone: 03-03-2021 21:26-0400 SaO2% (BldA) [Mass fraction] 98 % Alejandra Last MD Work Phone: [employer] Work Phone: 03-03-2021 21:26-0400 Systolic blood pressure 128 mm[Hg] Alejandra Last MD Work Phone: [employer] Work Phone: Encounters Encounter Date Encounter Type Care Provider Facility Start: 06-02-2024 End: 06-02-2024 Bamboo flowsheet Denise BLISS Work Phone: [facility] Start: 06-02-2024 End: 06-02-2024 Bamboo flowsheet Denise BLISS Work Phone: [facility] Start: 06-02-2024 End: 06-02-2024 flow sheet Denise BLISS Work Phone: [facility] Comment on above: 39 weeks gestation o f ; Third trimester ; Anemia during in third trimester Start: 06-02-2024 End: 06-02-2024 ambulatory DENISE AWAN Not Available Start: 05-26-2024 End: 05-26-2024 flow sheet Braydon Jesus DO Work Phone: [facility] Comment on above: Third trimester preg jessica; 37 weeks gestation of Start: 05-26-2024 End: 05-26-2024 ambulatory BRAYDON JEUSS Not Available Start: 05-24-2024 End: 05-24-2024 Clinisync [...] Available Start: 05-12-2024 End: 05-12-2024 ambulatory DENISE AWNA Not Available Start: 05-12-2024 End: 05-12-2024 flow sheet Denise BLISS Work Phone: [facility] Comment on above: 36 weeks gestation o f ; Third trimester Start: 05-12-2024 End: 05-12-2024 Bamboo flowsheet Denise BLISS Work Phone: [facility] Start: 05-12-2024 End: 05-12-2024 Bamboo flowsheet Denise BLISS Work Phone: [facility] Start: 05-05-2024 End: 05-05-2024 Bamboo flowsheet Denise Awan PA Work Phone: [facility] Start: 05-05-2024 End: 05-05-2024 Bamboo flowsheet Denise Awan PA Work Phone: [facility] Start: 05-05-2024 [...] medical examination with abnormal findings Danitza COOK [facility] [place] Start: 09-03-2023 End: 09-03-2023 Patient encounter procedure Danitza COOK [facility] [place] Start: 08-01-2023 End: 08-01-2023 ambulatory Ella Enamorado Facility:[facility] Start: 08-01-2023 Office outpatient ne w 20 minutes Ella Enamorado [facility] Start: 08-01-2023 End: 08-01-2023 ambulatory STITCH CLEANER Ella Enamorado Work Phone: [facility] Work Phone: Start: 08-01-2023 End: 08-01-2023 Patient encounter procedure STITCH CLEANER Ella Enamorado Work Phone: [facility] Work Phone: Start: 03-03-2021 End: 03-04-2021 Emergency department patient visit ASHLEY STRUS [facility] Start: 03-03-2021 End: 03-03-2021 Emergency department patient visit Alejandra Last MD Work Phone: [facility] ED Comment on above: Acute pharyngitis, u nspecified etiology (Primary Dx); Acute viral syndrome Procedures Date Procedure Procedure Detail Performing Clinician Start: 06-02-2024 Urnls dip stick/tabl et rgnt non-auto w/o micrscp Denise BLISS Work Phone: Start: 05-26-2024 Urnls dip stick/tabl et rgnt non-auto w/o micrscp Braydon Jesus DO Work Phone: Start: 05-24-2024 [facility] UA (CLEAN/CATCH) BEHAVIOR SUPPORT SPECIALIST/MICRO IF IND. Braydon Jesus DO Work Phone: Start: 05-19-2024 Urnls dip stick/tabl et rgnt non-auto w/o micrscp Braydon Jesus DO Work Phone: Start: 05-12-2024 Urnls dip stick/tabl et rgnt non-auto w/o micrscp Denise BLISS Work Phone: Start: 05-05-2024 Urnls dip stick/tabl et rgnt non-auto w/o micrscp Denise BLISS Work Phone: Start: 08-01-2023 X-ray of left foot AUSTIN Enamorado Work Phone: Start: 03-03-2021 COVID-19, RAPID Alejandra Last MD Work Phone: Start: 03-03-2021 Iaadiadoo streptococ cus group a Alejandra Last MD Work Phone: Tonsillectomy and adenoidectomy Kennike COOK Plan of Treatment Date Care Activity Detail Author Start: 06-09-2024 End: 06-09-2024 Patient encounter procedure 06/09/2024 9:50 AM EST Routine [facility] [address] [place] [place] [address] Denise Awan PA [address] [place] [address] [facility] Start: 06-02-2024 End: 06-02-2025 US biophysical profile w non stress test US biophysical profile w non stress test Imaging Routine Anemia during in third trimester Expected: 06/02/2024 (Approximate), Expires: 06/02/2025 [facility] Work Phone: Comment on above: Expected: 06/02/2024 (Approximate), Expires: 06/02/2025 Start: 06-02-2024 End: 06-02-2024 Patient encounter procedure [facility] Comment on above: Arrived Start: 06-02-2024 End: 06-02-2024 Professional / ancillary services management 06/02/2024 1:00 PM EDT Ancillary Procedure [facility] [address] [place] [place] [address] [facility] Start: 05-26-2024 End: 05-26-2024 Patient encounter procedure 05/26/2024 10:30 AM EDT Routine [facility] [address] [place] [id number] Braydon Lee DO [address] [place] [address] [facility] Start: 05-19-2024 End: 05-19-2024 Patient encounter procedure [facility] Comment on above: Arrived Start: 05-12-2024 End: 05-12-2024 Patient encounter procedure 05/12/2024 3:40 PM EDT Routine [facility] [address] [place] [id number] Denise Awan PA [address] [facility] [address] [place], [place] [id number] [facility] Start: 05-05-2024 End: 05-05-2025 Strep B DNA probe, amplification Strep B DNA probe, amplification Lab Routine Third trimester Expected: 05/05/2024 (Approximate), Expires: 05/05/2025 [facility] Work Phone: Comment on above: Expected: 05/05/2024 (Approximate), Expires: 05/05/2025 Start: 04-03-2024 Influenza vaccination Influenza Vacc ine (#1) [facility] Start: 04-03-2021 Influenza vaccination Flu [facility] (# [facility] Start: 2019 Meningococcal (ACWY) vaccine (1 - 2-dose series) Meningococcal (ACWY) vaccine (1 - 2-dose series) [facility]: Start: 2019 Screening for Chlamy rika trachomatis Chlamydia screen [facility]: Start: 2018 HIV screening HIV screen [facility] Work Phone: Start: 2015 COVID-19 Vaccine (1) COVID-19 Vaccin e (1) [employer] Phone: Start: 2014 HPV vaccine (1 - 2-d ose series) HPV vaccine (1 - 2-dose series) [employer] Phone: Start: 2010 DTaP/Tdap/Td vaccine (1 - Tdap) DTaP/Tdap/Td vaccine (1 - Tdap) [employer]: Start: 2004 Hepatitis A vaccine (1 of 2 - 2-dose series) Hepatitis A vaccine (1 of 2 - 2-dose series) [employer]: Start: 2004 Measles,Mumps,Rubell a (MMR) vaccine (1 of 2 - Standard series) Measles,Mumps,Rubella (MMR) vaccine (1 of 2 - Standard series) [employer]: Start: 2004 Varicella vaccine (1 of 2 - 2-dose childhood series) Varicella vaccine (1 of 2 - 2-dose childhood series) [employer]: Start: 2003 Polio vaccine (1 of 3 - 4-dose series) Polio vaccine (1 of 3 - 4-dose series) [employer]: Start: 2003 Hepatitis B vaccine (1 of 3 - 3-dose primary series) Hepatitis B vaccine (1 of 3 - 3-dose primary series) [employer]: End: 03-03-2021 Strep A DNA probe, amplification Strep A DNA probe, amplification Lab Routine Once for 1 Occurrences starting 03/03/2021 until 03/03/2021 [employer]: Comment on above: Once for 1 Occurrenc es starting 03/03/2021 until 03/03/2021 Strep A DNA probe, amplification Strep A DNA probe, amplification Lab Routine 03/03/2021 9:46 PM EDT [employer]: Immunizations Immunization Date Immunization Notes Care Provider Pierre tsang 08-07-2021 SARS-CoV-2 (COVID-19 ) Ad26 vaccine, recombinant [employer] [facility] 01-08-2021 SARS-CoV-2 (COVID-19 ) mRNA BNT-162b2 vax [employer] [facility] Comment on above: Result Comment: gvn @ ra/w 12-18-2020 SARS-CoV-2 (COVID-19 ) mRNA BNT-162b2 vax [employer] [facility] Comment on above: Result Comment: gvn @ /w 02-24-2020 meningococcal polysaccharide (groups A, C, Y and W-135) diphtheria toxoid conjugate vaccine (MCV4P) [employer] [facility] 09-11-2016 HPV, unspecified formulation [employer] [facility] 05-12-2016 HPV, unspecified formulation [employer] [facility] 03-11-2016 diphtheria, tetanus toxoids and acellular pertussis vaccine [employer] [facility] 03-11-2016 HPV, unspecified formulation [employer] [facility] 03-11-2016 meningococcal ACWY vaccine, unspecified formulation [employer] [facility] 01-02-2009 Diphtheria, tetanus toxoids and acellular pertussis vaccine, and poliovirus vaccine, inactivated [employer] [facility] 01-02-2009 varicella virus vaccine [employer] [facility] 05-29-2006 influenza virus vaccine, unspecified formulation Denise Emperatriz RUTHY Work Phone: [facility] 10-31-2005 measles, mumps and rubella virus vaccine [facility] [employer] [facility] 08-12-2004 diphtheria, tetanus toxoids and acellular pertussis vaccine [facility] [employer] [facility] 08-12-2004 varicella virus vaccine [employer] [facility] 05-14-2004 haemophilus influenz ae type b vaccine, PRP-T conjugate [employer] [facility] 05-10-2004 measles, mumps and rubella virus vaccine [facility] [employer] [facility] 2003 DTaP-hepatitis B and poliovirus vaccine [facility] [employer] [facility] 2003 haemophilus influenz ae type b vaccine, PRP-T conjugate [employer] [facility] 2003 diphtheria, tetanus toxoids and acellular pertussis vaccine [facility] [employer] [facility] 2003 haemophilus influenz ae type b vaccine, PRP-T conjugate [facility] 2003 poliovirus vaccine, unspecified formulation [facility] [employer] [facility] 2003 DTaP-hepatitis B and poliovirus vaccine [facility] [employer] [facility] 2003 haemophilus influenz ae type b vaccine, PRP-T conjugate [employer] [facility] 2003 hepatitis B vaccine, pediatric or pediatric/adolescent dosage Danitza COOK [facility] [place] NEGATED: Highlighted row has not occurred!09-03-2023 influenza virus vaccine, unspecified formulation Danitza COOK [facility] [place] NEGATED: Highlighted row has not occurred!10-18-2021 influenza virus vaccine, unspecified formulation Danitza COOK [facility] [place] NEGATED: Highlighted row has not occurred!02-24-2020 influenza virus vaccine, unspecified formulation Danitza COOK [facility] [place] Payers Date Payer Category Payer Medicaid [id number] 2024 Medicaid [id number] 2023 Private Health Insurance [employer] [id number] 2023 Unknown [employer] [id number] 2023-Present [address] [place] [address] [id number] 2023 Unknown [id number] 2023 Self-pay 2023 Unknown [id number] 2019 Unknown [id number] [id number]. [id number] 2018 Unknown [id number] 1.2.840.231107.1.13.239.2. [id number] 2003 Unknown [id number] 2.16.840.1.465168.3.579.2. 727 2003 Unknown [id number] 2.16.840.1.598860.3.579.2. 1259 2003 Unknown [id number] 2.16.840.1.052053.3.579.2. 9 2003 Unknown [id number] 2.16.840.1.474245.3.579.2. 125 2003 Unknown [id number] 2.16.840.1.436266.3.579.2. 125 2003 Unknown [id number] 2.16.840.1.401705.3.579.2. 125 2003 Unknown [id number] 2.16.840.1.603605.3.579.2. 1259 2003 Unknown [id number] 2.16.840.1.635281.3.579.2. 1259 2003 Unknown [id number] 2.16.840.1.834114.3.579.2. 1259 2003 Unknown [id number] 2.16.840.1.563999.3.579.2. 1259 2003 Unknown [id number] 2.16.840.1.657342.3.579.2. 9 2003 Unknown [id number] 2.16.840.1.157897.3.579.2. 1259 2003 Unknown [id number] 2.16.840.1.880436.3.579.2. 1259 2003 Unknown [id number] 2.16.840.1.248053.3.579.2. 1259 1982 Unknown [id number] 2.16.840.1.077369.3.579.2. 174 Unknown [id number] 2.16.840.1.592202.3.579.2. 531 Social History Date Type Detail Facility Start: 03-03-2021 End: 04-21-2024 Tobacco smoking status NHIS Never smoker [facility] [place] Start: 03-03-2021 End: 04-21-2024 Tobacco use and exposure Never used [employer] Start: 03-03-2021 End: 06-02-2024 Alcohol intake Lifetime non-drinker (finding) [employer]: Start: 03-03-2021 History SDOH Alcohol Frequency 1 [employer]: Start: 2003 Sex Assigned At Not on file [employer] Work Phone: Exposure to SARS-CoV -2 (event) Not sure [employer] Start: 2003 Sex Assigned At Female F [facility] Start: 04-21-2024 Sex Assigned At F [facility] Tobacco smoking status Never [facility] [place] Start: 04-21-2024 History of Social function [facility] Start: 09-11-2023 [facility] Functional Status Date Assessment Result Facility 09-03-2023 Functional Status N/A [facility] [place] Clinical Notes 08-01-2023 to 06-02-2024 RUTHY Hernández - 06/02/2024 1:50 PM Heladio Matthews LPN - 05/26/2024 10:30 AM RUTHY Arellano - 05/19/2024 10:00 AM RUTHY Arellano - 05/12/2024 3:40 PM RUTHY Arellano - 05/05/2024 8:30 AM EDT Note Date & Type Note Facility 06-02-2024 History of Present illness Narrative Reason for [...] Problems Past Medical History: Diagnosis Date Asthma ([facility]) 2008 HISTORY PAST MEDICAL HISTORY SOCIAL HISTORY Past Medical History: Diagnosis Date Asthma ([facility]) 2008 Social History Tobacco Use Smoking status: [...] Weight as of 12/31/18: 161 lb. BP: 124/76 Patient's last menstrual period was 08/28/2023. ASSESSMENT & PLAN ICD-10-CM 1. 39 weeks gestation of Z3A.39 POCT urinalysis dipstick manually resulted 2. Third trimester Z34.93 POCT urinalysis dipstick manually resulted 3. Anemia during in third trimester O99.013 US biophysical profile w non stress test Return OB: Patient presents today for a routine obstetrics appointment. Patient is currently 39w6d . Patient states she is doing well but has complaints of being tired due to current . Patient has verbalizes frequent movement. labor precautions was discussed/given and patient was instructed to perform kick counts three times a day. Orders Placed This Encounter Procedures US biophysical profile w non stress test POCT urinalysis dipstick manually resulted Pt scheduled for induction 06/10/24 if necessary, consents signed. Given nst and bpp order Follow Up: Patient is to return to office in 1 week for routine OB appointment. Documented by RUTHY Hernández on behalf of: RUTHY Hernández documented in this encounter [facility] 05-26-2024 History of Present illness Narrative Reason [...] Problems Past Medical History: Diagnosis Date Asthma ([facility]) 2009 HISTORY PAST MEDICAL HISTORY SOCIAL HISTORY Past Medical History: Diagnosis Date Asthma ([facility]) 2008 Social History Tobacco Use Smoking status: Never Smokeless tobacco: Never Substance Use Topics Alcohol use: Never Drug use: Never FAMILY HISTORY Family History Problem Relation Name Age of Onset No Known Problems Mother Diabetes Father Eric Marie SURGICAL HISTORY History reviewed. No pertinent surgical [...] nursing note reviewed. Exam conducted with a care rep present. Vitals: Estimated body mass index is [...] Braydon Lee DO documented in this encounter [facility] 05-19-2024 History of Present illness Narrative [...] Problems Past Medical History: Diagnosis Date Asthma ([facility]) 2008 HISTORY PAST MEDICAL HISTORY SOCIAL HISTORY Past Medical History: Diagnosis Date Asthma ([facility]) 2008 Social History Tobacco Use Smoking status: [...] by RUTHY Hernández documented in this encounter [facility] 05-12-2024 History of Present illness Narrative [...] Problems Past Medical History: Diagnosis Date Asthma ([facility]) 2008 HISTORY PAST MEDICAL HISTORY SOCIAL HISTORY Past Medical History: Diagnosis Date Asthma ([facility]) 2008 Social History Tobacco Use Smoking status: [...] nursing note reviewed. Exam conducted with a care rep present. Vitals: Estimated body mass index is [...] of: RUTHY Hernández documented in this encounter [facility] 05-05-2024 History of Present illness Narrative [...] Problems Past Medical History: Diagnosis Date Asthma (CMS/[facility]) 2008 HISTORY PAST MEDICAL HISTORY SOCIAL HISTORY Past Medical History: Diagnosis Date Asthma ([facility]) 2008 Social History Tobacco Use Smoking status: [...] nursing note reviewed. Exam conducted with a care rep present. Vitals: Estimated body mass index is [...] of: RUTHY Hernández documented in this encounter [facility] 09-03-2023 Evaluation + Plan note Diagnostic Tests PendingCBC w/ Auto Diff 09/03/23Basic Metabolic Panel 09/03/23TSH With T4fr Reflex 09/03/23 [facility] 09-02-2023 Hospital Discharge instructions Patient Education 09/02/2023 [...] provider. Document Revised: 12/09/2021 Document Reviewed: 12/09/2021 [employer] Patient Education 2022 [employer]. Follow Up Care 07/23/2023 13:12:42 With:Danitza COOK MD, FAM Address: When:Within 1 Year(s) [facility] [place] 08-01-2023 Evaluation note Encounter [...] understanding and is agreeable to treatment plan. [employer] Other Evaluation note* Diagnosis Acute pharyngitis, unspecified etiology- Primary Acute viral syndrome documented in this encounter [facility] [employer] Work Phone: evaluation noteNo assessment information available [facility] Work Phone: Evaluation note* Diagnosis Third trimester state, incidental [facility] Diagnosis 36 weeks gestation of Third trimester state, incidental [facility] Diagnosis 37 weeks gestation of Third trimester state, incidental [facility] Diagnosis Third trimester state, incidental 37 weeks gestation of [facility] Diagnosis 39 weeks gestation of Third trimester state, incidental Anemia during in third trimester [facility] Narrative No data available for this section [facility] [employer] [facility] Discharge instructions* Attachments The following attachments cannot be sent through Care Everywhere. 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 Purpose Family History No Family History [...] DATE CREATED AUTHOR AUTHOR'S ORGANIZ ATION 08/06/2023 [facility] DATE CREATED AUTHOR AUTHOR'S ORGANIZ ATION 10/09/2023 [facility] DATE CREATED AUTHOR AUTHOR'S ORGANIZ ATION 06/04/2024 [facility] Specialists [facility] Care Teams (unrecognized sec tion and content) Team Status: Inactive Member Role Status Dates Ella Enamorado APRN Attending Provider Active Product Grader Relationship Specialty Start Date End Date Danitza Cook MD [address] [place] [address] PCP - General 10/22/23 Product Grader Relationship Specialty Start Date End Date Danitza Cook MD [address] [place] [address] PCP - General 10/22/23 Product Grader Relationship Specialty Start Date End Date Danitza Cook MD [address] [place] [address] PCP - General 10/22/23 Product Grader Relationship Specialty Start Date End Date Danitza Cook MD [address] [place] [address] PCP - General 10/22/23 Product Grader Relationship Specialty Start Date End Date Danitza Cook MD [address] [place] [address] PCP - General 10/22/23 Goals [...] BE BASED ON THE PRIMARY CLINICAL RECORDS. [employer] [facility]. provides no warranty or guarantee of the accuracy or completeness of information in this document.
--- NOTE | 2024-06-08 08:23 | US_ITS ---
[address] [address] Patient Name: ISIAH MARIE MRN: [facility]:[id number] date: 2005 Sex: F Assigned Patient Location: [facility] Current Patient Location: [facility] Accession/Order Number: [id number] Exam Date: 06/08/2024 08:30 Report Date: 06/08/2024 09:02 At the request of: GENEVIEVE AWAN Procedure: US OB BPP w non-stress EXAMINATION: US OB BPP w non-stress HISTORY: Anemia during COMPARISON: No relevant comparison available. TECHNIQUE: Ultrasound biophysical profile was performed in the radiology department. non-reactive stress testing was performed by nursing staff in the birthing center. FINDINGS: BREATHING MOVEMENTS: 2 GROSS BODY MOVEMENTS: 2 TONE: 2 QUALITATIVE AMNIOTIC FLUID VOLUME: 2 PRESENTATION: CEPHALIC HEART RATE: 135.68 bpm AMNIOTIC FLUID VOLUME: 17.0 cm GESTATIONAL AGE: 40 weeks 5 days US/US OB BPP w non-stress IMPRESSION: Total biophysical profile score: 8 Electronically authenticated by: KEISHA LYONS Date: 06/08/2024 09:02
[2024-06-08 08:55] VITALS: BP 125/80; PULSE 70
== END 2024-06-08 09:25 | disposition home or self-care (01) ==
LOC: US 07:06 → FBC 08:18
PROVIDERS: Family Provider Family Medicine; PCP Family Medicine; Visit Provider Physician Assistant
DX: O99.013 Anemia complicating pregnancy, third trimester (principal); Z3A.40 40 weeks gestation of pregnancy
CPT/HCPCS: 76818

== ENCOUNTER 2024-06-09 05:21 | Inpatient (IN) | payer OTHER, MEDICAID, SELFPAY ==
[2024-06-09] VITALS (65 sets, daily range): BP systolic 98–164; BP diastolic 50–99; PULSE 63–104; TEMP 36.7–37.4; O2SAT 97–100
--- OUTSIDE RECORDS SUMMARY | 2024-06-09 05:25 | XMS_ITS | CCD ---
Author Organization [facility] Care Team Providers Care Senior Net Engineer Name Role Phone Danitza Cook MD Primary Care Provider ALEJANDRA LAST Attending Unavailable DANITZA COOK Primary Care Unavailable AUSTIN Enamorado Attending Provider Ella Enamorado Attending Unavailable Ella Enamorado Admitting Unavailable NO FAMILY, PHYSICIAN Primary Care Unavailable Ella Enamorado Unavailable Danitza COOK Primary Care Physician Danitza COOK Attending Unavailable Danitza Cook MD Primary Care Provider [phone] JESUSDONALDO HANY Attending Unavailable JESUS, BRAYDON Attending [...] UA Negative Negative - 4(70) +++ mg/dL [facility] Blood, UA Negative Negative - 50 Rodolfo/mcL [facility] Healthcare Clarity, UA Clear [facility] Color, UA Yellow [facility] Glucose, UA Negative Negative - 1999(110) ++++ mg/dL [facility] Interpretation and review of laboratory results Normal [facility] Ketones, UA Negative Negative - 160(16) ++++ mg/dL [facility] Leukocytes, UA Negative Negative - 500+++ Julian/mcL [facility] Nitrite, UA Negative Negative - Positive [facility] pH, UA 6 5 - 9 [facility] Protein, UA Negative Negative - 1999(20) ++++ mg/dL [facility] Spec Grav, UA 1.01 1 - 1.03 [facility] Urobilinogen, UA 1.0 0.2 - 12 mg/dL [facility] Urinalysis macro (dipstick) panel (U)on 05-26-2024 Bilirubin, UA Negative Negative - 4(70) +++ mg/dL [facility] Blood, UA Negative Negative - 50 Rodolfo/mcL [facility] Clarity, UA Clear [facility] Color, UA Yellow [facility] e Glucose, UA Negative Negative - 1999(110) ++++ mg/dL [facility] Interpretation and review of laboratory results Abnormal [facility] Ketones, UA Negative Negative - 160(16) ++++ mg/dL [facility] Leukocytes, UA Trace Negative - 500+++ Julian/mcL [facility] Nitrite, UA Negative Negative - Positive [facility] pH, UA 7.5 5 - 9 [facility] e Protein, UA Negative Negative - 1999(20) ++++ mg/dL [facility] Spec Grav, UA 1.02 1 - 1.03 [facility] Urobilinogen, UA 1.0 0.2 - 12 mg/dL [facility] Healthcar e TBH UA (CLEAN/CATCH) TIN POURER/CORTNEY RO IF IND.on 05-24-2024 BILIRUBIN URINE Negative NEGATIVE [facility] BLOOD URINE Negative NEGATIVE [facility]ca re Clarity (U) CLEAR CLEAR [facility] re Color (U) LT. YELLOW YELLOW [facility] GLUCOSE URINE UA Negative NEGATIVE mg/dL [facility] Interpretation and review of laboratory results Abnormal [facility] Ketones Ql (U) Negative NEGATIVE mg/dL [facility] ealthcare Leukocyte esterase Test strip Ql (U) TRACE Abnormal NEGATIVE [facility] NITRITE URINE Negative NEGATIVE [facility] pH (U) 6.0 [pH] 5.0 - 9.0 [facility] e PROTEIN URINE Negative NEG/TRACE mg/dL [facility] H [facility] SPECIFIC GRAVITY URINE 1.020 1.005 - 1.025 [facility] URINE MICROSCOPIC INDICATED YES [facility] UROBILINOGEN URINE 1.0 EU/dL 0.2 - 1.0 EU/dL [facility] Healthcar e Urinalysis macro (dipstick) panel (U)on 05-19-2024 Bilirubin, UA Negative Negative - 4(70) +++ mg/dL [facility] Blood, UA Negative Negative - 50 Rodolfo/mcL [facility] Healthcare Clarity, UA Clear [facility] Color, UA Yellow [facility] Glucose, UA Negative Negative - 1999(110) ++++ mg/dL [facility] Interpretation and review of laboratory results Abnormal [facility] Ketones, UA Negative Negative - 160(16) ++++ mg/dL [facility] Leukocytes, UA Trace Negative - 500+++ Julian/mcL [facility] Healthcare Nitrite, UA Negative Negative - Positive [facility] pH, UA 6.5 5 - 9 [facility] Protein, UA Negative Negative - 1999(20) ++++ mg/dL [facility] Healthcare Spec Grav, UA 1.025 1 - 1.03 [facility] Urobilinogen, UA 0.2 0.2 - 12 mg/dL [facility] Urinalysis macro (dipstick) panel (U)on 05-12-2024 Bilirubin, UA Negative Negative - 4(70) +++ mg/dL [facility] Blood, UA Negative Negative - 50 Rodolfo/mcL [facility] Healthcare Clarity, UA Clear [facility] Color, UA Yudi [facility] Glucose, UA Negative Negative - 1999(110) ++++ mg/dL [facility] Interpretation and review of laboratory results Normal [facility] Ketones, UA Negative Negative - 160(16) ++++ mg/dL [facility] Leukocytes, UA Negative Negative - 500+++ Julian/mcL [facility] Healthcare Nitrite, UA Negative Negative - Positive [facility] pH, UA 7.0 5 - 9 [facility] Protein, UA Negative Negative - 1999(20) ++++ mg/dL [facility] Spec Grav, UA 1.030 1 - 1.03 [facility] Health care Urobilinogen, UA 1.0 0.2 - 12 mg/dL [facility] Healthcare [facility] Health[facility] e Urinalysis macro (dipstick) panel (U)on 05-05-2024 Bilirubin, UA Negative Negative - 4(70) +++ mg/dL [facility] Blood, UA Negative Negative - 50 Rodolfo/mcL [facility] Healthcare Clarity, UA Clear [facility] Color, UA Yellow [facility] Glucose, UA Negative Negative - 1999(110) ++++ mg/dL [facility] Interpretation and review of laboratory results Normal [facility] Ketones, UA Negative Negative - 160(16) ++++ mg/dL [facility] Leukocytes, UA Negative Negative - 500+++ Julian/mcL [facility] Nitrite, UA Negative Negative - Positive [facility] pH, UA 5.5 5 - 9 [facility] Protein, UA Negative Negative - 1999(20) ++++ mg/dL [facility] Spec Grav, UA 1.020 1 - 1.03 [facility] Urobilinogen, UA 1.0 0.2 - 12 mg/dL [facility] Health[facility] e Ambulatory Visit Summaryon 0 09-03-2023 [...] Appointments Follow Up with Danitza COOK MD, [facility] When: In 1 year Where: Medications [...] infections (more content not included)... Normal [facility] Family Medicine Office/Clini c Noteon 09-03-2023 Family Medicine Office/Clinic Note Chief Complaint annual chk up, not fasting, no rfs History of Present Illness This is a 18-year-old female here for annual checkup. She is on oral contraceptive prescribed by Bee Watson [employer] She is up-to-date with her exams. Her [...] . She has a late lunch at [facility]. Usually something caffeinated as well as a [...] are clear. Oropharynx pink and moist. Excellent te-moak dentition. Without thyromegaly. Clear bilaterally. Regular rate [...] with voice recognition artificial intelligence software, specifically ZappyLab, Backspaces and or Dashride. Substitutions may have occurred due to the inherent limitations of voice recognition and artificial intelligence software. Follow-up With When Contact Information CHRISTIAN LAGUNA, Danitza, [facility] In 1 year Additional Instructions: Patient Education Health Maintenance, Female Problem List/Past Medical History Ongoing BMI 26.0-26.9,adult Encounter for well (more content not included)... Normal [facility] Comment on above: Result Comment: Elec [...] in y (more content not included)... Normal [facility] XR foot LT min 3V*on 023 XR foot LT min 3V* [facility] Main [place] [address] [place] [id number] XRay Report Signed Patient: Carmen Marie MR#: [id number] 2 : 2005 Acct:[id number] Age/Sex: 18 / F ADM Date: 08/01/23 [facility]: Type: [facility] Attending Dr: Ella Enamorado INJECTION PRESS OPERATOR Copies to: Ella Enamorado APRN Ordering Provider: [...] Marek Plascencia M.D.08/01/2023 1:00 PM Dictation Location: [place] [address] Transcribed By: [facility] 08/01/23 1300 Dictated By: Marek Plascencia DO 08/01/23 1259 Signed By: 08/01/23 1300 [facility] Group A Strep DNAon 03-05-20 21 Group A Strep DNA Specimen Description .THROAT SWAB Special Requests NOT REPORTED Direct Exam Negative: Specimen negative for Streptococcus pyogenes by DNA amplification. Report Status FINAL 03/05/2021 [facility] Comment on above: Performed By: #### G ASDNA #### [facility] [address] [place] [address] Dish Machine Operator: Lonny Aquino MD [facility] [address] [place] [address] Dish Machine Operator: Can Lala MD [id number] 03-04-2021 SARS-CoV-2 (COVID-19) RNA SKINNY+probe Ql (Unsp spec) Not detected Normal [facility] Comment on above: Result Comment: Rapid [...] management decisions. Fact sheet for Healthcare Providers: https://www.My-wardrobe.com.gov/media/294845/download Fact sheet for Patients: https://www.fda.gov/media/282709/download Methodology: Isothermal Nucleic Acid Amplification Performed By: #### C OVRB #### [facility] [address] [place] [address] Dish Machine Operator: Can Lala MD COVID-19, RapidOrdered By: Georges Last on 03-03-2021 SARS-CoV-2 (COVID-19) RNA SKINNY+probe Ql (Unsp spec) Not detected Not Detected [facility]: Comment on above: Rapid NAAT: The [...] management decisions. Fact sheet for Healthcare Providers: https://www.fda.gov/media/623773/download Fact sheet for Patients: https://www.fda.gov/media/433951/download Methodology: Isothermal Nucleic Acid Amplification Specimen Description .NASOPHARYNGEAL SWAB [facility] Phone: [facility] Phone: Strep Gr A Direct Agon 08-01 -2021 Strep Gr A Direct Ag Specimen Descriptio n .THROAT Special Requests NOT REPORTED Direct Exam Rapid Strep A negative. A negative Rapid Group A Strep Screen result does not rule out the possibility of Group A Streptococci in the specimen. The [place] [employer] recommends confirmation testing. Therefore, a Group A Strep DNA test will be performed. Report Status FINAL 03/03/2021 Normal [facility] Comment on above: Performed By: #### S GPA #### [facility] [address] [place] [address] Dish Machine Operator: Can Lala MD Strep Screen Group A ThroatO rdered By: Alejandra Last on 03-03-2021 S. pyogenes Ag IA Ql (Unsp spec) Rapid Strep A negative. A negative Rapid Group A Strep Screen result does not rule out the possibility of Group A Streptococci in the specimen. The [place] [employer] recommends confirmation testing. Therefore, a Group A Strep DNA test will be performed. [facility] Phone: Special Requests NOT REPORTED [facility] Phone: Specimen Description .THROAT [facility] [employer] Phone: [facility] [employer] Phone: Vital Signs Date Time Vital Sign Value Performing Clinician Facility 06-02-2024 13:44-0400 Body weight 92.26 kg Denise BLISS Work Phone: [facility] 06-02-2024 13:44-0400 Diastolic blood pressure 76 mm[Hg] Denise BLISS Work Phone: [facility] 06-02-2024 13:44-0400 Systolic blood pressure 124 mm[Hg] Denise BLISS Work Phone: [facility] 05-26-2024 10:35-0400 Body weight 91.17 kg Braydon Jesus DO Work Phone: [facility] 05-26-2024 10:35-0400 Diastolic blood pressure 74 mm[Hg] Braydon Jesus DO Work Phone: [facility] 05-26-2024 10:35-0400 Systolic blood pressure 122 mm[Hg] Braydon Jesus DO Work Phone: [facility] 05-19-2024 10:02-0400 Body weight 90.27 kg Braydon Jesus DO Work Phone: [facility] 05-19-2024 10:02-0400 Diastolic blood pressure 70 mm[Hg] Braydon Jesus DO Work Phone: [facility] 05-19-2024 10:02-0400 Systolic blood pressure 120 mm[Hg] Braydon Jesus DO Work Phone: [facility] 05-12-2024 15:46-0400 Body weight 89.81 kg Denise Sebewaing PA Work Phone: [facility] 05-12-2024 15:46-0400 Diastolic blood pressure 70 mm[Hg] Denise Sebewaing PA Work Phone: [facility] 05-12-2024 15:46-0400 Systolic blood pressure 120 mm[Hg] Denise Emperatriz PA Work Phone: [facility] 05-05-2024 09:11-0400 Body weight 88 kg Denise Emperatriz PA Work Phone: [facility] 05-05-2024 09:11-0400 Diastolic blood pressure 74 mm[Hg] Denise Emperatriz PA Work Phone: [facility] 05-05-2024 09:11-0400 Systolic blood pressure 114 mm[Hg] Denise Sebewaing PA Work Phone: [facility] 09-03-2023 13:19-0500 Blood Pressure Location Danitza COOK [facility] 09-03-2023 13:19-0500 Diastolic blood pressure 70 mm[Hg] Danitza COOK [facility] 09-03-2023 13:19-0500 Heart rate 67 /min Danitza BROWN [facility] 09-03-2023 13:19-0500 Respiratory rate 16 /min Danitza COOK [facility] 09-03-2023 13:19-0500 SaO2% (BldA) [Mass fraction] 100 % Danitza COOK [facility] 09-03-2023 13:19-0500 Systolic blood pressure 100 mm[Hg] Danitza COOK [facility] 08-01-2023 14:00-0500 Body height 165.1 cm Ella Enamorado Other [employer] [facility] [employer] Other 08-01-2023 14:00-0500 Body mass index (BMI) [Ratio] 25.79 kg/m2 Ella Enamorado Other [employer] Other 08-01-2023 14:00-0500 Body temperature 99.5 [degF] Ella Enamorado Other [employer] Other 08-01-2023 14:00-0500 Body weight 70.31 kg Ella Enamorado Other [employer] Other 08-01-2023 14:00-0500 Respiratory rate 18 /min Ella Enamorado Other [employer] Other 08-01-2023 14:00-0500 SaO2% (BldA) [Mass fraction] 98 % Ella Enamorado Other [employer] Other 03-03-2021 21:26-0400 Body height 165.1 cm Alejandra Last MD Work Phone: [employer] Work Phone: 03-03-2021 21:26-0400 Body mass index (BMI) [Ratio] 27.12 kg/m2 Alejandra Last MD Work Phone: [employer] Work Phone: 03-03-2021 21:26-0400 Body temperature 100.71 [degF] Alejandra Last MD Work Phone: [employer] Work Phone: 03-03-2021 21:26-0400 Body weight 73.94 kg Alejandra Last MD Work Phone: [employer] Work Phone: 03-03-2021 21:26-0400 Diastolic blood pressure 62 mm[Hg] Alejandra Last MD Work Phone: [employer] Work Phone: 03-03-2021 21:26-0400 Heart rate 96 /min Alejandra Last MD Work Phone: [employer] Work Phone: 03-03-2021 21:26-0400 Respiratory rate 16 /min Alejandra Last MD Work Phone: [employer] Work Phone: 03-03-2021 21:26-0400 SaO2% (BldA) [Mass fraction] 98 % Alejandra Last MD Work Phone: [employer] Work Phone: 03-03-2021 21:26-0400 Systolic blood pressure 128 mm[Hg] Alejandra Last MD Work Phone: [employer] Work Phone: Encounters Encounter Date Encounter Type [...] Not Available Start: 09-03-2023 End: 09-04-2023 ambulatory aDnitza COOK Facility: [place] Start: 09-03-2023 End: 09-03-2023 Encounter for general adult medical examination with abnormal findings Danitza COOK [facility] [place] Start: 09-03-2023 End: 09-03-2023 Patient encounter procedure Danitza COOK [facility] [place] Start: 08-01-2023 End: 08-01-2023 ambulatory Ella Enamorado Facility:[facility] Start: 08-01-2023 Office outpatient ne w 20 minutes Ella Enamorado [facility] Start: 08-01-2023 End: 08-01-2023 ambulatory INJECTION PRESS OPERATOR Ella Enamorado Work Phone: [facility] Work Phone: Start: 08-01-2023 End: 08-01-2023 Patient encounter procedure INJECTION PRESS OPERATOR Ella Enamorado Work Phone: [facility] Work Phone: Start: 03-03-2021 End: 03-04-2021 Emergency department patient visit ASHLEY STRUS [facility] Start: 03-03-2021 End: 03-03-2021 Emergency department patient visit Alejandra Last MD Work Phone: [facility] ED Comment on above: Acute pharyngitis, u nspecified etiology (Primary Dx); Acute viral syndrome Procedures Date Procedure Procedure Detail Performing Clinician Start: 06-02-2024 Urnls dip stick/tabl et rgnt non-auto w/o micrscp Denise BLISS Work Phone: Start: 05-26-2024 Urnls dip stick/tabl et rgnt non-auto w/o micrscp Braydon Jesus DO Work Phone: Start: 05-24-2024 TBH UA (CLEAN/CATCH) TIN POURER/MICRO IF IND. Braydon Jesus DO Work Phone: [...] AM EST Routine [facility] [address] [place] [address] Denise Awan PA [address] [place] [address] [facility] Start: 06-02-2024 End: 06-02-2025 [...] EDT Ancillary Procedure [facility] [address] [place] [address] [facility] Start: 05-26-2024 End: 05-26-2024 Patient encounter procedure 05/26/2024 10:30 AM EDT Routine [facility] [address] [place] [id number] Braydon Lee DO [address] [facility] [address] [place] [address] [facility] Start: 05-19-2024 End: 05-19-2024 Patient encounter procedure [facility] Comment on above: Arrived Start: 05-12-2024 End: 05-12-2024 Patient encounter procedure 05/12/2024 3:40 PM EDT Routine [facility] [address] [place] [id number] Denise Awan PA [address] [place], [place] [id number] [facility] Start: 05-05-2024 End: 05-05-2025 Strep B DNA probe, amplification Strep B DNA probe, amplification Lab Routine Third trimester Expected: 05/05/2024 (Approximate), Expires: 05/05/2025 [facility] Work Phone: Comment on above: Expected: 05/05/2024 (Approximate), Expires: 05/05/2025 Start: 04-03-2024 Influenza vaccination Influenza Vacc ine (#1) [facility] Start: 04-03-2021 Influenza vaccination Flu vaccine (# 1) [facility]: Start: 2019 Meningococcal (ACWY) vaccine (1 - 2-dose series) Meningococcal (ACWY) vaccine (1 - 2-dose series) [facility] Phone: Start: 2019 Screening for Chlamy rika trachomatis Chlamydia screen [facility]: Start: 2018 HIV screening HIV screen [facility] Work Phone: Start: 2015 COVID-19 Vaccine (1) COVID-19 Vaccin e (1) [facility] Phone: Start: 2014 HPV vaccine (1 - 2-d ose series) HPV vaccine (1 - 2-dose series) [facility] Phone: Start: 2010 DTaP/Tdap/Td vaccine (1 - Tdap) DTaP/Tdap/Td vaccine (1 - Tdap) [facility] Phone: Start: 2004 Hepatitis A vaccine (1 of 2 - 2-dose series) Hepatitis A vaccine (1 of 2 - 2-dose series) [facility] Phone: Start: 2004 Measles,Mumps,Rubell a (MMR) vaccine (1 of 2 - Standard series) Measles,Mumps,Rubella (MMR) vaccine (1 of 2 - Standard series) [facility] Phone: Start: 2004 Varicella vaccine (1 of 2 - 2-dose childhood series) Varicella vaccine (1 of 2 - 2-dose childhood series) [facility] Phone: Start: 2003 Polio vaccine (1 of 3 - 4-dose series) Polio vaccine (1 of 3 - 4-dose series) [facility] Phone: Start: 2003 Hepatitis B vaccine (1 of 3 - 3-dose primary series) Hepatitis B vaccine (1 of 3 - 3-dose primary series) [facility] Phone: End: 03-03-2021 Strep A DNA probe, amplification Strep A DNA probe, amplification Lab Routine Once for 1 Occurrences starting 03/03/2021 until 03/03/2021 [facility] Phone: Comment on above: Once for 1 Occurrenc es starting 03/03/2021 until 03/03/2021 Strep A DNA probe, amplification Strep A DNA probe, amplification Lab Routine 03/03/2021 9:46 PM EDT [facility] Phone: Immunizations Immunization Date Immunization Notes Care Provider Pierre tsang 08-07-2021 SARS-CoV-2 (COVID-19 ) Ad26 vaccine, recombinant [place] [facility] 01-08-2021 SARS-CoV-2 (COVID-19 ) mRNA BNT-162b2 vax [facility] [facility] Comment on above: Result Comment: gvn @ ra/w 12-18-2020 SARS-CoV-2 (COVID-19 ) mRNA BNT-162b2 [address] [facility] Comment on above: Result Comment: gvn @ /w 02-24-2020 meningococcal polysaccharide (groups A, C, Y and W-135) diphtheria toxoid conjugate vaccine (MCV4P) [facility] 09-11-2016 HPV, unspecified formulation [employer] [facility] 05-12-2016 HPV, unspecified formulation [employer] [facility] 03-11-2016 diphtheria, tetanus toxoids and acellular pertussis vaccine [facility] [facility] 03-11-2016 HPV, unspecified formulation [employer] [facility] 03-11-2016 meningococcal ACWY vaccine, unspecified formulation [employer] [facility] 01-02-2009 Diphtheria, tetanus toxoids and acellular pertussis vaccine, and poliovirus vaccine, inactivated Danitza [facility] [facility] 01-02-2009 varicella virus vaccine [facility] 05-29-2006 influenza virus vaccine, unspecified formulation Denise Emperatriz RUTHY Work Phone: [facility] 10-31-2005 measles, mumps and rubella virus vaccine [facility] 08-12-2004 diphtheria, tetanus toxoids and acellular pertussis vaccine [facility] 08-12-2004 varicella virus vaccine [employer] [facility] [facility] 05-14-2004 haemophilus influenz ae type b vaccine, PRP-T conjugate [employer] [facility] 05-10-2004 measles, mumps and rubella virus vaccine [facility] 2003 DTaP-hepatitis B and poliovirus vaccine [facility] 2003 haemophilus influenz ae type b vaccine, PRP-T conjugate [employer] [facility] 2003 diphtheria, tetanus toxoids and acellular pertussis vaccine [facility] 2003 haemophilus influenz ae type b vaccine, PRP-T conjugate [facility] [facility] 2003 poliovirus vaccine, unspecified formulation [facility] 2003 DTaP-hepatitis B and poliovirus vaccine [facility] 2003 haemophilus influenz ae type b vaccine, PRP-T conjugate [employer] [facility] 2003 hepatitis B vaccine, pediatric or pediatric/adolescent dosage Danitza COOK [facility] [place] NEGATED: Highlighted row has not occurred!09-03-2023 influenza virus vaccine, unspecified formulation Danitza COOK [facility] [place] NEGATED: Highlighted row has not occurred!10-18-2021 influenza virus vaccine, unspecified formulation Danitza COOK [facility] [place] NEGATED: Highlighted row has not occurred!02-24-2020 influenza virus vaccine, unspecified formulation Danitza COOK [facility] [place] Payers Date Payer Category Payer Medicaid [id number] 2024 Medicaid [id number] 2023 Private Health Insurance [employer] [id number] 2023 Unknown [employer] [id number] 2023-Present [address] [place] [address] [id number] 2023 Unknown [id number] 2023 Self-pay 2023 Unknown [id number] 2019 Unknown [id number]. [id number] 2018 Unknown [id number] [id number]. [id number] 2003 Unknown [id number] 2.16.840.1.377664.3.579.2. 727 2003 Unknown [id number] 2.16.840.1.800363.3.579.2. 1259 2003 Unknown [id number] 2.16.840.1.736244.3.579.2. 9 2003 Unknown [id number] 2.16.840.1.161301.3.579.2. 125 2003 Unknown [id number] 2.16.840.1.286584.3.579.2. 125 2003 Unknown [id number] 2.16.840.1.759584.3.579.2. 125 2003 Unknown [id number] 2.16.840.1.105936.3.579.2. 1259 2003 Unknown [id number] 2.16.840.1.890044.3.579.2. 1259 2003 Unknown [id number] 2.16.840.1.258659.3.579.2. 1259 2003 Unknown [id number] 2.16.840.1.960038.3.579.2. 1259 2003 Unknown [id number] 2.16.840.1.326238.3.579.2. 9 2003 Unknown [id number] 2.16.840.1.423521.3.579.2. 1259 2003 Unknown [id number] 2.16.840.1.532583.3.579.2. 1259 2003 Unknown [id number] 2.16.840.1.957294.3.579.2. 1259 1982 Unknown [id number] 2.16.840.1.811708.3.579.2. 174 Unknown [id number] 2.16.840.1.803740.3.579.2. 531 Social History Date Type Detail Facility Start: 03-03-2021 End: 04-21-2024 Tobacco smoking status NHIS Never smoker [facility] [place] Start: 03-03-2021 End: 04-21-2024 Tobacco use and exposure Never used [employer] Start: 03-03-2021 End: 06-02-2024 Alcohol intake Lifetime non-drinker (finding) [facility] Phone: Start: 03-03-2021 History SDOH Alcohol Frequency 1 [facility] Phone: Start: 2003 Sex Assigned At Not on file M [employer] Work Phone: Exposure to SARS-CoV -2 (event) Not sure [facility] Start: 2003 Sex Assigned At Female F [facility] Start: 04-21-2024 Sex Assigned At F [facility] Tobacco smoking status Never [facility] [place] Start: 04-21-2024 History of Social function [facility] Start: 09-11-2023 [facility] Functional Status Date Assessment Result Facility 09-03-2023 Functional Status N/A [facility] [place] Clinical Notes 08-01-2023 to 06-02-2024 RUTHY [...] Problems Past Medical History: Diagnosis Date Asthma ([facility] 2008 HISTORY PAST MEDICAL HISTORY SOCIAL HISTORY Past Medical History: Diagnosis Date Asthma ([facility] 2008 Social History Tobacco Use Smoking status: [...] of: RUTHY Hernández documented in this encounter [facility] 05-26-2024 History of Present illness Narrative [...] Problems Past Medical History: Diagnosis Date Asthma ([facility]) 2009 HISTORY PAST MEDICAL HISTORY SOCIAL HISTORY Past Medical History: Diagnosis Date Asthma ([facility]) 2008 Social History Tobacco Use Smoking status: [...] nursing note reviewed. Exam conducted with a hot metal mixer operator helper present. Vitals: Estimated body mass index is [...] Braydon Lee DO documented in this encounter [facility] 05-19-2024 History of Present illness [...] Problems Past Medical History: Diagnosis Date Asthma ([facility]) 2008 HISTORY PAST MEDICAL HISTORY SOCIAL HISTORY Past Medical History: Diagnosis Date Asthma ([facility]) 2008 Social History Tobacco Use Smoking status: [...] by RUTHY Hernández documented in this encounter [facility] 05-12-2024 History of Present illness [...] Problems Past Medical History: Diagnosis Date Asthma ([facility]) 2008 HISTORY PAST MEDICAL HISTORY SOCIAL HISTORY Past Medical History: Diagnosis Date Asthma ([facility]) 2008 Social History Tobacco Use Smoking status: [...] nursing note reviewed. Exam conducted with a hot metal mixer operator helper present. Vitals: Estimated body mass index is [...] of: RUTHY Hernández documented in this encounter [facility] 05-05-2024 History of Present illness [...] HISTORY Past Medical History: Diagnosis Date Asthma ([facility]) 2008 Social History Tobacco Use Smoking status: [...] nursing note reviewed. Exam conducted with a hot metal mixer operator helper present. Vitals: Estimated body mass index is [...] of: RUTHY Hernández documented in this encounter [facility] 09-03-2023 Evaluation + Plan note Diagnostic Tests PendingCBC w/ Auto Diff 09/03/23Basic Metabolic Panel 09/03/23TSH With T4fr Reflex 09/03/23 [facility] [place] 09-02-2023 Hospital Discharge instructions Patient Education 09/02/2023 [...] provider. Document Revised: 12/09/2021 Document Reviewed: 12/09/2021 [employer] Patient Education 2022 [employer]. Follow Up Care 07/23/2023 13:12:42 With:Danitza COOK MD, FAM Address: When:Within 1 Year(s) [facility] [place] 08-01-2023 Evaluation note Encounter [...] understanding and is agreeable to treatment plan. [employer] Other Evaluation note* Diagnosis Acute pharyngitis, unspecified etiology- Primary Acute viral syndrome documented in this encounter [facility] [employer] Work Phone: evaluation noteNo assessment information available [facility] Work Phone: Evaluation note* Diagnosis Third trimester [...] Narrative No data available for this section [facility] Discharge instructions* Attachments The following attachments cannot be sent through Care Everywhere. 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 Summary Purpose Family History No Family [...] DATE CREATED AUTHOR AUTHOR'S ORGANIZ ATION 08/06/2023 [facility] DATE CREATED AUTHOR AUTHOR'S ORGANIZ ATION 10/09/2023 [facility] DATE CREATED AUTHOR AUTHOR'S ORGANIZ ATION 06/04/2024 [facility] [place] Care Teams (unrecognized sec tion and content) Team Status: Inactive Member Role Status Dates Ella Enamorado APRN Attending Provider Active Senior Net Engineer Relationship Specialty Start Date End Date Danitza Cook MD [address] [address] PCP - General 10/22/23 Senior Net Engineer Relationship Specialty Start Date End Date Danitza Cook MD [address] [address] PCP - General 10/22/23 Senior Net Engineer Relationship Specialty Start Date End Date Danitza Cook MD [address] [address] PCP - General 10/22/23 Senior Net Engineer Relationship Specialty Start Date End Date Danitza Cook MD [address] [place] [address] PCP - General 10/22/23 Senior Net Engineer Relationship Specialty Start Date End Date Danitza Cook MD [address] [address] PCP - General 10/22/23 Goals [...] BE BASED ON THE PRIMARY CLINICAL RECORDS. [facility]. provides no warranty or guarantee of the accuracy or completeness of information in this document.
[2024-06-09] MEDS: 0.9 % SODIUM CHLORIDE 1,000 ML 125 ML IV ×2 (07:07→13:37)
[2024-06-09] MEDS: OXYTOCIN/0.9 % SODIUM CHLORIDE 10 UNITS/500 ML PLAST..BAG 6 UNIT IV (07:08)
[2024-06-09 07:11] LABS: Hematocrit 30.2 % (36.0-48.0); Hemoglobin 8.6 g/dL (12.0-16.0); Mean Corpuscular HGB Conc 28.5 g/dL (29.9-35.2); Mean Corpuscular Volume 66.8 fL (81.0-99.0); Mean Platelet Volume 10.7 fL (9.5-13.5); Platelet Count 265 10^3/uL (150-450); Red Cell Distribution Width 17.7 % (11.0-15.0); White Blood Count 7.8 10^3/uL (4.0-11.0)
[2024-06-09 07:51] LABS: Red Blood Count 4.52 10^6/uL (4.20-5.40)
[2024-06-09 10:04] LABS: Amphetamine Screen Urine NEGATIVE (NEGATIVE); Barbiturates Screen Urine NEGATIVE (NEGATIVE); Benzodiazepines Screen Urine NEGATIVE (NEGATIVE); Buprenorphine Screen Urine NEGATIVE (NEGATIVE); Cannabinoid Screen Urine NEGATIVE (NEGATIVE); Cocaine Screen Urine NEGATIVE (NEGATIVE); Methadone Screen Urine NEGATIVE (NEGATIVE); Methamphetamines Screen Urine NEGATIVE (NEGATIVE); Opiate Screen Urine NEGATIVE (NEGATIVE); Oxycodone Screen Urine NEGATIVE (NEGATIVE); Phencyclidine Screen Urine NEGATIVE (NEGATIVE); Tricyclic Antidepressant Urine NEGATIVE (NEGATIVE)
[2024-06-09] MEDS: NALBUPHINE HCL 10 MG/ML AMPULE IV (11:14)
[2024-06-09] MEDS: ROPIVACAINE HCL/PF 400 MG/200 ML PREMIX 6 MG EPIDURAL (14:37)
[2024-06-09] MEDS: METOCLOPRAMIDE HCL 10 MG/2 ML VIAL IVP (19:35)
[2024-06-09] MEDS: 0.9 % SODIUM CHLORIDE 1,000 ML 1000 ML IV (19:35)
[2024-06-09] MEDS: FAMOTIDINE/PF 20 MG/2 ML VIAL IV (19:35)
[2024-06-09] MEDS: CITRIC ACID/SODIUM CITRATE 30 ML SOLUTION ORACIT SHOHL'S SOLN PO (19:35)
[2024-06-09] MEDS: CEFAZOLIN SODIUM/DEXTROSE,ISO 2 GM/50 ML PIGGYBACK IV (19:53)
[2024-06-09] MEDS: OXYTOCIN/0.9 % SODIUM CHLORIDE 20 UNITS/1,000 ML PLAST..BAG 125 UNIT IV (20:20)
[2024-06-09] MEDS: LACTATED RINGER'S SOLUTION 1,000 ML 50 ML IV (20:40)
[2024-06-10] VITALS (32 sets, daily range): BP systolic 104–127; BP diastolic 49–76; PULSE 72–90; TEMP 36.3–37.5; O2SAT 95–99
[2024-06-10] MEDS: CEFAZOLIN SODIUM/DEXTROSE,ISO 2 GM/50 ML PIGGYBACK IV (01:22)
[2024-06-10] MEDS: KETOROLAC TROMETHAMINE 30 MG/ML VIAL IVP ×4 (02:53→21:20)
[2024-06-10 06:46] LABS: Basophils Percent Auto 0.1 % (0.2-2.0); Immature Granulocytes Abs Auto 0.16 10^3/uL (0.00-0.03); Immature Granulocytes Pct Auto 0.9 % (0.0-0.5); Lymphocytes Absolute Auto 0.8 10^3/uL (1.2-3.8); Lymphocytes Percent Auto 4.5 % (20.5-60.0); Mean Corpuscular Hemoglobin 19.5 pg (26.7-34.0); Mean Corpuscular Volume 67.7 fL (81.0-99.0); Mean Platelet Volume 10.6 fL (9.5-13.5); Monocytes Percent Auto 5.3 % (1.7-12.0); Neutrophils Absolute Auto 16.2 10^3/uL (1.4-6.5); Neutrophils Percent Auto 89.2 % (43.0-75.0); Platelet Count 239 10^3/uL (150-450); Red Blood Count 3.28 10^6/uL (4.20-5.40); Red Cell Distribution Width 17.9 % (11.0-15.0); White Blood Count 18.2 10^3/uL (4.0-11.0)
[2024-06-10 07:07] LABS: Mean Corpuscular HGB Conc 28.8 g/dL (29.9-35.2)
[2024-06-10 07:08] LABS: Hematocrit 22.2 % (36.0-48.0); Hemoglobin 6.4 g/dL (12.0-16.0)
[2024-06-10] MEDS: DOCUSATE SODIUM 100 MG CAPSULE PO ×2 (08:51→21:20)
[2024-06-10] MEDS: 0.9 % SODIUM CHLORIDE 250 ML 10 ML IV (08:52)
--- NOTE | 2024-06-10 09:36 | PM.OBPN ---
OB - PN: Subj Subjective Patient comments: no complaints and pain well controlled [place] status: doing well Exam Constitutional Vital Signs, click to edit/add: Last Vital Signs Temp 99.5 F 06/10/24 09:25 Pulse 86 06/10/24 09:25 Resp 16 06/10/24 09:25 BP 113/67 06/10/24 09:25 Pulse Ox 98 06/10/24 09:25 O2 Del Method Room Air 06/10/24 09:25 Documenting provider has reviewed patient's vital signs: yes Common normals: no apparent distress Respiratory Common normals: normal respiratory effort and clear to auscultation bilaterally Cardio Common normals: regular rate and regular rhythm GI Common normals: Normal to inspection, nondistended, normoactive bowel sounds present Extremity Common normals: no calf tenderness Results Labs Labs: Short CBC 06/10/24 Range/Units 06:18 WBC 18.2 H (4.0-11.0) 10^3/uL Hgb 6.4 L* D (12.0-16.0) g/dL Hct 22.2 L* (36.0-48.0) % Plt Count 239 (150-450) 10^3/uL Urinary Catheter Management Urinary Catheter Management Urethral: Cath placed during this visit: yes Urethral indwelling: No Insertion date: 06/09/24 Insertion time: 15:10 OB - PN: A/P Plan - day: 1 Plan: routine postop care Time Spent with Patient Time: Total time spent is greater than 50% in coordination of care (as documented) at patient's floor/unit and/or counseling patient: Total time spent with greater than 50% in coordination of care (as documented) at patient's floor/unit and/or counseling patient: less than 15 minutes
[2024-06-10] MEDS: ENOXAPARIN SODIUM 40 MG/0.4 ML SYRINGE SUBQ (11:38)
--- NOTE | 2024-06-10 19:19 | W.PC.ACHO ---
Registration Status: ADM IN Primary Language: Preferred Language: Georgian Report given on meds, , drsg, need of shower & activity. Active Medications Generic Name Dose Route Start Last Admin Trade Name Freq PRN Reason Stop Dose Admin Al Hydroxide/Mg Hydroxide 2,400 mg 06/09/24 21:22 Magnesium Hydroxide 2,400 Mg/10 Ml Oral.Susp PO Q6H PRN Dyspepsia Carboprost Tromethamine 250 mcg 06/09/24 05:35 Carboprost Tromethamine 250 Mcg/Ml 1 Ml Vial IM 06/10/24 20:00 Q15M PRN Bleeding Diphtheria/Pertussis/Tetanus Vacc 0.5 ml 06/11/24 09:00 Adacel Diph,Pertuss(Acell),Tet Vac/Pf 0.5 Ml Adult Syringe IM 06/11/24 09:01 .ONCE ONE Docusate Sodium 100 mg 06/10/24 09:00 06/10/24 08:51 Docusate Sodium 100 Mg Capsule PO 100 mg BID CANDIS Administration Enoxaparin Sodium 40 mg 06/09/24 09:30 06/10/24 11:38 Enoxaparin Sodium 40 Mg/0.4 Ml Syringe SUBQ 40 mg Q24H CANDIS Administration Tranexamic Acid 1,000 mg/ 110 mls @ 440 mls/hr 06/09/24 05:35 Sodium Chloride IV 06/10/24 20:00 ONCE PRN Uterine Bleeding Sodium Chloride 1,000 mls @ 125 mls/hr 06/09/24 06:00 06/09/24 13:37 Sodium Chloride 0.9% 1,000 Ml IV 125 mls/hr .Q8H CANDIS Administration Promethazine HCl 25 mg/ Sodium 51 mls @ 204 mls/hr 06/09/24 21:22 Chloride IV Q6H PRN Nausea And Vomiting Sodium Chloride 250 mls @ 10 mls/hr 06/10/24 07:23 06/10/24 08:52 Sodium Chloride 0.9% 250 Ml IV 10 mls/hr .Q24H PRN Administration LINE CLEARANCE Ibuprofen 800 mg 06/09/24 21:22 Ibuprofen 400 Mg Tablet PO Q8H PRN Pain Ketorolac Tromethamine 30 mg 06/09/24 21:22 06/10/24 14:57 Ketorolac Tromethamine 30 Mg/Ml Vial IVP 06/11/24 21:23 30 mg Q6H PRN Administration Pain Measles/Mumps/Rubella Vaccine Live 0.5 ml 06/11/24 09:00 Measles,Mumps,Rubella Vacc/Pf 0.5 Ml Vial SQ 06/11/24 09:01 .ONCE ONE Methylergonovine Maleate 0.2 mg 06/09/24 05:35 Methylergonovine Maleate 0.2 Mg/Ml Ampule IM 06/10/24 20:00 ONCE PRN Uterine Contractility/Contract Misoprostol 600 mcg 06/09/24 05:35 Misoprostol 100 Mcg Tablet PO 06/10/24 20:00 ONCE PRN Uterine Bleeding Misoprostol 800 mcg 06/09/24 05:35 Misoprostol 100 Mcg Tablet SL 06/10/24 20:00 ONCE PRN Uterine Bleeding Misoprostol 1,000 mcg 06/09/24 05:35 Misoprostol 100 Mcg Tablet NC 06/10/24 20:00 ONCE PRN Uterine Bleeding Ondansetron HCl 4 mg 06/09/24 05:35 Ondansetron Pf 4 Mg/2 Ml Vial IV Q6H PRN Nausea And Vomiting Ondansetron HCl 4 mg 06/09/24 05:35 Ondansetron 4 Mg Rapdis Tablet SL Q6H PRN Nausea And Vomiting Oxycodone/Acetaminophen 1 tab 06/09/24 21:22 Oxycodone Hcl/Acetaminophen 5mg/325mg PO Q4H PRN Pain Scale 4-6 Oxycodone/Acetaminophen 2 tab 06/09/24 21:22 Oxycodone Hcl/Acetaminophen 5mg/325mg PO Q4H PRN Pain Scale 7-10 Oxytocin 10 unit 06/09/24 05:35 Oxytocin 10 Unit/Ml Vial IM 06/10/24 20:00 ONCE PRN Bleeding Senna 17.2 mg 06/09/24 20:00 Sennosides 8.6 Mg Tablet PO QHS PRN Constipation Simethicone 80 mg 06/09/24 21:22 Simethicone 80 Mg Tab.Chew PO QID PRN Abdominal Distention Diet Category Date Time Status Regular Consistency Diet Diet 06/09/24 21:23 Active IV Insertion/Site Date of IV Line Insertion [ 06/09/24 Short PIV (<1.75 in) 20g left Antecubital] IV Insertion Time [Short PIV ( 19:25 <1.75 in) 20g left Antecubital ] Respiratory Pulse Oximetry 95 Pulse Oximetry 98 Pulse Oximetry 99 Pulse Oximetry 99 Pulse Oximetry 98 Pulse Oximetry 98 Pulse Oximetry 98 Pulse Oximetry 98 Pulse Oximetry 98 Pulse Oximetry 98 Pulse Oximetry 99 Pulse Oximetry 99 Pulse Oximetry 98 Pulse Oximetry 99 Pulse Oximetry 99 Pulse Oximetry 98 Pulse Oximetry 99 Pulse Oximetry 98 Pulse Oximetry 98 Pulse Oximetry 97 Pulse Oximetry 98 Pulse Oximetry 98 Pulse Oximetry 98 Pulse Oximetry 98 Pulse Oximetry 98 Pulse Oximetry 98 Pulse Oximetry 98 Pulse Oximetry 98 Pulse Oximetry 99 Pulse Oximetry 99 Pulse Oximetry 99 Pulse Oximetry 98 Pulse Oximetry 99 Pulse Oximetry 100 Oxygen Delivery Method Room Air Oxygen Delivery Method Room Air Oxygen Delivery Method Room Air Oxygen Delivery Method Room Air Oxygen Delivery Method Room Air Oxygen Delivery Method Room Air Oxygen Delivery Method Room Air Oxygen Delivery Method Room Air Oxygen Delivery Method Room Air Oxygen Delivery Method Room Air Oxygen Delivery Method Room Air Oxygen Delivery Method Room Air Oxygen Delivery Method Room Air Oxygen Delivery Method Room Air Oxygen Delivery Method Room Air Cardiology Heart Sounds Strong,Regular Heart Sounds Regular Renal Bladder Pattern Continent Catheter Urinary Catheter Date of 06/09/24 Insertion [Urethral] Urinary Catheter Time of 15:10 Insertion [Urethral] Date Urinary Catheter Removed 06/10/24 [Urethral] Time Urinary Catheter 15:00 Discontinued [Urethral]
[2024-06-10] MEDS: SIMETHICONE 80 MG TAB.CHEW PO (19:41)
[2024-06-11] VITALS (12 sets, daily range): BP systolic 108–124; BP diastolic 65–84; PULSE 85–93; TEMP 36.6–37; O2SAT 98–99
[2024-06-11 06:55] LABS: Hematocrit 25.1 % (36.0-48.0); Hemoglobin 7.5 g/dL (12.0-16.0); Mean Corpuscular HGB Conc 29.9 g/dL (29.9-35.2); Mean Corpuscular Hemoglobin 21.4 pg (26.7-34.0); Mean Corpuscular Volume 71.5 fL (81.0-99.0); Mean Platelet Volume 10.3 fL (9.5-13.5); Platelet Count 210 10^3/uL (150-450); Red Blood Count 3.51 10^6/uL (4.20-5.40); Red Cell Distribution Width 20.5 % (11.0-15.0); White Blood Count 14.5 10^3/uL (4.0-11.0)
[2024-06-11] MEDS: SIMETHICONE 80 MG TAB.CHEW PO ×3 (07:46→22:55)
[2024-06-11] MEDS: IBUPROFEN 400 MG TABLET 800 MG PO ×3 (07:46→23:41)
[2024-06-11] MEDS: DOCUSATE SODIUM 100 MG CAPSULE PO ×2 (07:46→21:02)
[2024-06-11] MEDS: OXYCODONE HCL/ACETAMINOPHEN 5MG/325MG 2 TAB PO (07:47)
[2024-06-11] MEDS: ENOXAPARIN SODIUM 40 MG/0.4 ML SYRINGE SUBQ (10:29)
--- NOTE | 2024-06-11 11:39 | PM.OBPN ---
OB - PN: Subj Subjective Patient comments: no complaints, pain well controlled, tolerating diet and flatus present [place] infant status: doing well [place] feeding status: breast and bottle feeding Exam Narrative Exam Narrative: voicing no complaints Constitutional Vital Signs, click to edit/add: Last Vital Signs Temp 98.1 F 06/11/24 07:55 Pulse 86 06/10/24 17:00 Resp 14 06/11/24 07:55 BP 110/81 06/11/24 07:56 Pulse Ox 99 06/11/24 08:00 O2 Del Method Room Air 06/11/24 07:55 Documenting provider has reviewed patient's vital signs: yes Common normals: no apparent distress, oriented x3, healthy appearing, alert and well nourished General appearance: cooperative HENMT Common normals: normocephalic and head/scalp atraumatic Eye Common normals: PERRL Pupil: accommodation reflex normal Neck & C-Spine Common normals: full ROM and supple Respiratory Common normals: normal respiratory effort Auscultation: clear to auscultation bilaterally Cardio Common normals: regular rate and regular rhythm GI Common normals: Normal to inspection, nondistended, normoactive bowel sounds present, soft to palpation and non-tender Common normals: no CVA tenderness Back & Pelvis Common normals: no thoracic nor lumbar tenderness Extremity Common normals: normal to inspection, full ROM and no calf tenderness Neuro Common normals: CN's II-XII intact bilaterally, moves all extremities, no focal motor deficits and no sensory deficits noted Sensorium/orientation: alert Motor exam: strength 5/5 throughout Psych Common normals: mental status grossly normal, thought process normal, cooperative, affect normal and activity/motor behavior normal Results Labs Labs: Short CBC 06/11/24 Range/Units 06:46 WBC 14.5 H (4.0-11.0) 10^3/uL Hgb 7.5 L (12.0-16.0) g/dL Hct 25.1 L (36.0-48.0) % Plt Count 210 (150-450) 10^3/uL Urinary Catheter Management Urinary Catheter Management Urethral: Cath placed during this visit: yes, but has since been removed by the nurse Urethral indwelling: No Insertion date: 06/09/24 Insertion time: 15:10 Removal date: 06/10/24 Removal time: 15:00 OB - PN: A/P Assessment and Plan (1) delivery delivered: Assessment and Plan: clinical exam nonfocal, vss, afebrile, eating, eliminating normally, breast feeding with rare bottle, looks well, voicing no complaints, pain well controlled, has been ambulating (2) Anemia: Assessment and Plan: received two units PRBCs yesterday, hemoglobin above 7. denies dizziness, headache, blurring vision, fatigue, ambulates without problem. will start PO iron if not ordered Qualifiers: Anemia type: iron deficiency Iron deficiency anemia type: other iron deficiency Qualified Code(s): D50.8 - Other iron deficiency anemias Plan see above Plan - day: 2 Plan: routine postop care Time Spent with Patient Time: Total time spent is greater than 50% in coordination of care (as documented) at patient's floor/unit and/or counseling patient: Total time spent with greater than 50% in coordination of care (as documented) at patient's floor/unit and/or counseling patient: less than 15 minutes
--- NOTE | 2024-06-11 15:39 | RESP.RT ---
done oer nursing
[2024-06-11] MEDS: ACETAMINOPHEN 500 MG TABLET 1000 MG PO ×2 (15:41→22:49)
--- NOTE | 2024-06-11 23:56 | PC.NURSE ---
Mom and Dad request a bottle for infant for the next feed. Sim Sensitive brought into room with slow flow nipple.
[2024-06-12] MEDS: ACETAMINOPHEN 500 MG TABLET 1000 MG PO (08:27)
[2024-06-12] MEDS: SIMETHICONE 80 MG TAB.CHEW PO (08:27)
[2024-06-12] MEDS: DOCUSATE SODIUM 100 MG CAPSULE PO (08:27)
[2024-06-12] MEDS: IBUPROFEN 400 MG TABLET 800 MG PO (08:28)
[2024-06-12 08:35] VITALS: PULSE 75; TEMP 36.2; O2SAT 99
[2024-06-12 08:36] VITALS: BP 116/66
--- NOTE | 2024-06-12 10:43 | P.DS_ITS ---
DS: Providers Provider Date of admission: 06/09/24 05:21 Primary care physician: Raghavendra Cook MD Admitting clinician: Nathaniel Lee Consults: 06/09/24 Consult to Anesthesiology Routine Consulting Provider: Justin Rodrigues II Reason for consultation: epidural Has provider been notified: No Discharging clinician: Peggy Tapia Anticipated date of discharge: 06/12/24 DS: Diagnosis Discharge Diagnosis (1) delivery delivered: Assessment and plan: feels well, incision dry and intact, vss normal, afebrile, bottle feeding, performing ADL's without problem, eating and eliminating normally (2) Anemia: Assessment and plan: will continue PO iron feso4 one PO QD for next month, asymptomatic Qualifiers: Anemia type: iron deficiency Iron deficiency anemia type: other iron deficiency Qualified Code(s): D50.8 - Other iron deficiency anemias Plan discharge home with baby OB - DS: Summary Hospital Course Hospital Course: uncomplicated Time spent discussing smoking cessation with patient: 3 to 10 minutes Peripartum Data - Procedures: Procedures Operation Date: 06/09/24 19:50 Actual Procedure Side Surgeon p Not Applicable Nathaniel Lee DO Peripartum Data - Vaginal Delivery Procedures: Procedures Operation Date: 06/09/24 19:50 Actual Procedure Side Surgeon p Not Applicable Nathaniel Lee DO Complications complications: none Infant Delivery method: section Gender: male Discharge plan: home Status at Discharge Cognitive/behavioral status at discharge: wnl Functional status at discharge: independent ambulation Overall status at discharge: patient is progressing back to baseline Time Spent with Patient Time attestation: Total time spent providing and/or coordinating discharge services: Time spent: less than 30 minutes Exam Constitutional Vital Signs, click to edit/add: Last Vital Signs Temp 97.2 F L 06/12/24 08:35 Pulse 75 06/12/24 08:35 Resp 14 06/12/24 08:35 BP 116/66 06/12/24 08:36 Pulse Ox 99 06/12/24 08:35 O2 Del Method Room Air 06/12/24 08:35 Documenting provider has reviewed patient's vital signs: yes Common normals: no apparent distress, average body habitus, oriented x3, no limitations, healthy appearing, alert and well nourished HENMT Common normals: normocephalic and head/scalp atraumatic Eye Common normals: PERRL Pupil: accommodation reflex normal Neck & C-Spine Common normals: full ROM and supple Respiratory Common normals: normal respiratory effort Auscultation: clear to auscultation bilaterally Cardio Common normals: regular rate and regular rhythm GI Common normals: Normal to inspection, nondistended, normoactive bowel sounds present, soft to palpation and non-tender Common normals: no CVA tenderness Back & Pelvis Common normals: no thoracic nor lumbar tenderness Extremity Common normals: normal to inspection, full ROM and no calf tenderness Neuro Common normals: CN's II-XII intact bilaterally, moves all extremities, no focal motor deficits and no sensory deficits noted Motor exam: strength 5/5 throughout Psych Common normals: mental status grossly normal, thought process normal, cooperative, affect normal and speech normal Discharge Plan Discharge Disposition: Home, Self-Care Condition: Good Assessment: previously stated Health Concerns: none Plan of Treatment: discharge home Discharge Medications: Continued Pro Fe 180 mg iron capsule 180 mg PO DAILY [id number] 1 mg tablet 1 tab PO DAILY Print Language: Mosotho Forms: Portal Instructions
--- NOTE | 2024-06-27 17:14 | PM.ONB ---
Brief Operative Note Date of procedure: 06/09/24 Pre-op diagnosis general: iup at 40 6/7wks, distress Post-op diagnosis: same as pre-op Procedure: NAME OF PROCEDURE: [ section ] PROCEDURE: Patient was taken back to the Operating Room where she was given a spinal anesthesia with Duramorph without difficulty. She was prepped and draped in the normal sterile fashion. A Pfannenstiel skin incision was then made 2 cm above the symphysis pubis and carried down to underlying rectus fascia using a Bovie. The fascia was incised in the midline and extended laterally using Natarajan scissors. Two Kate clamps were placed on the superior aspect of the fascia and dissected off the underlying rectus muscles. The same was performed on the inferior aspect as well. The muscles were then in the midline. Peritoneum was identified and entered bluntly. The peritoneum was then extended superiorly and inferiorly with good visualization of the bladder. The bladder blade was inserted. A low transverse incision was made on the patient's uterus and extended laterally digitally. The was then delivered atraumatically after the bladder blade was removed in the cephalic position. The cord was clamped and cut. Cord blood was obtained. The was handed off to awaiting team. The patient's placenta was spontaneously delivered. The uterus was then exteriorized. The uterus was cleared of all clots and debris. The bladder blade was reinserted. The patient's uterine incision was closed using #0 Vicryl in a running lock fashion. Excellent hemostasis was assured. The uterus was then returned to the patient's abdomen. The patient's abdomen was copiously irrigated using warm saline. Peritoneal gutters were cleared of all clots and debris. Again excellent hemostasis was assured. The patient's peritoneum was closed using 3-0 Vicryl in a running fashion. The patient's fascia was closed using #0 Vicryl in a running fashion. The patient's skin was closed using 4-0 Vicryl subcuticularly. The patient tolerated the procedure well. Sponge, lap, and needle counts were correct x2. The patient was taken to the Recovery Room in stable condition. Surgeon: Nathaniel Lee Underwriting Sales Representative: Amelia Maria Estimated blood loss (mL): 575 Pathology: other (placenta) Condition: stable Disposition: PACU Urinary Catheter Management Urinary Catheter Management Urethral: Cath placed during this visit: yes, but has since been removed by the nurse Urethral indwelling: No Insertion date: 06/09/24 Insertion time: 15:10 Removal date: 06/10/24 Removal time: 15:00
== END 2024-06-12 12:55 | disposition home or self-care (01) | DRG 787 ==
PROVIDERS: Admitting Provider Obstetrics & Gynecology; Family Provider Family Medicine; PCP Family Medicine; Visit Provider Obstetrics & Gynecology
PROC: 10D00Z1 Extraction of Products of Conception, Low, Open Approach (ICD-10-PCS; CPT 59514; principal; 2024-06-09 19:50)
DX: O77.9 Labor and delivery complicated by fetal stress, unspecified (principal); D62 Acute posthemorrhagic anemia; Z3A.40 40 weeks gestation of pregnancy; Z37.0 Single live birth; O90.81 Anemia of the puerperium
CPT/HCPCS: 36415; 36430; 51702; 59050; 64488; 80307; 85025; 85027; 86850; 86900; 86901; 86923; 88307; 94667; 94668; J0131; J0665; J0690; J1100; J1650; J1885; J2274; J2300; J2371; J2405; J2590; J2765; J2795; P9016

== ENCOUNTER 2024-06-13 12:28 | Outpatient (OUT) | payer OTHER, MEDICAID, SELFPAY ==
--- NOTE | 2024-06-13 14:51 | PC.NURSE ---
Carmen and 4 day old Hever arrive for follow up appointment. Father of baby here and very supportive . Carmen states doing ok Taking Motrin and Tylenol for discomfort from C/S. States has been home less than 24 hours but feels more comfortable at home. Carmen with VSS and assessment WNL. Pt reports edema felt in upper outer thigh. Area noted to be firm to touch, noted no redness or pitting in area. Incision clean and dry. No redness, drainage or edema of incision. Steri strips intact. States milk started coming in this AM. breasts felt heavier and noted difference in baby's sucking pattern. Baby more content after feeds per parents observation. Baby Hever awake and alert. Tracks parents voices. VSS and assessment WNL for baby. WEight is increased 30 gms from discharge weight. Parents report 3 wets since midnight and no stools today. States smear noticed during diaper changes. to breast, latches easily and burst and pauses noted. Breast filling but not engorged. Reviewed and care as parents ask questions. Both very interested in information. Family home without concerns. Aware to call for question or needs.
[2024-06-13 14:52] VITALS: BP 107/73; PULSE 81; TEMP 36.5; O2SAT 97
== END 2024-06-13 14:25 | disposition home or self-care (01) ==
LOC: FBCO 12:29
PROVIDERS: Family Provider Family Medicine; PCP Family Medicine; Visit Provider Obstetrics & Gynecology
DX: Z39.2 Encounter for routine postpartum follow-up (principal)

== ENCOUNTER 2024-06-27 08:29 | Outpatient (OUT) | payer OTHER, BC, MEDICAID, SELFPAY ==
--- OUTSIDE RECORDS SUMMARY | 2024-06-27 08:55 | XMS_ITS | CCD ---
Author Organization [facility] Care Team Providers Care Rehabilitator Name Role Phone Danitza Cook MD Primary Care Provider ALEJANDRA LAST Attending Unavailable DANITZA COOK Primary Care Unavailable AUSTIN Enamorado Attending Provider [phone] Ella Enamorado Unavailable Danitza COOK Primary Care Physician Danitza COOK Attending Unavailable Danitza Cook MD Primary Care Provider [phone] Braydon Lee DO Attending Provider Braydon Lee Attending Unavailable Braydon Lee Admitting Unavailable NO FAMILY, PHYSICIAN Primary Care Unavailable Ella Enamorado Admitting Unavailable Ella Enamorado Attending Unavailable BRAYDON LEE Attending Unavailable JESUS, BRAYDON Attending Unavailable JESUS, BRAYDON Attending Unavailable DENISE AWAN Attending Unavailable JESUS, BRAYDON Attending Unavailable EMPERATRIZDENISE CASTRO Attending Unavailable JESUS, BRAYDON Attending Unavailable EMPERATRIZDENISE CASTRO Attending Unavailable EMPERATRIZDENISE CASTRO Attending Unavailable JESUS, BRAYDON Attending Unavailable JESUS, BRAYDON Attending Unavailable EMPERATRIZ DENISE Attending Unavailable EMPERATRIZ, DENISE Attending Unavailable Medications [...] polysaccharide iron complex 391 mg oral capsule (20 sources) Start: 02-22-2024 End: 06-16-2025 take 1 capsule by mouth once daily iron polysaccharides (ProFe) 391.3 (180 Fe) MG capsule Indications: Anemia during in second trimester Take 1 capsule (391.3 mg) by mouth Daily 30 capsule 11 06/16/2024 06/16/2025 Active Post-OP Shoe/Soft Top Women - (1 source) Start: 08-01-2023 Post-OP Shoe/Soft Top Women - as directed Jul, Active Problems Active Problems Problem Classification Problem Date Documented Da te Episodic/Chronic Asthma (1 source) Reactive airway disease 03-04-2021 Chronic Malaise and fatigue (2 sources) Fatigue; Translations: [Other fatigue] Onset: 09-03-2023 Episodic Other complications of (4 sources) Anemia of ; Translations: [Anemia complicating [...] 09-03-2023 Episodic Other and delivery including normal (12 sources) Third trimester ; Translations: [Encounter for [...] collapse] Onset: 09-03-2023 Episodic Unclassified (1 source) Patient encounter status 09-02-2023 Unclassified (1 source) Unspecified injury of left foot, initial encounter; Translations: [Unspecified injury of left foot, initial encounter] Onset: 08-01-2023 Viral infection (1 source) Acute viral disease; Translations: [Viral infection, unspecified] Episodic Past or Other Problems Problem Classification Problem Date Documented Da te Episodic/Chronic Nausea and vomiting (20 sources) Nausea and vomiting; Translations: [Nausea with vomiting, unspecified] Onset: 12-31-2023 12-31-2023 Episodic Other screening for suspected conditions (not mental disorders or infectious disease) (20 sources) Patient encounter status; Translations: [Encounter for other specified screening] Onset: 12-31-2023 12-31-2023 Episodic Residual codes; unclassified (20 sources) Gestation period, 17 weeks; Translations: [17 weeks gestation of ] Onset: 12-31-2023 12-31-2023 Episodic Results Test Name Value Interpretation Reference Range Facility Pathology study report docum entOrdered By: Rose Marie Barba on 06-15-2024 Pathology study [facility] Other [facility] CBC WITH PLATELET NO DI FFERENTIALon 06-11-2024 Erythrocyte distribution width (RBC) [Ratio] 20.5 % High 11.0 - 15.0 % [facility] Hematocrit (Bld) [Volume fraction] 25.1 % Low 36.0 - 48.0 % [facility] Hemoglobin (Bld) [Mass/Vol] 7.5 g/dL Low 12.0 - 16.0 g/dL [facility] Interpretation and review of laboratory results Abnormal [facility] MCH (RBC) [Entitic mass] 21.4 pg Low 26.7 - 34.0 pg [facility] MCHC (RBC) [Mass/Vol] 29.9 g/dL 29.9 - 35.2 g/dL [facility] MCV (RBC) [Entitic vol] 71.5 fL Low 81.0 - 99.0 fL [facility] Platelet mean volume (Bld) [Entitic vol] 10.3 fL 9.5 - 13.5 fL [facility] TBH PLT 210 [facility] TB RBC 3.51 Low [facility] TB WBC 14.5 High [facility] ALL CBC WITH AUTO DIFFon BASOPHILS ABSOLUTE AUTO 0 [facility] Basophils/100 WBC (Bld) 0.1 % Low 0.2 - 2.0 % [facility] Eosinophils/100 WBC (Bld) 0 % Low 0.9 - 7.0 % [facility] Erythrocyte distribution width (RBC) [Ratio] 17.9 % High 11.0 - 15.0 % [facility] Hematocrit (Bld) [Volume fraction] 22.2 % Critically low 36.0 - 48.0 % [facility] Comment on above: RESULTS CALLED TO Mandi Flores RN Hemoglobin (Bld) [Mass/Vol] 6.4 g/dL Critically low 12.0 - 16.0 g/dL [facility] Comment on above: RESULTS CALLED TO Mandi Flores RN IMMATURE GRANULOCYTES ABS AUTO 0.16 High [facility] Immature granulocytes/100 WBC (Bld) 0.9 % High 0.0 - 0.5 % [facility] Interpretation and review of laboratory results Abnormal [facility] LYMPHOCYTES ABSOLUTE AUTO 0.8 Low [facility] Lymphocytes/100 WBC (Bld) 4.5 % Low 20.5 - 60.0 % [facility] MCH (RBC) [Entitic mass] 19.5 pg Low 26.7 - 34.0 pg [facility] MCHC (RBC) [Mass/Vol] 28.8 g/dL Low 29.9 - 35.2 g/dL [facility] Comment on above: Slight Hypochromasia present MCV (RBC) [Entitic vol] 67.7 fL Low 81.0 - 99.0 fL [facility] MONOCYTES ABSOLUTE AUTO 1 High [facility] Monocytes/100 WBC (Bld) 5.3 % 1.7 - 12.0 % [facility] NEUTROPHILS ABSOLUTE AUTO 16.2 High [facility] Neutrophils/100 WBC (Bld) 89.2 % High 43.0 - 75.0 % [facility] Platelet mean volume (Bld) [Entitic vol] 10.6 fL 9.5 - 13.5 fL [facility] TBH EO # 0 [facility] TB PLT 239 [facility] RBC 3.28 Low [facility] WBC 18.2 High [facility] WITH [facility]ATELET NO DI FFERENTIALon 06-09-2024 Erythrocyte distribution width (RBC) [Ratio] 17.7 % High 11.0 - 15.0 % [facility] Hematocrit (Bld) [Volume fraction] 30.2 % Low 36.0 - 48.0 % [facility] Hemoglobin (Bld) [Mass/Vol] 8.6 g/dL Low 12.0 - 16.0 g/dL [facility] Interpretation and review of laboratory results Abnormal [facility] MCH (RBC) [Entitic mass] 19 pg Low 26.7 - 34.0 pg [facility] MCHC (RBC) [Mass/Vol] 28.5 g/dL Low 29.9 - 35.2 g/dL [facility] MCV (RBC) [Entitic vol] 66.8 fL Low 81.0 - 99.0 fL [facility] Platelet mean volume (Bld) [Entitic vol] 10.7 fL 9.5 - 13.5 fL [facility] PLT 265 [facility] RBC 4.52 [facility] Comment on above: HYPO 1+ TBH WBC 7.8 [facility] Leroy 06-09-2024 L -- ---- Specimen: [id number] Received: 06/10/24 Status: PREM [place]over Num: [id number] Spec Type: Surgical Subm Dr: Braydon Lee Tissues: A Placenta - 3rd Trimester (Greater than 28 weeks) (PLACENTA) Procedures: , Gross/Micro L5 ---- Age/ Patient Sex Location Account Attending Physician ---- Carmen Marie LABELL [id number] Braydon Lee ---- SPEC NUM: [id number] RECD: 06/10/24 STATUS: PREM [place]OVER NUM: [id number] CANDELARIA: 06/09/[address] [facility] [address]: Braydon Lee ENTERED: 06/10/[address] [facility] [address]: Denice Meneses SPEC TYPE: Surgical DEPT: DARIN JOSHI ENTERED BY: [id number] RECV BY: [id number] ORDERED: , Gross/Micro L5 ORDERED: , Gross/Micro L5 Pathological Diagnosis Placenta removal, delivery: -Mature post term placenta with three-vessel cord, small for gestational age (427 g) -No evidence of acute chorioamnionitis, funisitis, or villitis -Incidental 1 small recent intervillous Thrombo-hematoma with associated hemorrhage -Incidental 1 tiny focus of decidual necrosis at the junction of membrane and disc -Incidental focal minor subchorionic fibrin plaque -No other significant histopathological changes except few occasional microcalcifications, more at the disc edge (A1, A2), and occasionally at basal region (A3), per features of p lacental maturity Clinical Information Nonreassuring heart tones. Placenta G1, P0, Apgars 8, 9, gestational age of 40 weeks and 6 days Gross Description A. Received in formalin labeled with the patient's name and an identifier placenta : Single MEMBRANES: Placenta Sac Rupture (cm from margin): Indeterminate, 60% disrupted up Color: Blue-mcdaniel ---- Specimen: [id number] Received: 06/10/24 Status: PREM Adalberto Num: [id number] Spec Type: Surgical Subm Dr: Braydon Lee Tissues: A Placenta - 3rd Trimester (Greater than 28 weeks) (PLACENTA) Procedures: HE/3, Gross/Micro L5 ---- Patient: Carmen Marie [id number] (Continued) ---- Specimen: [id number] Received: 06/10/24 (Continued) Gross Description (Continued) Signed (signature on file) Rose Marie Barba MD 06/15/24 1439 ---- Specimen: [id number] Received: 06/10/24 Status: PREM [place] Num: [id number] Spec Type: Surgical Subm Dr: Braydon Lee Tissues: A Placenta - 3rd Trimester (Greater than 28 weeks) (PLACENTA) Procedures: HE/3, Gross/Micro L5 ---- Patient: MarieLauro sloana [id number] (Continued) ---- Specimen: [id number] Received: 06/10/24 (Continued) Gross Description (Continued) Other Characteristics: Partially stripped amnion and mucoid Insertion Site: Marginal 100% CORD: Appearance: Unremarkable Site of Insertion: Eccentric, 4 cm from the margin Length Diameter (cm): 32.5 x 1.1 cm True Knots: No Number of vessels: 3 GENERAL: Trimmed Weight (grams): 427 g Complete: Yes Size 1 x Size 2 x Size 3 (cm): 18.5 x 15 x 2.5 cm Accessory Lobe(s): No PLACENTAL DISK: Color of Surface: Blue-mcdaniel Sub-amniotic Cyst: No Amnion Nodosum: No Subchorionic Fibrin: Yes, up to 0.2 cm in thickness, less than 5% Appearance of Cut Surface: There is a paramarginally located, 0.8 cm thrombus, as well as focal calcifications Maternal floor: Focal calcifications Retroplacental hematoma: No Cassettes: A1 Rolled membrane, two sections of cord A2-A3 Tufting Supervisor sections of placenta (to include thrombus in cassette A2) (3, , [id number] A) JG Microscopic Description Microscopic examination is performed. CPT Codes 56712 ---- ---- Specimen: [id number] Received: 06/10/24 Status: PREM [place]over Num: [id number] Spec Type: Surgical Subm Dr: Braydon Lee Tissues: A Placenta - 3rd Trimester (Greater than 28 weeks) (PLACENTA) Procedures: HE/3, Gross/Micro L5 ---- (more content not included)... Normal [facility] Urinalysis macro (dipstick) panel (U)on 06-02-2024 Bilirubin, UA Negative Negative - 4(70) +++ mg/dL [facility] Blood, UA Negative Negative - 50 Rodolfo/mcL [facility] Clarity, UA Clear [facility] Color, UA Yellow [facility] Glucose, UA Negative Negative - 1999(110) ++++ mg/dL [facility] Interpretation and review of laboratory results Normal [facility] Ketones, UA Negative Negative - 160(16) ++++ mg/dL [facility] Leukocytes, UA Negative Negative - 500+++ Julian/mcL [facility] Nitrite, UA Negative Negative - Positive [facility] pH, UA 6 5 - 9 [facility] Protein, UA Negative Negative - 1999(20) ++++ mg/dL [facility] Spec Grav, UA 1.01 1 - 1.03 [facility] Urobilinogen, UA 1.0 0.2 - 12 mg/dL [facility] Urinalysis macro (dipstick) panel (U)on 05-26-2024 Bilirubin, UA Negative Negative - 4(70) +++ mg/dL [facility] Blood, UA Negative Negative - 50 Rodolfo/mcL [facility] Clarity, UA Clear [facility] Color, UA Yellow [facility] Glucose, UA Negative Negative - 1999(110) ++++ mg/dL [facility] Interpretation and review of laboratory results Abnormal [facility] Ketones, UA Negative Negative - 160(16) ++++ mg/dL [facility] Leukocytes, UA Trace Negative - 500+++ Julian/mcL [facility] Nitrite, UA Negative Negative - Positive [facility] pH, UA 7.5 5 - 9 [facility] Protein, UA Negative Negative - 1999(20) ++++ mg/dL [facility] Spec Grav, UA 1.02 1 - 1.03 [facility] Urobilinogen, UA 1.0 0.2 - 12 mg/dL [facility] TBH UA (CLEAN/CATCH) RESIDENTIAL TREATMENT SPECIALIST/CORTNEY RO IF IND.on 05-24-2024 BILIRUBIN URINE Negative NEGATIVE [facility] BLOOD URINE Negative NEGATIVE [facility] Clarity (U) CLEAR CLEAR [facility] Color (U) LT. YELLOW YELLOW [facility] GLUCOSE URINE UA Negative NEGATIVE mg/dL [facility] Interpretation and review of laboratory results Abnormal [facility] Ketones Ql (U) Negative NEGATIVE mg/dL [facility] Leukocyte esterase Test strip Ql (U) TRACE Abnormal NEGATIVE [facility] NITRITE URINE Negative NEGATIVE [facility] pH (U) 6.0 [pH] 5.0 - 9.0 [facility] PROTEIN URINE Negative NEG/TRACE mg/dL [facility] SPECIFIC GRAVITY URINE 1.020 1.005 - 1.025 [facility] URINE MICROSCOPIC INDICATED YES [facility] UROBILINOGEN URINE 1.0 EU/dL 0.2 - 1.0 EU/dL [facility] Urinalysis macro (dipstick) panel (U)on 05-19-2024 Bilirubin, UA Negative Negative - 4(70) +++ mg/dL [facility] Blood, UA Negative Negative - 50 Rodolfo/mcL [facility] Clarity, UA Clear [facility] Color, UA Yellow [facility] Glucose, UA Negative Negative - 1999(110) ++++ mg/dL [facility] Interpretation and review of laboratory results Abnormal [facility] Ketones, UA Negative Negative - 160(16) ++++ mg/dL [facility] Leukocytes, UA Trace Negative - 500+++ Julian/mcL [facility] Nitrite, UA Negative Negative - Positive [facility] pH, UA 6.5 5 - 9 [facility] Protein, UA Negative Negative - 1999(20) ++++ mg/dL [facility] Spec Grav, UA 1.025 1 - 1.03 [facility] Urobilinogen, UA 0.2 0.2 - 12 mg/dL [facility] Urinalysis macro (dipstick) panel (U)on 05-12-2024 Bilirubin, UA Negative Negative - 4(70) +++ mg/dL [facility] Blood, UA Negative Negative - 50 Rodolfo/mcL [facility] Clarity, UA Clear [facility] Color, UA Yudi [facility] Glucose, UA Negative Negative - 1999(110) ++++ mg/dL [facility] Interpretation and review of laboratory results Normal [facility] Ketones, UA Negative Negative - 160(16) ++++ mg/dL [facility] Leukocytes, UA Negative Negative - 500+++ Julian/mcL [facility] Nitrite, UA Negative Negative - Positive [facility] pH, UA 7.0 5 - 9 [facility] Protein, UA Negative Negative - 1999(20) ++++ mg/dL [facility] Spec Grav, UA 1.030 1 - 1.03 [facility] Urobilinogen, UA 1.0 0.2 - 12 mg/dL [facility] Urinalysis macro (dipstick) panel (U)on 05-05-2024 Bilirubin, UA Negative Negative - 4(70) +++ mg/dL [facility] Blood, UA Negative Negative - 50 Rodolfo/mcL [facility] Clarity, UA Clear [facility] Color, UA Yellow [facility] Glucose, UA Negative Negative - 1999(110) ++++ mg/dL [facility] Interpretation and review of laboratory results Normal [facility] Ketones, UA Negative Negative - 160(16) ++++ mg/dL [facility] Leukocytes, UA Negative Negative - 500+++ Julian/mcL [facility] Nitrite, UA Negative Negative - Positive [facility] pH, UA 5.5 5 - 9 [facility] Protein, UA Negative Negative - 1999(20) ++++ mg/dL [facility] Spec Grav, UA 1.020 1 - 1.03 [facility] Urobilinogen, UA 1.0 0.2 - 12 mg/dL [facility] Ambulatory Visit Summaryon 0 09-03-2023 Ambulatory Visit Summary CARMEN MARIE :2005 Visit Date:09/03/2023 Ambulatory Visit Instructions Your Diagnosis Encounter for well adult exam with abnormal findings Fatigue Vasovagal episode Overweight BMI 26.0-26.9,adult Your Care Team Attending Physician - Danitza COOK MD Primary Care Physician - Danitza COOK MD This Is Your Medications List Contact prescribing physician if questions or concerns ethinyl estradiol-norethindron e (Blisovi 24 FE oral tablet) Procedures Performed [...] What How Much When Instructions Unchanged ethinyl estradiol-norethindron e (Blisovi 24 FE oral tablet) 1 Tablets [...] infections (more content not included)... Normal [facility] Family Medicine Office/Clini c Noteon 09-03-2023 Family Medicine Office/Clinic Note Chief Complaint annual chk up, not fasting, no rfs History of Present Illness This is a 18-year-old female here for annual checkup. She is on oral contraceptive prescribed by Bee Waston MOTHER REPAIRER She is up-to-date with her exams. Her [...] . She has a late lunch at [employer]. Usually something caffeinated as well as a [...] are clear. Oropharynx pink and moist. Excellent point hope ira dentition. Without thyromegaly. Clear bilaterally. Regular rate [...] 1 tab(s), Refills(s) 0, Pharmacy: [facility], 163, cm, 10/18/21 8:35:00 EDT, Height/Length Dosing, 73, kg, 10/18/21 8:35:00 EDT, Weight Dosing Portions of this record may have been created with voice recognition artificial intelligence software, specifically [employer], [employer] and or [employer]. Substitutions may have occurred due to the inherent limitations of voice recognition and artificial intelligence software. Follow-up With When Contact Information Danitza COOK MD, FAM In 1 year Additional Instructions: Patient Education Health Maintenance, Female Problem List/Past Medical History Ongoing BMI 26.0-26.9,adult Encounter for well (more content not included)... Normal [facility] Comment on above: Result Comment: Elec barbally Signed By: CHRISTIAN LAGUNA, Danitza\.thuy\Date and Time Signed: 09/03/23 19:27 EST Patient [...] (more content not included)... Normal [facility] XR foot LT min 3V*on 023 XR foot LT min 3V* [facility] Main [place] [address] [place] [id number] XRay Report Signed Patient: Carmen Marie MR#: [id number] 2 : 2005 Acct:[id number] Age/Sex: 18 / F ADM Date: 08/01/23 Loc: [facility] Room: Type: [facility] Attending Dr: Ella Enamorado ETL DATABASE DEVELOPER Copies to: Ella Enamorado APRN Ordering Provider: [...] Marek Plascencia M.D.08/01/2023 1:00 PM Dictation Location: [place] [address] Transcribed By: [facility] 08/01/23 1300 Dictated By: Marek Plascencia DO 08/01/23 1259 Signed By: 08/01/23 1300 Normal [facility] Group A Strep DNAon 03-05-20 21 Group A Strep DNA Specimen Description .THROAT SWAB Special Requests NOT REPORTED Direct Exam Negative: Specimen negative for Streptococcus pyogenes by DNA amplification. Report Status FINAL 03/05/2021 Normal [facility] Comment on above: Performed By: #### G ASDNA #### [facility] [employer] [address] [place], [place] [id number] Occupational Therapist Rehab Manager: Lonny Aquino MD [facility] [address] [place] [address] Occupational Therapist Rehab Manager: Can Lala MD [id number] 03-04-2021 SARS-CoV-2 (COVID-19) RNA SKINNY+probe Ql (Unsp spec) Not detected Normal NOTDET [facility] Comment on above: Result Comment: Rapid NAAT: [...] management decisions. Fact sheet for Healthcare Providers: https://www.fda.gov/media/684848/download Fact sheet for Patients: https://www.fda.gov/media/254589/download Methodology: Isothermal Nucleic Acid Amplification Performed By: #### C OVRB #### [facility] [address] [place] [address] Occupational Therapist Rehab Manager: Can Lala MD COVID-19, RapidOrdered By: Georges Last on 03-03-2021 SARS-CoV-2 (COVID-19) RNA SKINNY+probe Ql (Unsp spec) Not detected Not Detected [facility] Work Phone: Comment on above: Rapid NAAT: [...] management decisions. Fact sheet for Healthcare Providers: https://www.fda.gov/media/930830/download Fact sheet for Patients: https://www.fda.gov/media/557101/download Methodology: Isothermal Nucleic Acid Amplification Specimen Description .NASOPHARYNGEAL SWAB [facility] Phone: [facility] Phone: Strep Gr A Direct Agon 03-03 Strep Gr A Direct Ag Specimen Descriptio n .THROAT Special Requests NOT REPORTED Direct Exam Rapid Strep A negative. A negative Rapid Group A Strep Screen result does not rule out the possibility of Group A Streptococci in the specimen. The [place] [employer] recommends confirmation testing. Therefore, a Group A Strep DNA test will be performed. Report Status FINAL 03/03/2021 Normal [facility] Comment on above: Performed By: #### S GPA #### [facility] [address] [place] [address] Occupational Therapist Rehab Manager: Can Lala MD Strep Screen Group A ThroatO rdered By: Alejandra Last on 03-03-2021 S. pyogenes Ag IA Ql (Unsp spec) Rapid Strep A negative. A negative Rapid Group A Strep Screen result does not rule out the possibility of Group A Streptococci in the specimen. The [place] [employer] recommends confirmation testing. Therefore, a Group A Strep DNA test will be performed. [employer] Phone: Special Requests NOT REPORTED [facility] Phone: Specimen Description .THROAT [facility] [employer] Phone: [facility] [employer] Phone: Vital Signs Date Time Vital Sign Value Performing Clinician Facility 06-16-2024 11:08-0500 Body weight 86.09 kg Denise Awan SC Work Phone: [facility] 06-16-2024 11:08-0500 Diastolic blood pressure 74 mm[Hg] Denise Awan PA Work Phone: [facility] 06-16-2024 11:08-0500 Systolic blood pressure 114 mm[Hg] Denise Awan PA Work Phone: [facility] 06-02-2024 13:44-0400 Body weight 92.26 kg Denise Emperatriz PA Work Phone: [facility] 06-02-2024 13:44-0400 Diastolic blood pressure 76 mm[Hg] Denise Emperatriz PA Work Phone: [facility] 06-02-2024 13:44-0400 Systolic blood pressure 124 mm[Hg] Denise Emperatriz PA Work Phone: [facility] 05-26-2024 10:35-0400 Body weight 91.17 kg Braydon Jesus DO Work Phone: [facility] 05-26-2024 10:35-0400 Diastolic blood pressure 74 mm[Hg] Braydon Jesus DO Work Phone: [facility] 05-26-2024 10:35-0400 Systolic blood pressure 122 mm[Hg] Braydon Jesus DO Work Phone: [facility] 05-19-2024 10:02-0400 Body weight 90.27 kg Braydon Jesus DO Work Phone: [facility] 05-19-2024 10:02-0400 Diastolic blood pressure 70 mm[Hg] Braydon Jesus DO Work Phone: [facility] 05-19-2024 10:02-0400 Systolic blood pressure 120 mm[Hg] Braydon Jesus DO Work Phone: [facility] 05-12-2024 15:46-0400 Body weight 89.81 kg Denise Awan PA Work Phone: [facility] 05-12-2024 15:46-0400 Diastolic blood pressure 70 mm[Hg] Denise Awan PA Work Phone: [facility] 05-12-2024 15:46-0400 Systolic blood pressure 120 mm[Hg] Denise Meadow PA Work Phone: [facility] 05-05-2024 09:11-0400 Body weight 88 kg Denise Awan PA Work Phone: [facility] 05-05-2024 09:11-0400 Diastolic blood pressure 74 mm[Hg] Denise Awan PA Work Phone: [facility] 05-05-2024 09:11-0400 Systolic blood pressure 114 mm[Hg] Denise Awan PA Work Phone: [facility] 09-03-2023 13:19-0500 Blood Pressure Location Danitza Sush.io [facility] 09-03-2023 13:19-0500 Diastolic blood pressure 70 mm[Hg] Danitza Sush[employer]io [facility] 09-03-2023 13:19-0500 Heart rate 67 /min Danitza Sush[employer]io [facility] 09-03-2023 13:19-0500 Respiratory rate 16 /min Danitza Sush[employer]io [facility] 09-03-2023 13:19-0500 SaO2% (BldA) [Mass fraction] 100 % [facility] [facility] 09-03-2023 13:19-0500 Systolic blood pressure 100 mm[Hg] Danitza Sush.io [facility] 08-01-2023 14:00-0500 Body height 165.1 cm Ella Enamorado Other [employer] Other 08-01-2023 14:00-0500 Body mass index (BMI) [Ratio] 25.79 kg/m2 Ella Enamorado Other [employer] Other 08-01-2023 14:00-0500 Body temperature 99.5 [degF] Ella Enamorado Other [employer] Other 08-01-2023 14:00-0500 Body weight 70.31 kg Ella Munozhn Other [employer] Other 08-01-2023 14:00-0500 Respiratory rate 18 /min Ella Fei Other [employer] Other 08-01-2023 14:00-0500 SaO2% (BldA) [Mass fraction] 98 % Ella Enamorado Other [employer] Other 03-03-2021 21:26-0400 Body height 165.1 cm Alejandra Last MD Work Phone: [employer] Work Phone: 03-03-2021 21:26-0400 Body mass index (BMI) [Ratio] 27.12 kg/m2 Alejandra Last MD Work Phone: [employer] Work Phone: 03-03-2021 21:26-0400 Body temperature 100.71 [degF] Alejandra Last MD Work Phone: [employer] Work Phone: 03-03-2021 21:26-0400 Body weight 73.94 kg Alejandra Last MD Work Phone: [employer] Work Phone: 03-03-2021 21:26-0400 Diastolic blood pressure 62 mm[Hg] Alejandra Last MD Work Phone: [employer] Work Phone: 03-03-2021 21:26-0400 Heart rate 96 /min Alejandra Last MD Work Phone: [employer] Work Phone: 03-03-2021 21:26-0400 Respiratory rate 16 /min Alejandra Last MD Work Phone: [employer] Work Phone: 03-03-2021 21:26-0400 SaO2% (BldA) [Mass fraction] 98 % Alejandra Last MD Work Phone: [employer] Work Phone: 03-03-2021 21:26-0400 Systolic blood pressure 128 mm[Hg] Alejandra Last MD Work Phone: [employer] Work Phone: Encounters Encounter Date Encounter Type Care Provider Facility Start: 06-16-2024 End: 06-16-2024 ambulatory DENISE AWAN Not Available Start: 06-16-2024 End: 06-16-2024 Postop follow up visit related to original px Denise BLISS Work Phone: [facility] Comment on above: S/P section ; Encounter for visit; Anemia during in second trimester Start: 06-11-2024 End: 06-11-2024 Clinisync Result Encounter Braydon Jesus DO Work Phone: [facility] Unsolicited Start: 06-11-2024 End: 06-11-2024 Clinisync Result Encounter Braydon Jesus DO Work Phone: [facility] Unsolicited Start: 06-10-2024 End: 06-10-2024 Clinisync Result Encounter Braydon Jesus DO Work Phone: [facility] Unsolicited Start: 06-10-2024 End: 06-10-2024 Clinisync Result Encounter Braydon Jesus DO Work Phone: [facility] Unsolicited Start: 06-09-2024 End: 06-09-2024 ambulatory Braydon Jayzio [facility] Work Phone: Start: 06-09-2024 End: 06-09-2024 Departed Referred Braydon Jesus DO Work Phone: [facility] Start: 06-09-2024 End: 06-09-2024 Clinisync Result Encounter Braydon Jesus DO Work Phone: [facility] Unsolicited Start: 06-09-2024 End: 06-09-2024 Clinisync Result Encounter Braydon Jesus DO Work Phone: [facility] Unsolicited Start: 06-02-2024 End: 06-02-2024 Bamboo flowsheet Denise [...] Bamboo flowsheet Braydon Jesus DO Work Phone: [facility] Start: 05-19-2024 End: 05-19-2024 flow sheet Braydon Jesus DO Work Phone: [facility] Comment on above: 37 weeks gestation o f ; Third trimester Start: 05-19-2024 End: 05-19-2024 ambulatory BRAYDON JESUS Not Available Start: 05-12-2024 End: 05-12-2024 ambulatory DENISE EMPERATRIZ Not Available Start: 05-12-2024 End: 05-12-2024 flow sheet Denise Emperatriz PA Work Phone: [facility] Comment on above: 36 weeks gestation o f ; Third trimester Start: 05-12-2024 End: 05-12-2024 Bamboo flowsheet Denise Awan PA Work Phone: [facility] Start: 05-12-2024 End: 05-12-2024 Bamboo flowsheet Denise Meadow PA Work Phone: [facility] Start: 05-05-2024 End: 05-05-2024 Bamboo flowsheet Denise Meadow PA Work Phone: [facility] Start: 05-05-2024 End: 05-05-2024 Bamboo flowsheet Denise Meadow PA Work Phone: [facility] Start: 05-05-2024 End: 05-05-2024 ambulatory DENISE EMPERATRIZ Not Available Start: 05-05-2024 End: 05-05-2024 flow sheet Denise Meadow PA Work Phone: [facility] Comment on above: Third trimester [...] medical examination with abnormal findings Danitza COOK [facility] Start: 09-03-2023 End: 09-03-2023 Patient encounter procedure Danitza COOK [facility] Start: 08-01-2023 Office outpatient ne w 20 minutes Ella Enamorado [facility] Start: 08-01-2023 End: 08-01-2023 Patient encounter procedure ETL DATABASE DEVELOPER Ella Enamorado Work Phone: [facility] Work Phone: Start: 08-01-2023 End: 08-01-2023 ambulatory PHYSICIAN NO [facility] Work Phone: Start: 03-03-2021 End: 03-04-2021 Emergency department patient visit ALEJANDRA LAST [facility] Start: 03-03-2021 End: 03-03-2021 Emergency department patient visit Alejandra Last MD Work Phone: [facility] ED Comment on above: Acute pharyngitis, u nspecified etiology (Primary Dx); Acute viral syndrome Procedures Date Procedure Procedure Detail Performing Clinician Start: 06-11-2024 [facility] CBC WITH PLATELET NO DIFFERENTIAL Braydon Jesus DO Work Phone: Start: 06-10-2024 ALL CBC WITH AUTO DIFF Braydon Jesus DO Work Phone: Start: 06-09-2024 [facility] CBC WITH PLATELET NO DIFFERENTIAL Braydon Jesus DO Work Phone: Start: 06-02-2024 Urnls dip stick/tablet rgnt non-auto w/o micrscp Denise BLISS Work Phone: Start: 05-26-2024 Urnls dip stick/tablet rgnt non-auto w/o micrscp Braydon Jesus DO Work Phone: Start: 05-24-2024 [facility] UA (CLEAN/CATCH) RESIDENTIAL TREATMENT SPECIALIST/MICRO IF IND. Braydon Jesus DO Work Phone: Start: 05-19-2024 Urnls dip stick/tablet rgnt non-auto w/o micrscp Braydon Jesus DO Work Phone: Start: 05-12-2024 Urnls dip stick/tablet rgnt non-auto w/o micrscp Denise BLISS Work Phone: Start: 05-05-2024 Urnls dip stick/tablet rgnt non-auto w/o micrscp Denise BLISS Work Phone: Start: 08-01-2023 X-ray of left foot ETL DATABASE DEVELOPER Ella Enamorado Work Phone: Start: 03-03-2021 COVID-19, RAPID Alejandra Last MD Work Phone: Start: 03-03-2021 [facility] streptococcus group a Alejandra Last MD Work Phone: H/O: section S/P sectio n Denise BLISS Work Phone: Tonsillectomy and adenoidectomy [facility] CHRISTIAN Plan of Treatment Date Care Activity Detail Author Start: 07-21-2024 End: 07-21-2024 ambulatory 07/21/2024 11:20 AM EST Visit [facility] [address] [place] [id number] Denise Awan, PA [address] [place] [address] [facility] Start: 06-09-2024 End: 06-09-2024 Patient encounter procedure 06/09/2024 9:50 AM EST Routine [facility] [address] [place] [place] [id number] Denise Awan, PA [address] [place] [address] [facility] Start: 06-02-2024 End: 06-02-2025 [...] EDT Ancillary Procedure [facility] [address] [place] [id number] [facility] Start: 05-26-2024 End: 05-26-2024 Patient encounter procedure 05/26/2024 10:30 AM EDT Routine [facility] [address] [place] [phone] Braydon Lee DO [address] [place] [address] [facility] Start: 05-19-2024 End: 05-19-2024 Patient encounter procedure [facility] Comment on above: Arrived Start: 05-12-2024 End: 05-12-2024 Patient encounter procedure 05/12/2024 3:40 PM EDT Routine [facility] [address] [place] [address] Denise Awan PA [address] [place] [address] [facility] Start: 05-05-2024 End: 05-05-2025 Strep B DNA probe, amplification Strep B DNA probe, amplification Lab Routine Third trimester Expected: 05/05/2024 (Approximate), Expires: 05/05/2025 [facility] Healthcare Work Phone: Comment on above: Expected: 05/05/2024 (Approximate), Expires: 05/05/2025 Start: 04-03-2024 Influenza vaccination Influenza Vacc ine (#1) [facility] Start: 04-03-2021 Influenza vaccination Flu vaccine (# 1) [facility] [employer] Phone: Start: 2019 Meningococcal (ACWY) vaccine (1 - 2-dose series) Meningococcal (ACWY) vaccine (1 - 2-dose series) [facility] [employer] Phone: Start: 2019 Screening for Chlamy rika trachomatis Chlamydia screen [facility] [employer] Phone: Start: 2018 HIV screening HIV screen [facility] Work Phone: Start: 2015 COVID-19 Vaccine (1) COVID-19 Vaccin e (1) [facility] [employer] Phone: Start: 2014 HPV vaccine (1 - 2-d ose series) HPV vaccine (1 - 2-dose series) [facility] [employer] Phone: Start: 2010 DTaP/Tdap/Td vaccine (1 - Tdap) DTaP/Tdap/Td vaccine (1 - Tdap) [facility]: Start: 2004 Hepatitis A vaccine (1 of 2 - 2-dose series) Hepatitis A vaccine (1 of 2 - 2-dose series) [employer] Phone: Start: 2004 Measles,Mumps,Rubell a (MMR) vaccine (1 of 2 - Standard series) Measles,Mumps,Rubella (MMR) vaccine (1 of 2 - Standard series) [employer] Phone: Start: 2004 Varicella vaccine (1 of 2 - 2-dose childhood series) Varicella vaccine (1 of 2 - 2-dose childhood series) [employer] Phone: Start: 2003 Polio vaccine (1 of 3 - 4-dose series) Polio vaccine (1 of 3 - 4-dose series) [employer] Phone: Start: 2003 Hepatitis B vaccine (1 of 3 - 3-dose primary series) Hepatitis B vaccine (1 of 3 - 3-dose primary series) [employer] Phone: End: 03-03-2021 Strep A DNA probe, amplification Strep A DNA probe, amplification Lab Routine Once for 1 Occurrences starting 03/03/2021 until 03/03/2021 [employer] Phone: Comment on above: Once for 1 Occurrenc es starting 03/03/2021 until 03/03/2021 Strep A DNA probe, amplification Strep A DNA probe, amplification Lab Routine 03/03/2021 9:46 PM EDT [employer] Phone: Immunizations Immunization Date Immunization Notes Care Provider Fa cilinorma 08-07-2021 SARS-CoV-2 (COVID-19 ) Ad26 vaccine, recombinant Danitza COOK [facility] 01-08-2021 SARS-CoV-2 (COVID-19 ) mRNA BNT-162b2 vax Danitza COOK [facility] Comment on above: Result Comment: alysa @ /w 12-18-2020 SARS-CoV-2 (COVID-19 ) mRNA BNT-162b2 vax Danitza COOK [facility] Comment on above: Result Comment: alysa @ ra/w 02-24-2020 meningococcal polysaccharide (groups A, C, Y and W-135) diphtheria toxoid conjugate vaccine (MCV4P) Danitza COOK [facility] 09-11-2016 HPV, unspecified formulation Danitza COOK [facility] 05-12-2016 HPV, unspecified formulation Danitza COOK [facility] 03-11-2016 diphtheria, tetanus toxoids and acellular pertussis vaccine Danitza COOK [facility] 03-11-2016 HPV, unspecified formulation Danitza COOK [facility] 03-11-2016 meningococcal ACWY vaccine, unspecified formulation Danitza COOK [facility] 01-02-2009 Diphtheria, tetanus toxoids and acellular pertussis vaccine, and poliovirus vaccine, inactivated Danitza COOK [facility] 01-02-2009 varicella virus vaccine Danitza COOK [facility] 05-29-2006 influenza virus vaccine, unspecified formulation Denise BLISS Work Phone: [facility] 10-31-2005 measles, mumps and rubella virus vaccine Danitza COOK [facility] 08-12-2004 diphtheria, tetanus toxoids and acellular pertussis vaccine Danitza COOK [facility] 08-12-2004 varicella virus vaccine [email or web address] [facility] 05-14-2004 haemophilus influenz ae type b vaccine, PRP-T conjugate [email or web address] [facility] 05-10-2004 measles, mumps and rubella virus vaccine [email or web address] [facility] 2003 DTaP-hepatitis B and poliovirus vaccine [email or web address] [facility] 2003 haemophilus influenz ae type b vaccine, PRP-T conjugate [email or web address] [facility] 2003 diphtheria, tetanus toxoids and acellular pertussis vaccine [email or web address] [facility] 2003 haemophilus influenz ae type b vaccine, PRP-T conjugate [email or web address] [facility] 2003 poliovirus vaccine, unspecified formulation [email or web address] [facility] 2003 DTaP-hepatitis B and poliovirus vaccine [email or web address] [facility] 2003 haemophilus influenz ae type b vaccine, PRP-T conjugate [email or web address] [facility] 2003 hepatitis B vaccine, pediatric or pediatric/adolescent dosage [email or web address] [facility] NEGATED: Highlighted row has not occurred!09-03-2023 influenza virus vaccine, unspecified formulation [email or web address] [facility] NEGATED: Highlighted row has not occurred!10-18-2021 influenza virus vaccine, unspecified formulation Danitza COOK [facility] NEGATED: Highlighted row has not occurred!02-24-2020 influenza virus vaccine, unspecified formulation Danitza COOK [facility] Payers Date Payer Category Payer Medicaid [id number] 2024 Medicaid [id number] 2024 [facility] Blue Shield [facility] [id number] 2023 Private Health Insurance [employer] [id number] 2023 Unknown [employer] [id number] 2023-Present [address] [place] [address] [id number]. [id number] 2023 Unknown [id number] 2023 Self-pay 2023 [employer] Blue Shield HUM [id number] 2019 Unknown [id number] [id number]. [id number] 2018 Unknown [id number] [id number]. [id number] 2003 Unknown [id number] 2.16.840.1.007902.3.579.2. 727 2003 Unknown [id number] 2.16.840.1.444378.3.579.2. 1259 2003 Unknown [id number] 2.16.840.1.265069.3.579.2. 1259 2003 Unknown [id number] 2.16.840.1.879057.3.579.2. 1259 2003 Unknown [id number] 2.16.840.1.215018.3.579.2. 1259 2003 Unknown [id number] 2.16.840.1.333485.3.579.2. 1259 2003 Unknown [id number] 2.16.840.1.527543.3.579.2. 1259 2003 Unknown [id number] 2.16.840.1.865246.3.579.2. 1259 2003 Unknown [id number] 2.16.840.1.930258.3.579.2. 1259 2003 Unknown [id number] 2.16.840.1.462629.3.579.2. 1259 2003 Unknown [id number] 2.16.840.1.796781.3.579.2. 1259 2003 Unknown [id number] 2.16.840.1.913777.3.579.2. 1259 2003 Unknown [id number] 2.16.840.1.099876.3.579.2. 1259 2003 Unknown [id number] 2.16.840.1.392648.3.579.2. 1259 2003 Unknown [id number] 2.16.840.1.999694.3.579.2. 1259 1982 Unknown [id number] 2.16.840.1.678647.3.579.2. 174 Unknown [id number] 2.16.840.1.228620.3.579.2. 531 Unknown [id number] 2.16.840.1.845766.3.579.2. 531 Social History Date Type Detail Facility Start: 03-03-2021 End: 04-21-2024 Tobacco smoking status NHIS Never smoker [facility] Start: 03-03-2021 End: 04-21-2024 Tobacco use and exposure Never used [employer] Start: 03-03-2021 End: 06-16-2024 Alcohol intake Lifetime non-drinker (finding) [employer] Phone: Start: 03-03-2021 History SDOH Alcohol Frequency 1 [employer] Phone: Start: 2003 Sex Assigned At Not on file [facility] [employer] Phone: Exposure to SARS-CoV -2 (event) Not sure [employer] Start: 2003 Sex Assigned At Female F [facility] Start: 04-21-2024 Sex Assigned At F [facility] Tobacco smoking status Never [facility] Start: 04-21-2024 History of Social function [facility] Start: 09-11-2023 [facility] Tobacco smoking stat us NHIS Unknown if ever smoked [facility] Work Phone: Start: 06-11-2024 Sex Female (finding) [facility] Functional Status Date Assessment Result Facility 09-03-2023 Functional Status N/A [facility] [place] Clinical Notes 08-01-2023 to 06-16-2024 RUTHY Hernández - 06/16/2024 10:10 AM RUTHY Sanders - 06/02/2024 1:50 PM EDTSkristin Matthews LPN - 05/26/2024 10:30 AM RUTHY Arellano - 05/19/2024 10:00 AM RUTHY Arellano - 05/12/2024 3:40 PM EDT Note Date & Type Note Facility 06-16-2024 History of Present illness Narrative Reason for Appointment: Patient ID: Carmen Marie is a 19 y.o. female who presents for Care and Post-op Visit Patient presents today for Post Follow Up appointment. and 1 Week Post Op Follow Up appointment. MEDICATIONS Current Outpatient Medications Medication Instructions iron polysaccharides (PROFE) 391.3 mg, Oral, Daily ALLERGIES No Known Allergies PROBLEMS Active Ambulatory Problems Diagnosis Date Noted 17 weeks gestation of 12/31/2023 Screening, , for anatomic survey 12/31/2023 Nausea and vomiting 12/31/2023 Resolved Ambulatory Problems Diagnosis Date Noted No Resolved Ambulatory Problems Past Medical History: Diagnosis Date Asthma ([facility]) 2008 HISTORY PAST MEDICAL HISTORY SOCIAL HISTORY Past Medical History: Diagnosis Date Asthma ([facility]) 2008 Social History Tobacco Use Smoking status: Never Smokeless tobacco: Never Substance Use Topics Alcohol use: Never Drug use: Never FAMILY HISTORY Family History Problem Relation Name Age of Onset No Known Problems Mother Diabetes Father Eric Gallagherluther Garcia SURGICAL HISTORY History reviewed. No pertinent surgical [...] nursing note reviewed. Exam conducted with a vba programmer present. Vitals: Estimated body mass index is 27.21 kg/m as calculated from the following: Height as of 12/31/18: 5' 4.5 . Weight as of 12/31/18: 161 lb. BP: 114/74 Patient's last menstrual period was 08/28/2023. ASSESSMENT & PLAN ICD-10-CM 1. S/P section Z98.891 2. Encounter for visit Z39.2 3. Anemia during in second trimester O99.012 iron polysaccharides (ProFe) 391.3 (180 Fe) MG capsule Patient presents today for a one week postop section check. Patient is doing well with minor complaints of pain. Incision has been noted as healing well with no signs and symptoms of infection. Follow Up: Patient is to return in 5 weeks for 6 week evaluation. Documented by RUTHY Hernández on behalf of: RUTHY Hernández documented in this encounter [facility] 06-02-2024 History of Present illness Narrative Reason [...] Problems Past Medical History: Diagnosis Date Asthma ([facility]) 2009 HISTORY PAST MEDICAL HISTORY SOCIAL HISTORY Past Medical History: Diagnosis Date Asthma ([facility]) 2008 Social History Tobacco Use Smoking [...] of: RUTHY Hernández documented in this encounter [facility] 05-26-2024 History of Present illness Narrative [...] Problems Past Medical History: Diagnosis Date Asthma ([facility]) 2008 HISTORY PAST MEDICAL HISTORY SOCIAL HISTORY Past Medical History: Diagnosis Date Asthma ([facility]) 2008 Social History Tobacco Use Smoking [...] nursing note reviewed. Exam conducted with a vba programmer present. Vitals: Estimated body mass index is [...] Braydon Lee DO documented in this encounter [facility] 05-19-2024 History of Present illness Narrative [...] Past Medical History: Diagnosis Date Asthma (CMS/HCC) 2009 HISTORY PAST MEDICAL HISTORY SOCIAL HISTORY Past Medical History: Diagnosis Date Asthma (CMS/HCC) 2009 Social History Tobacco Use Smoking status: Never Smokeless tobacco: Never Substance Use Topics Alcohol use: Never Drug use: Never FAMILY HISTORY Family History Problem Relation Name Age of Onset No Known Problems Mother Diabetes Father Eric Gallagherluther Garcia SURGICAL HISTORY History reviewed. No pertinent surgical [...] by RUTHY Hernández documented in this encounter [facility] 05-12-2024 History of Present illness Narrative [...] Problems Past Medical History: Diagnosis Date Asthma ([facility]) 2008 HISTORY PAST MEDICAL HISTORY SOCIAL HISTORY Past Medical History: Diagnosis Date Asthma ([facility]) 2008 Social History Tobacco Use Smoking [...] nursing note reviewed. Exam conducted with a vba programmer present. Vitals: Estimated body mass index is [...] of: RUTHY Hernández documented in this encounter [facility] 05-05-2024 History of Present illness Narrative [...] HISTORY Past Medical History: Diagnosis Date Asthma ([facility]) 2008 Social History Tobacco Use Smoking [...] nursing note reviewed. Exam conducted with a vba programmer present. Vitals: Estimated body mass index is [...] of: RUTHY Hernández documented in this encounter [facility] 09-03-2023 Evaluation + Plan note Diagnostic Tests PendingCBC w/ Auto Diff 09/03/23Basic Metabolic Panel 09/03/23TSH With T4fr Reflex 09/03/23 [facility] [place] 09-02-2023 Hospital Discharge instructions Patient Education 09/02/2023 [...] provider. Document Revised: 12/09/2021 Document Reviewed: 12/09/2021 [employer] Patient Education 2022 [employer]. Follow Up Care 07/23/2023 13:12:42 With:Danitza COOK MD, FAM Address: When:Within 1 Year(s) [facility] [place] 08-01-2023 Evaluation note Encounter [...] understanding and is agreeable to treatment plan. [employer] Other Evaluation note* Diagnosis Acute pharyngitis, unspecified etiology- Primary Acute viral syndrome documented in this encounter [employer] Work Phone: evaluation noteNo assessment information available [facility] Work Phone: Evaluation note* Diagnosis [...] in third trimester documented in this encounter [facility] HealthcareEvaluation note* Diagnosis S/P section Other postprocedural status Encounter for visit Anemia during in second trimester documented in this encounter [facility] HealthcareHospital course Narrative No data available for this section [facility] Discharge instructions* Attachments The following attachments cannot be sent through Care Everywhere. * Viral Infections: Teen (Kittitian) * Sore Throat: Teen (Kittitian) [facility] [employer] Work Phone: progress note No data available for this section [facility] Advance Directives Documents on File Type Date Recorded Patient Tufting Supervisor Expl anation ACP-Advance Directive ACP-Power of Conservation Technician Advance Directive Response Recorded Date/ Time Advance Directives No August 05, 2023 9:24am Summary Purpose Family History No Family History Records Found No data available for this section No Family History Records FoundNo Family History Records FoundNo Family History Records Found Additional Source Comments Reason for Visit (unrecogniz ed section and content) Reason Comments URI Patient arrives to E [facility] today with complaints of headaches, sore throat, body aches, and congestion for the last 3 days. Patients mother also reports fevers at home of 101.3. Reason Comments Routine Visit Reason Comments Care Post-op Visit Ordered Prescriptions (unrec ognized section and content) Prescription Sig Dispensed Refills Start Date End Da te ibuprofen (ADVIL;MOTRIN) 400 MG tablet Take 1 tablet by mouth every 6 hours as needed for Pain or Fever 30 tablet 1 03/03/2021 INFORMATION SOURCE (unrecogn ized section and content) DATE CREATED AUTHOR 03/06/2021 [facility] DATE CREATED AUTHOR AUTHOR'S ORGANIZ ATION 10/09/2023 [facility] [facility] DATE CREATED AUTHOR AUTHOR'S ORGANIZ ATION 06/17/2024 [facility] DATE CREATED AUTHOR AUTHOR'S ORGANIZ ATION 06/18/2024 [facility] Care Teams (unrecognized sec tion and content) Team Status: Inactive Member Role Status Dates Ella Enamorado APRN Attending Provider Active Rehabilitator Relationship Specialty Start Date End Date Danitza Cook MD [address] [place] [address] PCP - General 10/22/23 Rehabilitator Relationship Specialty Start Date End Date Danitza Cook MD [address] [place] [address] PCP - General 10/22/23 Rehabilitator Relationship Specialty Start Date End Date Danitza Cook MD [address] [place] [address] PCP - General 10/22/23 Rehabilitator Relationship Specialty Start Date End Date Danitza Cook MD [address] [place] [address] PCP - General 10/22/23 Rehabilitator Relationship Specialty Start Date End Date Danitza Cook MD [address] [place] [address] PCP - General 10/22/23 Team Status: Inactive Member Role Status Dates Braydon Lee DO Attending Provider Active Start : June 09, 2024 End: June 09, 2024 Rehabilitator Relationship Specialty Start Date End Date Danitza Cook MD [address] [place] [id number] PCP - General 10/22/23 Goals (unrecognized section and content) Goals may be documented in a n alternate sectionNo Information No data available for this sectionGoals may be documented in an alternate section FOR RECORDS PERTAINING TO PATIENTS WHO [...] BE BASED ON THE PRIMARY CLINICAL RECORDS. [facility] [employer] [facility]. provides no warranty or guarantee of the accuracy or completeness of information in this document.
--- NOTE | 2024-06-27 13:02 | PC.NURSE ---
Carmen and 2 week 4 day old Hever arrives for support. DAILY [facility] here and is supportive as well. Parents frustrated at this time due to course of . is slow to gain weight, supply is a concern. PCP for removed baby from direct and mom told to pump and feed. Pt does not have adequate pump for exclusive pumping. Feels like breasts are softer each day LC validates feeling and struggles with parents. Starts with completing paperwork for pump with [employer]. Info faxed, pt aware to call if no contact after 24 hours. Discussed pumping routine, given handout for exclusive pumping with explanation and power pumping discussed. Mom encouraged to put to breast at feeding time, for at least 10/10, then to top off with bottle of pumped milk/formula. Aware to decrease formula use as supply increases. Mom strongly desires to directly breastfeed infant. Becomes tearful, no one asked me if it was ok to give him a bottle Supported and validated. Scheduled to return 07/04/2024 for support and review of pumping/ output of milk. Parents verbalize understanding of all information.
== END 2024-06-27 13:26 | disposition home or self-care (01) ==
PROVIDERS: Family Provider Family Medicine; PCP Family Medicine; Visit Provider Obstetrics & Gynecology
DX: Z39.1 Encounter for care and examination of lactating mother (principal)